=== PATIENT | male | born 1945 | race Caucasian/White ===

== ENCOUNTER → 2017-10-03 11:35 | Outpatient (CLI) | payer OTHER, SELFPAY ==
[2017-10-03 12:37] LABS: Absolute Lymphocyte Count 0.96 X10^3/ul (0.83-4.51); Absolute Neutrophil Count 4.3 X10^3/uL (2.0-7.7); Basophil# 0.04 X10^3/uL; Basophil% 0.6 % (0-1); Eosinophil# 0.16 X10^3/uL; Eosinophils% 2.6 % (0-5); Hematocrit 41.2 % (40-54); Hemoglobin 13.9 g/dl (13.0-16.5); Lymphocyte # 0.96 X10^3/ul (4.0); Lymphocyte % 15.5 % (19-41); Mean Corp Hgb Conc 33.7 g/gl (32-36); Mean Corpuscular Hgb 30.6 pg (27.0-32.0); Mean Corpuscular Volume 90.7 fL (80-94); Mean Platelet Vol. 9.7 fl (6.2-12.0); Monocyte# 0.71 X10^3/uL; Monocyte% 11.5 % (0-10); Neutrophil # 4.32 X10^3/uL (2.7-7.7); Neutrophil % 69.6 % (47-70); Platelet Count 168 K/mm3 (150-450); RBC Distribution Width CV 12.8 % (11.6-14.6); RBC Distribution Width SD 42.1 fl (35.1-43.9); Red Blood Count 4.54 M/mm3 (4.6-6.2); White Blood Count 6.2 K/mm3 (4.4-11.0)
[2017-10-03 12:41] LABS: POSITIVE COUNT NO; POSITIVE DIFFERENTIAL NO; POSITIVE MORPHOLOGY NO
[2017-10-03 12:58] LABS: EST Glomerular Filtration Rate 63 mL/min (>60); Est Glom Filt Rate - Afr Amer 76 mL/min (>60); PSA,Total- Diagnostic 0.69 ng/mL (0.0-4.0)
== END ==
PROVIDERS: Family Provider Family Medicine; PCP Family Medicine; Visit Provider Radiology Radiation Oncology
DX: Z01.818 Encounter for other preprocedural examination (principal); C61 Malignant neoplasm of prostate
CPT/HCPCS: 36415; 82565; 84153; 85025

== ENCOUNTER → 2017-10-04 12:53 | Outpatient (CLI) | payer OTHER, SELFPAY ==
--- NOTE | 2017-10-04 12:57 | CT_ITS ---
STUDY: CT PELVIS WITH CONTRAST REASON FOR EXAM: Male, 72 years old. Prostate carcinoma, radiation therapy planning. RADIATION DOSAGE (If Supplied By Facility): CTDIvol = ( 24.55 ) mGy, DLP = ( 884.90 ) mGycm TECHNIQUE: Transaxial imaging of the pelvis was performed without oral contrast. 100 ml of Isovue 300 contrast was administered intravenously. Individualized dose optimization techniques were used for this CT. COMPARISON: CT abdomen/pelvis 06/23/2017. FINDINGS: Urinary bladder appears moderately distended, mostly filled with IV contrast within the dependent portion showing no filling defects within the IV contrast collection. Fluid is identified in the urinary bladder nondependent portion and also appears within normal limits without large gross focal bulky lesion identified. Prostate is enlarged, approximately 5.3 x 5.3 cm (previously 6.4 x 5.3 cm) and shows mild metal artifacts from the radium radiation therapy seed implantation. In addition, a slightly larger caliber Martinez type urinary catheter is noted within the nonprostatic urethra whose tip is seen at the prostate apex Normal visualized small intestine. Normal visualized colon. Appendix is visualized and shows normal thickness. There is no pelvic fluid. There is no pelvic lymphadenopathy or mass lesion. Incompletely seen round smooth margin well-circumscribed low-attenuation likely lymph node is seen retroaortic region superior to the bifurcation and measures approximately 1.1 x 1.2 cm, unchanged where comparable. Normal visualized pelvic arteries. No ventral or inguinal bowel herniation is seen. Small adipose tissue containing bilateral inguinal hernias are seen. Normal abdominal wall. Normal osseous structures. CT/CT Pelvis W/CONT Therapy IMPRESSION: Status post radiation therapy treatment of the prostate as described. Electronically Signed: Scott Baugh, at 17:18 EDT Tel , Service support ,
[2017-10-04 13:36] LABS: CREATININE FINGERSTICK 1.1 mg/dL (0.70-1.30)
== END ==
PROVIDERS: Family Provider Family Medicine; PCP Family Medicine; Visit Provider Radiology Radiation Oncology
DX: C61 Malignant neoplasm of prostate (principal)
CPT/HCPCS: 51600; 72193; Q9967

== ENCOUNTER → 2017-11-06 10:38 | Outpatient (CLI) | payer OTHER, SELFPAY ==
[2017-11-06 11:53] LABS: Absolute Lymphocyte Count 0.57 X10^3/ul (0.83-4.51); Absolute Neutrophil Count 3.3 X10^3/uL (2.0-7.7); Basophil# 0.02 X10^3/uL; Basophil% 0.4 % (0-1); Eosinophil# 0.21 X10^3/uL; Eosinophils% 4.5 % (0-5); Hematocrit 41.1 % (40-54); Hemoglobin 13.9 g/dl (13.0-16.5); Lymphocyte # 0.57 X10^3/ul (4.0); Lymphocyte % 12.2 % (19-41); Mean Corp Hgb Conc 33.8 g/gl (32-36); Mean Corpuscular Hgb 30.7 pg (27.0-32.0); Mean Corpuscular Volume 90.7 fL (80-94); Monocyte# 0.61 X10^3/uL; Neutrophil # 3.25 X10^3/uL (2.7-7.7); Neutrophil % 69.5 % (47-70); Platelet Count 145 K/mm3 (150-450); RBC Distribution Width CV 13.4 % (11.6-14.6); RBC Distribution Width SD 43.7 fl (35.1-43.9); Red Blood Count 4.53 M/mm3 (4.6-6.2); White Blood Count 4.7 K/mm3 (4.4-11.0)
[2017-11-06 11:54] LABS: Differential Indicated SCAN CRITERIA MET; POSITIVE COUNT NO; POSITIVE DIFFERENTIAL YES; POSITIVE MORPHOLOGY NO
== END ==
PROVIDERS: Family Provider Family Medicine; PCP Family Medicine; Visit Provider Radiology Radiation Oncology
DX: C61 Malignant neoplasm of prostate (principal)
CPT/HCPCS: 36415; 85025

== ENCOUNTER → 2017-11-27 10:33 | Outpatient (CLI) | payer OTHER, SELFPAY ==
[2017-11-27 11:31] LABS: Absolute Lymphocyte Count 0.48 X10^3/ul (0.83-4.51); Basophil# 0.03 X10^3/uL; Basophil% 0.7 % (0-1); Eosinophils% 6.9 % (0-5); Hematocrit 38.8 % (40-54); Hemoglobin 13.4 g/dl (13.0-16.5); Lymphocyte # 0.48 X10^3/ul (4.0); Lymphocyte % 11.1 % (19-41); Mean Corp Hgb Conc 34.5 g/gl (32-36); Mean Corpuscular Hgb 31.5 pg (27.0-32.0); Mean Corpuscular Volume 91.3 fL (80-94); Mean Platelet Vol. 9.5 fl (6.2-12.0); Monocyte# 0.51 X10^3/uL; Monocyte% 11.8 % (0-10); Neutrophil # 2.98 X10^3/uL (2.7-7.7); Platelet Count 152 K/mm3 (150-450); RBC Distribution Width CV 13.3 % (11.6-14.6); RBC Distribution Width SD 43.3 fl (35.1-43.9); Red Blood Count 4.25 M/mm3 (4.6-6.2); White Blood Count 4.3 K/mm3 (4.4-11.0)
[2017-11-27 11:34] LABS: Differential Indicated SCAN CRITERIA MET; POSITIVE COUNT NO; POSITIVE DIFFERENTIAL YES; POSITIVE MORPHOLOGY NO
== END ==
PROVIDERS: Family Provider Family Medicine; PCP Family Medicine; Visit Provider Radiology Radiation Oncology
DX: C61 Malignant neoplasm of prostate (principal)
CPT/HCPCS: 36415; 85025

== ENCOUNTER → 2018-04-25 10:13 | Outpatient (CLI) | payer OTHER, SELFPAY ==
[2018-04-25 12:18] LABS: PSA,Total- Diagnostic < 0.01 ng/mL (0.0-4.0)
== END ==
PROVIDERS: Family Provider Family Medicine; PCP Family Medicine; Referring Provider Urology; Visit Provider Urology
DX: C61 Malignant neoplasm of prostate (principal)
CPT/HCPCS: 36415; 84153

== ENCOUNTER → 2018-10-25 14:57 | Outpatient (CLI) | payer OTHER, SELFPAY ==
[2018-10-25 16:39] LABS: PSA,Total- Diagnostic 0.09 ng/mL (0.0-4.0)
== END ==
PROVIDERS: Family Provider Family Medicine; PCP Family Medicine; Referring Provider Urology; Visit Provider Urology
DX: C61 Malignant neoplasm of prostate (principal)
CPT/HCPCS: 36415; 84153

== ENCOUNTER → 2019-04-08 10:59 | Outpatient (CLI) | payer OTHER, SELFPAY ==
[2019-04-08 12:27] LABS: Absolute Lymphocyte Count 0.63 X10^3/uL (0.83-4.51); Absolute Neutrophil Count 3.2 X10^3/uL (2.0-7.7); Basophil# 0.04 X10^3/uL; Basophil% 0.9 % (0-1); Eosinophil# 0.17 X10^3/uL; Eosinophils% 3.7 % (0-5); Hematocrit 40.9 % (40-54); Hemoglobin 13.5 g/dL (13.0-16.5); Lymphocyte # 0.63 X10^3/ul (4.0); Lymphocyte % 13.8 % (19-41); Mean Corpuscular Hgb 30.7 pg (27.0-32.0); Mean Platelet Vol. 9.8 fl (6.2-12.0); Monocyte# 0.52 X10^3/uL; Monocyte% 11.4 % (0-10); NRBC Flagged by Analyzer 0 % (0-5); Neutrophil # 3.18 X10^3/uL (2.7-7.7); Platelet Count 143 K/mm3 (150-450); RBC Distribution Width CV 12.8 % (11.6-14.6); RBC Distribution Width SD 43.8 fl (35.1-43.9); White Blood Count 4.6 K/mm3 (4.4-11.0)
[2019-04-08 13:09] LABS: Anion Gap 6 (5-15); BUN 20 mg/dL (7-18); BUN/Creat Ratio 15.6 RATIO (10-20); Calcium,Total 9.1 mg/dL (8.5-10.1); Chloride 109 mmol/L (98-107); Creatinine, Serum 1.28 mg/dL (0.70-1.30); EST Glomerular Filtration Rate 58 mL/min (>60); Est Glom Filt Rate - Afr Amer 71 mL/min (>60); Glucose 94 mg/dL (74-106); Magnesium 2.2 mg/dL (1.6-2.6); Potassium 4.1 mmol/L (3.5-5.1); Sodium Level 143 mmol/L (136-145); T4 Free Direct 1.03 ng/dL (0.76-1.46); Thyroid Stim Hormone (TSH) 1.54 uIU/mL (0.358-3.74)
== END ==
PROVIDERS: Family Provider Family Medicine; PCP Family Medicine; Visit Provider Family Medicine
DX: I48.91 Unspecified atrial fibrillation (principal)
CPT/HCPCS: 36415; 80048; 83735; 84439; 84443; 85025

== ENCOUNTER → 2019-04-08 11:22 | Outpatient (CLI) | payer OTHER, SELFPAY ==
--- NOTE | 2019-04-08 11:29 | RAD_ITS ---
STUDY: X-RAY - RIGHT HAND REASON FOR EXAM: Male, 73 years old. Pain TECHNIQUE: 3 view(s) of the hand. COMPARISON: None. FINDINGS: There is mild joint space narrowing of the radiocarpal articulation consistent with degenerative arthrosis. Normal distal radioulnar joint. Normal visualized carpal bones. Normal carpal articulations There is mild degenerative arthrosis of the carpometacarpal (CMC) articulation of the thumb. Normal second through fifth carpometacarpal joints. There is a mildly demineralized appearance of the metacarpal bones. There is well-corticated irregularity of the fifth metacarpal suggesting old injury. Normal metacarpophalangeal joint of the thumb. Normal interphalangeal joint of the thumb. There is degenerative change of the distal interphalangeal joint of the second and third digits. Normal metacarpophalangeal joints of the second through fifth fingers. Normal proximal and distal interphalangeal joints of the second through fifth fingers. Normal phalanges of the second through fifth fingers. The soft tissue structures are unremarkable. RAD/Hand Min 3 Views IMPRESSION: Old fracture fifth metacarpal suspected. Degenerative change of the wrist, first metacarpal and distal interphalangeal joints suspicious for osteoarthritis. Electronically Signed: Triny Ramsey MD at 16:31 EDT Tel , Service support ,
== END ==
PROVIDERS: Family Provider Family Medicine; PCP Family Medicine; Referring Provider Family Medicine; Visit Provider Family Medicine
DX: M79.644 Pain in right finger(s) (principal)
CPT/HCPCS: 73130

== ENCOUNTER 2019-04-09 18:00 | Emergency (ER) | payer OTHER, SELFPAY ==
[2019-04-09 18:02] VITALS: BP 135/83; PULSE 93; RESP 17; TEMP 36.4; O2SAT 94; BMI 27.6
--- NOTE | 2019-04-09 18:46 | EKG12_ITS ---
Test Reason : PALPATATIONS Blood Pressure : / mmHG Vent. Rate : 069 BPM Atrial Rate : 069 BPM P-R Int : 172 ms QRS Dur : 094 ms QT Int : 398 ms P-R-T Axes : 023 001 025 degrees QTc Int : 426 ms Normal sinus rhythm Normal ECG Confirmed by STAN BELL ([id number]), editor continuity and script STEPHIE VALENTINE ([id number]) on 04/15/2019 12:14:17 PM Referred By: CHACE Confirmed By:STAN BELL
--- NOTE | 2019-04-09 18:47 | ED.VIS.GEN ---
History of Present Illness Chief Complaint: Palpitations Informant: Patient Onset: Days Narrative: Patient presents with a 5-day history of intermittent palpitations. He has a history of paroxysmal A. fib and SVT. He had an ablation performed in 2016 and has not had any symptoms until 5 days ago. Patient states every day for the past 5 days he has had an episode where he feels like his heart is beating fast and irregular. He states his heart rate will get up to maybe 130. He was given instructions to take a dose of metoprolol 50 mg when this occurs. So far each day this is converted him back to a regular heart rate within the hour. He states he was told if the metoprolol did not work he could take flecainide, but he has not come to that. He is a previous patient of Dr. Lee's and is scheduled to see Dr. Gutierrez next week as a new patient. Patient states he felt pretty bad when he left the house today, but heart rate seems to be controlled at this time. Past Medical History - Allergies and Home Meds Allergies/Adverse Reactions: Allergies No Known Allergies Allergy (Verified 04/09/19 18:01) Primary Care Physician: Rashad Gutierrez MD [STAFF PHYSICIAN] - Keep Declan appointment Vega Ochoa MD [Primary Care Provider] - Prior records reviewed: Yes Past Medical History: - - Reviewed Lives: Spouse/ Significant Other Smoking Status: Never smoker Review of Systems General: Denies: Chills, Fever Eyes: Denies: Visual changes - bilaterally ENT: Denies: Bilateral ear pain Cardiovascular: Reports: Chest pain - With irregular heartbeat only, Palpitations Respiratory: Reports: Dyspnea. Denies: Cough Gastrointestinal: Denies: Abdominal pain, Nausea, Vomiting, Diarrhea Genitourinary: Denies: Dysuria Skin: Denies: Rash Hematologic: Denies: Easy bruising Allergy: Denies: Uticaria Physical Exam Vital Signs/Narrative: Vital Signs Temp Pulse Resp BP Pulse Ox 04/09/19 18:02 97.5 F L 93 17 135/83 H 94 Inital Vital Signs reviewed: Yes General: Well nourished, Well developed Head: Normocephalic ENT: Moist mucous membranes Neck: Supple, Nontender Cardiovascular: Regular rate, Regular rhythm Respiratory: No distress, CTA bilaterally Abdomen: Soft, Nontender Back: Nontender Extremities: Nontender Skin: Normal color, No rash Neurological: Alert, Oriented x3 Psychological: Normal affect Diagnostic/Tx/Re-eval Impressions Chest X-Ray 04/09/19 18:50 IMPRESSION: Left base atelectasis and/or scarring. Otherwise, unremarkable examination. Electronically Signed: Mathew Mitchell, at 19:15 EDT Tel , Service support , 04/09/19 18:50 Chest 1 View (Portable) [RAD] Stat Laboratory Results 04/09/19 04/09/19 18:20 18:20 WBC 5.3 RBC 4.50 L Hgb 14.0 Hct 41.4 MCV 92.0 MCH 31.1 MCHC 33.8 RDW Std Deviation 42.3 RDW Coeff of Kenji 12.6 Plt Count 163 MPV 9.5 Immature Gran % (Auto) 0.400 Neut % (Auto) 73.9 H Lymph % (Auto) 12.5 L [place] % (Auto) 8.9 Eos % (Auto) 3.4 Baso % (Auto) 0.9 Absolute Neuts (auto) 3.9 Absolute Lymphs (auto) 0.66 L Nucleated RBC % 0 Sodium 140 Potassium 4.1 Chloride 107 Carbon Dioxide 27.0 Anion Gap 6 BUN 22 H Creatinine 1.37 H Estim Creat Clear Calc 48.84 Est GFR (MDRD) Af Amer 65 Est GFR (MDRD) Non-Af 54 L BUN/Creatinine Ratio 16.1 Glucose 124 H Calcium 9.1 Magnesium 2.3 Troponin I < 0.015 - EKG Initial EKG Interpretation: Sinus Rhythm - Sinus at 69 with no acute ischemia. - Medical Decision Making On repeat evaluation patient is resting comfortably. He states that approximately 20 minutes before I came back in he had a short period of the irregular heartbeat. I went to the monitor and pulled up rhythm strips with occasional PACs. I spoke with Dr. Gonzalez, on-call for cardiology. Patient will be given a 48-hour Holter monitor. He will follow-up with Dr. Gutierrez on Monday as scheduled. When I went back into discussed with the patient about the Holter monitor, he was in a bigeminy rhythm with regular sinus beat followed by a PAC. Impression: Palpitations ED Disposition - Plan for ED Patient: Disposition: Home or Assisted Living Diagnosis: Palpitations Instructions: Palpitations Referrals: Vega Ochoa MD [Primary Care Provider] - Rashad Gutierrez MD [STAFF PHYSICIAN] - Keep Declan appointment
--- NOTE | 2019-04-09 18:50 | RAD_ITS ---
STUDY: X-RAY CHEST REASON FOR EXAM: Male, 73 years old. Chest pain TECHNIQUE: Frontal view of the chest COMPARISON: X-Ray Chest September 20, 2016 FINDINGS: Left base atelectasis and/or scarring is present. The lungs are otherwise unremarkable. The lungs are clear. There are no pleural effusions. There is no pneumothorax. The heart is normal in size. The visualized osseous structures are within normal limits. RAD/Chest 1 View (Portable) IMPRESSION: Left base atelectasis and/or scarring. Otherwise, unremarkable examination. Electronically Signed: Mathew Mitchell, at 19:15 EDT Tel , Service support ,
[2019-04-09 18:55] LABS: Absolute Lymphocyte Count 0.66 X10^3/uL (0.83-4.51); Absolute Neutrophil Count 3.9 X10^3/uL (2.0-7.7); Basophil# 0.05 X10^3/uL; Basophil% 0.9 % (0-1); Eosinophil# 0.18 X10^3/uL; Eosinophils% 3.4 % (0-5); Hematocrit 41.4 % (40-54); Lymphocyte # 0.66 X10^3/ul (4.0); Lymphocyte % 12.5 % (19-41); Mean Corp Hgb Conc 33.8 g/dL (32-36); Mean Corpuscular Hgb 31.1 pg (27.0-32.0); Mean Platelet Vol. 9.5 fl (6.2-12.0); Monocyte# 0.47 X10^3/uL; Monocyte% 8.9 % (0-10); NRBC Flagged by Analyzer 0 % (0-5); Neutrophil # 3.92 X10^3/uL (2.7-7.7); Neutrophil % 73.9 % (47-70); Platelet Count 163 K/mm3 (150-450); RBC Distribution Width CV 12.6 % (11.6-14.6); RBC Distribution Width SD 42.3 fl (35.1-43.9); White Blood Count 5.3 K/mm3 (4.4-11.0)
[2019-04-09 19:01] VITALS: BP 142/85; PULSE 76; RESP 18; O2SAT 95
[2019-04-09 19:11] LABS: Anion Gap 6 (5-15); BUN 22 mg/dL (7-18); BUN/Creat Ratio 16.1 RATIO (10-20); Calcium,Total 9.1 mg/dL (8.5-10.1); Chloride 107 mmol/L (98-107); Creatinine, Serum 1.37 mg/dL (0.70-1.30); EST Glomerular Filtration Rate 54 mL/min (>60); Est Glom Filt Rate - Afr Amer 65 mL/min (>60); Estimated Creatinine Clearance 48.84 ml/min; Glucose 124 mg/dL (74-106); Magnesium 2.3 mg/dL (1.6-2.6); Potassium 4.1 mmol/L (3.5-5.1); Sodium Level 140 mmol/L (136-145)
[2019-04-09] MEDS: 0.9% Normal Saline 1,000 ML 150 ML IV (19:15)
== END 2019-04-09 20:17 | disposition home or self-care (01) ==
PROVIDERS: Emergency Provider Emergency Medicine; Family Provider Family Medicine; PCP Family Medicine
DX: R00.2 Palpitations (principal); I48.0 Paroxysmal atrial fibrillation; I47.1 Supraventricular tachycardia; I49.1 Atrial premature depolarization; Z79.82 Long term (current) use of aspirin; Z79.899 Other long term (current) drug therapy
CPT/HCPCS: 71045; 80048; 83735; 84484; 85025; 93005; 93225; 93226; 96360; 99285; J7030; A4216

== ENCOUNTER → 2019-04-09 19:42 | Outpatient (CLI) | payer OTHER, SELFPAY ==
[2019-04-09 18:02] VITALS: BMI 27.6
== END ==
PROVIDERS: Family Provider Family Medicine; PCP Family Medicine; Visit Provider Internal Medicine Cardiovascular Disease
DX: R00.2 Palpitations (principal)
CPT/HCPCS: 93225; 93226

== ENCOUNTER → 2019-04-10 10:36 | Outpatient (CLI) | payer OTHER, SELFPAY ==
[2019-04-09 18:02] VITALS: BMI 27.6
--- NOTE | 2019-04-10 10:44 | ECHOCS_ITS ---
Reason For Study: AFIB Procedure This was a 2D Doppler, Color Flow transthoracic echocardiogram. Contrast injection was performed. Exam performed in department. Left Ventricle Normal size and thickness. The estimated ejection fraction is 55 %. Normal diastology for age. No regional wall motion abnormalities noted. Right Ventricle Normal right ventricle. Normal systolic function. Atria Normal left atrium. Normal right atrium. No doppler evidence for ASD. Mitral Valve There is no stenosis. No mitral valve insufficiency. Tricuspid Valve There is no tricuspid stenosis. Trivial tricuspid valve insufficiency. Pulmonary artery systolic pressure is 30 mmHg. Aortic Valve Trisinus/trileaflet aortic valve. There is no aortic stenosis. No aortic valve insufficiency. Pulmonic Valve There is no pulmonic valvular stenosis. Trivial pulmonic valve insufficiency. Great Vessels Normal aortic root. Pericardium/Pleural No pericardial effusion. Medication 22 gauge I.V. with prn adaptor inserted into right arm. Diluted definity 4.0ml given slow IV push to enhance endocardial definition. MMode/2D Measurements & Calculations LVIDd: 4.4 cm IVSd: 0.76 cm Ao root diam: 4.0 cm LVIDs: 3.1 cm LVPWd: 0.90 cm RVDd: 3.1 cm FS: 30.7 % LAV(MOD-bp): 37.7 ml EDV(MOD-sp4): 109.9 ml EDV(MOD-sp2): 100.9 ml LAV(MOD-bp) Indexed: 18.4 ml/m2 ESV(MOD-sp4): 45.8 ml EF(MOD-sp2): 57.5 % LAV(MOD-sp2): 42.6 ml EF(MOD-sp4): 58.3 % LAV(MOD-sp4): 31.1 ml SV(MOD-sp4): 64.1 ml SV(MOD-sp2): 58.1 ml LA A4 area: 13.7 cm2 LA dimension(2D): 3.8 cm RA A4 area: 11.1 cm2 Time Measurements MV dec time: 0.22 sec Doppler Measurements & Calculations MV E max alfred: 71.0 cm/sec Lat Peak E' Alfred: 10.2 cm/sec Med Peak E' Alfred: 7.0 cm/sec MV A max alfred: 78.2 cm/sec E/E' lat: 7.0 E/E' med: 10.1 MV E/A: 0.91 Ao V2 max: 99.8 cm/sec LV V1 max: 104.9 cm/sec PA V2 max: 77.8 cm/sec Ao max P.0 mmHg LV V1 max P.4 mmHg PI end-d alfred: 72.4 cm/sec TR max alfred: 239.4 cm/sec TR max P.9 mmHg Interpretation Summary The study was technically limited. Diluted definity 4.0ml given slow IV push to enhance endocardial definition. The estimated ejection fraction is 55 %. Normal diastology for age. Trivial tricuspid valve insufficiency. Pulmonary artery systolic pressure is 30 mmHg. Trivial pulmonic valve insufficiency. The study was technically limited. Ordering Physician: Vega Ochoa Referring Physician: Vega Ochoa Performed By: Brittni Link, GARRICK, RVT
== END ==
PROVIDERS: Family Provider Family Medicine; PCP Family Medicine; Referring Provider Family Medicine; Visit Provider Family Medicine
DX: I48.91 Unspecified atrial fibrillation (principal)
CPT/HCPCS: 93306; Q9957; A4216; C8929

== ENCOUNTER → 2019-05-03 10:33 | Outpatient (CLI) | payer OTHER, SELFPAY ==
[2019-04-15 10:54] VITALS: BMI 27.5
[2019-05-03 17:18] LABS: PSA,Total- Diagnostic 0.12 ng/mL (0.0-4.0)
== END ==
PROVIDERS: Family Provider Family Medicine; PCP Family Medicine; Referring Provider Urology; Visit Provider Urology
DX: C61 Malignant neoplasm of prostate (principal)
CPT/HCPCS: 36415; 84153; G0103

== ENCOUNTER → 2019-10-31 10:07 | Outpatient (CLI) | payer OTHER, SELFPAY ==
[2019-04-15 10:54] VITALS: BMI 27.5
[2019-10-31 12:36] LABS: PSA,Total- Diagnostic 0.21 ng/mL (0.0-4.0)
== END ==
PROVIDERS: PCP Family Medicine; Referring Provider Urology; Visit Provider Urology
DX: Z85.46 Personal history of malignant neoplasm of prostate (principal)
CPT/HCPCS: 36415; 84153

== ENCOUNTER → 2020-01-09 14:20 | Outpatient (CLI) | payer MEDICARE, OTHER, SELFPAY ==
[2019-04-15 10:54] VITALS: BMI 27.5
--- NOTE | 2020-01-09 14:25 | VDUE_ITS ---
Reason For Study: pain, edema Right Proximal Right jugular vein is spontaneous, widely patent, phasic, with no intraluminal echogenicity noted. Right subclavian vein is spontaneous, widely patent, phasic, with no intraluminal echogenicity noted. Right Lower Arm Right radial vein is compressible. Right ulnar vein is compressible. Right Arm Right axillary vein is spontaneous, patent, phasic, competent, compressible and demonstrates augmentation. Right brachial vein is compressible. Right cephalic vein is compressible. Right basilic vein is compressible. Prelim to Dr. Knox. Interpretation Summary Deep veins of the right upper extremity are patent and compressible segmentally. There is no evidence of deep vein thrombosis. The superficial veins of the right upper extremity, the basilic and cephalic veins, are patent and compressible. There is no evidence of right upper extremity superficial thrombophlebitis involving the veins imaged. Ordering Physician: Jordana Knox Performed By: Campbell Barillas RVT ?
== END ==
PROVIDERS: PCP Family Medicine; Referring Provider Family Medicine; Visit Provider Family Medicine
DX: M79.601 Pain in right arm (principal); R22.31 Localized swelling, mass and lump, right upper limb
CPT/HCPCS: 93971

== ENCOUNTER → 2020-01-16 08:40 | Outpatient (CLI) | payer MEDICARE, OTHER, SELFPAY ==
[2019-04-15 10:54] VITALS: BMI 27.5
== END ==
PROVIDERS: PCP Family Medicine; Referring Provider Urology; Visit Provider Urology
DX: R30.0 Dysuria (principal)
CPT/HCPCS: 87086

== ENCOUNTER → 2020-02-12 15:44 | Outpatient (CLI) | payer MEDICARE, OTHER, SELFPAY ==
[2020-02-12 14:50] VITALS: BMI 26.2
[2020-02-12 16:47] LABS: Absolute Lymphocyte Count 0.96 X10^3/uL (0.83-4.51); Absolute Neutrophil Count 4.4 X10^3/uL (2.0-7.7); Basophil# 0.07 X10^3/uL; Basophil% 1.1 % (0-1); Eosinophil# 0.18 X10^3/uL; Eosinophils% 2.9 % (0-5); Hematocrit 43.4 % (40-54); Hemoglobin 14.6 g/dL (13.0-16.5); Lymphocyte # 0.96 X10^3/ul (4.0); Lymphocyte % 15.3 % (19-41); Mean Corp Hgb Conc 33.6 g/dL (32-36); Mean Corpuscular Hgb 31.5 pg (27.0-32.0); Mean Corpuscular Volume 93.7 fL (80-94); Mean Platelet Vol. 9.3 fl (6.2-12.0); Monocyte# 0.59 X10^3/uL; Monocyte% 9.4 % (0-10); NRBC Flagged by Analyzer 0 % (0-5); Neutrophil # 4.44 X10^3/uL (2.7-7.7); Platelet Count 186 K/mm3 (150-450); RBC Distribution Width CV 12.8 % (11.6-14.6); RBC Distribution Width SD 43.7 fl (35.1-43.9); Red Blood Count 4.63 M/mm3 (4.6-6.2); White Blood Count 6.3 K/mm3 (4.4-11.0)
[2020-02-12 17:43] LABS: Anion Gap 3 (5-15); BUN 23 mg/dL (7-18); Chloride 109 mmol/L (98-107); Creatinine, Serum 1.28 mg/dL (0.70-1.30); EST Glomerular Filtration Rate 58 mL/min (>60); Est Glom Filt Rate - Afr Amer 70 mL/min (>60); Glucose 99 mg/dL (74-106); Potassium 4.8 mmol/L (3.5-5.1); Sodium Level 142 mmol/L (136-145); Thyroid Stim Hormone (TSH) 1.77 uIU/mL (0.358-3.74)
== END ==
PROVIDERS: PCP Family Medicine; Referring Provider Specialist; Visit Provider Specialist
DX: I48.0 Paroxysmal atrial fibrillation (principal); E78.5 Hyperlipidemia, unspecified
CPT/HCPCS: 36415; 80048; 84443; 85025

== ENCOUNTER → 2020-05-05 09:27 | Outpatient (CLI) | payer MEDICARE, OTHER, SELFPAY ==
[2020-02-12 14:50] VITALS: BMI 26.2
[2020-05-05 10:33] LABS: PSA,Total- Diagnostic 0.27 ng/mL (0.0-4.0)
== END ==
PROVIDERS: PCP Family Medicine; Referring Provider Urology; Visit Provider Urology
DX: C61 Malignant neoplasm of prostate (principal)
CPT/HCPCS: 36415; 84153

== ENCOUNTER → 2020-11-27 09:03 | Outpatient (CLI) | payer MEDICARE, OTHER, SELFPAY ==
[2020-08-19 14:00] VITALS: BMI 26.8
== END ==
PROVIDERS: PCP Family Medicine; Referring Provider Internal Medicine Cardiovascular Disease; Visit Provider Internal Medicine Cardiovascular Disease
DX: I48.0 Paroxysmal atrial fibrillation (principal); I47.1 Supraventricular tachycardia; Z51.81 Encounter for therapeutic drug level monitoring; Z79.899 Other long term (current) drug therapy; Z98.890 Other specified postprocedural states
CPT/HCPCS: 93225; 93226

== ENCOUNTER 2021-08-19 09:36 | Outpatient (CLI) | payer MEDICARE, OTHER, SELFPAY ==
[2021-08-19 10:57] LABS: PSA,Total- Diagnostic 0.56 ng/mL (0.0-4.0)
== END 2021-08-19 23:59 | disposition home or self-care (01) ==
LOC: LAB 09:38
PROVIDERS: PCP Family Medicine; Referring Provider Urology; Visit Provider Urology
DX: Z85.46 Personal history of malignant neoplasm of prostate (principal)
CPT/HCPCS: 36415; 84153

== ENCOUNTER → 2022-01-26 | Outpatient (CLI) | payer MEDICARE, OTHER, SELFPAY ==
--- NOTE | 2022-01-26 08:15 | RAD_ITS ---
STUDY: X-RAY - ESOPHAGUS (BARIUM SWALLOW) WITH FLUOROSCOPY REASON FOR EXAM: Male, 76 years old. DYSPHAGIA TECHNIQUE: 17 view(s) of the esophagus were obtained following swallowing of barium. FLUOROSCOPY TIME (if supplied): (29 seconds) minutes/seconds COMPARISON: None. FINDINGS: There is no demonstrated esophageal foreign body. There is no demonstrated stricture or mucosal abnormality. Normal gastroesophageal junction, without a demonstrated hiatal hernia. The patient ingested a 12 mm tablet of barium without any difficulty. Normal visualized aortic arch and descending thoracic aorta. Normal visualized pulmonary parenchyma. There are diffuse degenerative changes of the visualized thoracic spine. RAD/Esophagus Dual Contrast IMPRESSION: Normal plain film x-ray examination (barium swallow) of the esophagus. Electronically Signed: Ever Ann MD at 12:05 EDT ,
== END | disposition home or self-care (01) ==
LOC: RAD 07:55
PROVIDERS: PCP Family Medicine; Referring Provider Otolaryngology; Visit Provider Otolaryngology
DX: R13.10 Dysphagia, unspecified (principal)
CPT/HCPCS: 74221

== ENCOUNTER 2022-01-31 09:52 | Emergency (ER) | payer MEDICARE, OTHER, SELFPAY ==
[2022-01-31 09:52] VITALS: BP 135/79; PULSE 56; RESP 16; TEMP 35.9; O2SAT 98; BMI 27.2
--- NOTE | 2022-01-31 10:02 | EKG12_ITS ---
Test Reason : cp Blood Pressure : / mmHG Vent. Rate : 050 BPM Atrial Rate : 050 BPM P-R Int : 214 ms QRS Dur : 102 ms QT Int : 472 ms P-R-T Axes : 030 005 043 degrees QTc Int : 430 ms Sinus bradycardia with 1st degree A-V block Otherwise normal ECG Confirmed by RAMÍREZ PICKERING, PUNEET ([id number]), desk editor MARYBETH ADAMES ([id number]) on 02/01/2022 11:37:57 AM Referred By: Confirmed By:PUNEET ELMORE MD
--- NOTE | 2022-01-31 10:25 | EDS_ITS ---
HPI History of Present Illness Chief Complaint: Chest Pain Informant: patient Narrative Narrative: Patient is a 76-year-old male with history of atrial fibrillation on flecainide, metoprolol and Eliquis as well as GERD on omeprazole presenting with episodes of chest pain. Patient states he gets intermittent episodes of discomfort in his left chest that radiates across his entire left side to his shoulder and neck in a spiderweb pattern for the past 2 weeks. He had 2 episodes in the past 2 weeks and then last night had an episode and then woke up this morning with another episode. Daily last for seconds at a time. He states he has been feeling a little slower and rundown lately. He is currently following with ENT for recurrent cough he is been having for the past few years. He spoke with Dr. Velasquez's office today who recommend he come to the emergency room as he could not get him in quickly. Patient currently denies any complaints besides feeling a little fatigued. States he has been compliant with his Eliquis has not missed any doses. Also states that he wants to make sure he is okay as he is plan on leaving the country in March and wants to get ahead of it. No other complaints at this time. [facility] Medical History Asthma GERD (gastroesophageal reflux disease) Gout History of prostate cancer History of testicular mass Hyperlipidemia Paroxysmal atrial fibrillation SVT (supraventricular tachycardia) Thoracic aortic aneurysm Home Medications omeprazole 20 mg capsule,delayed release 20 mg PO DAILY 09/20/16 [History Last Taken Unknown] flecainide 100 mg tablet 100 mg PO Q12H atrial fibrillation #60 tabs 12/03/20 [Rx Last Taken Unknown] cefdinir 300 mg capsule 300 mg PO BID 08/19/21 [History Last Taken Unknown] apixaban 5 mg tablet 5 mg PO BID #180 tabs 09/02/21 [Rx Last Taken Unknown] metoprolol succinate 50 mg tablet,extended release 24 hr 50 mg PO DAILY #30 tabs 11/24/21 [Rx Last Taken Unknown] Allergy/AdvReac Type Severity Reaction Status Date / Time No Known Allergies Allergy Verified 08/19/21 08:49 Surgical History History of nasal septoplasty History of radiofrequency ablation procedure for cardiac arrhythmia (2014) History of surgical removal of ganglion cyst Social History Smoking Status: Never smoker alcohol intake: current alcohol intake frequency: a few times a month Alcohol type: wine substance use type: does not use caffeine: No what type of physical activity do you participate in: walking ROS ROS ED Constitutional Constitutional ED: Reports other Details: fatigue ; Denies chills or fever(s) Eyes Eyes: Denies blurry vision or change in vision ENT ENT ED: Denies rhinorrhea or sore throat Cardiovascular Cardiovascular: Reports as per HPI and chest pain; Denies palpitations Respiratory/Chest Respiratory/Chest: Reports cough; Denies dyspnea or dyspnea on exertion Gastrointestinal Gastrointestinal: Denies abdominal pain, nausea or vomiting Genitourinary Genitourinary ED: Denies dysuria or urinary frequency Musculoskeletal Musculoskeletal: Denies arthralgias or myalgias Integumentary Denies rash Neurologic Neurologic: Denies headache(s), paresthesias or weakness Psychiatric Psychiatric: Denies anxiety Hematologic/Lymphatic Hematologic/Lymphatic: Reports easy bleeding and easy bruising EXAM Physical Exam Const Vital Signs: 01/31/22 09:52 01/31/22 10:27 01/31/22 10:27 Temperature 96.6 F L Temperature Source Temporal Pulse Rate 56 L Respiratory Rate 16 Respiratory Effort Normal Non-Labored Blood Pressure 135/79 H Blood Pressure Mean 97 Pulse Ox 98 Oxygen Delivery Method Room Air Room Air 01/31/22 12:19 01/31/22 14:23 Temperature Temperature Source Pulse Rate 47 L 51 L Respiratory Rate 18 18 Respiratory Effort Blood Pressure 145/90 H 137/82 H Blood Pressure Mean 108 Pulse Ox 96 98 Oxygen Delivery Method Room Air Positive well nourished and well developed General Appearance ED: well developed and NAD HEENT Reports moist mucous membranes normocephalic and atraumatic Eyes PERRL and EOMs intact bilaterally General Eye ED: Negative for pale conjunctiva Neck supple and no JVD Chest Wall inspection of chest normal and palpation of chest normal Resp normal respiratory effort and clear to auscultation bilaterally Auscultation: Negative for rales, rhonchi or wheezes Cardio regular rhythm and no murmurs Rate: bradycardia Peripheral Pulses: pulses 2+ throughout GI normal to inspection, nondistended, normoactive bowel sounds and soft to palpation Back/Spine no CVA tenderness Extremity normal to inspection General Extremety ED: Negative for edema or tenderness General Extremity: Negative for edema Neuro oriented x3 Neuro Narrative: no focal deficits Motor Exam: Negative for general weakness Psych mental status grossly normal Skin no rashes or lesions noted General Skin Exam: Negative for jaundice Heart Score History: Slightly/Non-Suspicious ECG: Normal Age: >/= 65 years Risk Factors: 1 or 2 Risk Factors Troponin: </= Normal Limit Score: 3 MDM MDM MDM Narrative Medical decision making narrative: Patient evaluated for atypical intermittent chest pain that has been going on for the past 2 weeks was been more frequent in the past 24 hours. Currently asymptomatic. Vital signs remarkable for bradycardia which likely is secondary to metoprolol and flecainide therapy. High since he troponin is normal x4. No acute ischemic EKG changes. EKG does show first-degree AV block and bradycardia but no other arrhythmia. CBC shows a mild leukopenia which is chronic for the patient. BMP unremarkable. Chest x-ray interpreted by myself as well as radiology does not show any acute process but does show a moderate haital hernia. 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 Velasquez, who will set the patient up for outpatient Holter monitor as we are currently out of them in the ER. He does not recommend any further inpatient work-up, testing or medication changes. Patient is agreeable this plan of care. Is discharged home in stable condition. Counseled on return precautions. Patient is counseled he does have a moderate hiatal hernia on his chest x-ray and this could be contributing to some of his chest discomfort as well as his chronic cough. He is given referral for GI for this. Lab Data Attestation: I reviewed the patient's lab results. Labs: Laboratory Results - last 24 hr 01/31/22 01/31/22 01/31/22 10:25 10:25 12:23 WBC 4.2 L RBC 4.57 L Hgb 14.4 Hct 42.2 MCV 92.3 MCH 31.5 MCHC 34.1 RDW Std Deviation 43.9 RDW Coeff of Kenji 13.0 Plt Count 148 L MPV 9.1 Immature Gran % (Auto) 0.200 Neut % (Auto) 63.1 Lymph % (Auto) 18.1 L [place] % (Auto) 12.8 H Eos % (Auto) 4.6 Baso % (Auto) 1.2 H Absolute Neuts (auto) 2.6 Absolute Lymphs (auto) 0.75 L Nucleated RBC % 0 Sodium 140 Potassium 4.3 Chloride 109 H Carbon Dioxide 28.0 Anion Gap 3 L BUN 23 H Creatinine 1.33 H Estim Creat Clear Calc 48.03 Est GFR (MDRD) Af Amer 67 Est GFR (MDRD) Non-Af 55 L BUN/Creatinine Ratio 17.3 Glucose 107 H Calcium 9.1 Magnesium 2.1 Troponin I High Sens 4 4 Radiography Diagnostic Testing: Clinical Impression(s) from Imaging Studies Chest X-Ray 01/31/22 10:40 IMPRESSION: Stable mild increased markings at the left lung base suggestive of scarring. Moderate sized hiatal hernia. Electronically Signed: Ever Ann MD at 10:54 EDT Reading Location ID and State: [facility] / [place] , Service support , Rhythm Strip Rhythm Strip: Sinus bradycardia Rate: 50 Ectopy: None EKG Initial EKG: Interpretation: Sinus Bradycardia Comments: Sinus bradycardia at a rate of 50 First-degree AV block, MI interval 214 Normal axis Normal QRS and QTc Normal ST segments Discharge Plan Triage Chief Complaint: Chest Pain ED Provider: Shaneka Rachel Dx/Rx/DC Orders Clinical Impression: Chest pain, Paroxysmal atrial fibrillation, Hernia, hiatal Instructions: ED Chest Pain, Uncertain Cause, ED Hiatal Hernia Prescriptions: No Action cefdinir 300 mg capsule 300 mg PO BID omeprazole 20 MG capsule 20 mg PO DAILY flecainide 100 mg tablet 100 mg PO Q12H Qty: 60 11RF apixaban 5 mg tablet 5 mg PO BID Qty: 180 4RF metoprolol succinate 50 mg tablet extended release 24 hr 50 mg PO DAILY Qty: 30 11RF Primary Care Provider: Vega Ochoa Referrals: Anuj Velasquez MD [STAFF PHYSICIAN] - Enoc Sanchez DO [STAFF PHYSICIAN] - Vega Ochoa MD [Primary Care Provider] - Activity Restrictions/Additional Instructions: Please follow-up with Dr. Velasquez. His office will arrange for a Holter monitor test that should be contacting you. Please call them if you do not hear from him in the next day. Disposition Disposition: Home, Self Care Discharge Date/Time: 01/31/22 14:23
[2022-01-31 10:33] LABS: Absolute Lymphocyte Count 0.75 X10^3/uL (0.83-4.51); Absolute Neutrophil Count 2.6 X10^3/uL (2.0-7.7); Basophil# 0.05 X10^3/uL; Basophil% 1.2 % (0-1); Eosinophil# 0.19 X10^3/uL; Eosinophils% 4.6 % (0-5); Hematocrit 42.2 % (40-54); Hemoglobin 14.4 g/dL (13.0-16.5); Lymphocyte # 0.75 X10^3/ul (0.83-4.51); Lymphocyte % 18.1 % (19-41); Mean Corp Hgb Conc 34.1 g/dL (32-36); Mean Corpuscular Hgb 31.5 pg (27.0-32.0); Mean Corpuscular Volume 92.3 fL (80-94); Mean Platelet Vol. 9.1 fl (6.2-12.0); Monocyte# 0.53 X10^3/uL; Monocyte% 12.8 % (0-10); NRBC Flagged by Analyzer 0 % (0-5); Neutrophil # 2.62 X10^3/uL (2.7-7.7); Neutrophil % 63.1 % (47-70); Platelet Count 148 K/mm3 (150-450); RBC Distribution Width SD 43.9 fl (35.1-43.9); Red Blood Count 4.57 M/mm3 (4.6-6.2); White Blood Count 4.2 K/mm3 (4.4-11.0)
--- NOTE | 2022-01-31 10:40 | RAD_ITS ---
STUDY: X-RAY CHEST REASON FOR EXAM: Male, 76 years old. Chest pain TECHNIQUE: Single AP portable view of the chest. COMPARISON: Comparison is made with prior study dated 04/09/2019. FINDINGS: EKG electrodes are seen. Stable mild increased linear markings at the left lung base suggestive of scarring. There is no demonstrated pleural abnormality. Normal size heart. Normal mediastinum and devaughn. Normal visualized pulmonary arteries. There is atherosclerotic tortuosity of the aortic arch and descending thoracic aorta. There are diffuse degenerative changes of the visualized thoracic spine. Normal visualized ribs, clavicles, and shoulders. Moderate sized hiatal hernia. RAD/Chest 1 View (Portable) IMPRESSION: Stable mild increased markings at the left lung base suggestive of scarring. Moderate sized hiatal hernia. Electronically Signed: Ever Ann MD at 10:54 EDT ,
[2022-01-31 10:55] LABS: Anion Gap 3 (5-15); BUN 23 mg/dL (7-18); BUN/Creat Ratio 17.3 RATIO (10-20); Calcium,Total 9.1 mg/dL (8.5-10.1); Chloride 109 mmol/L (98-107); Creatinine, Serum 1.33 mg/dL (0.70-1.30); EST Glomerular Filtration Rate 55 mL/min (>60); Est Glom Filt Rate - Afr Amer 67 mL/min (>60); Estimated Creatinine Clearance 48.03 ml/min; Glucose 107 mg/dL (74-106); Magnesium 2.1 mg/dL (1.6-2.6); Potassium 4.3 mmol/L (3.5-5.1); Sodium Level 140 mmol/L (136-145); Troponin-I HS (w/2H Reflex) 4 pg/mL (3.0-78.0)
[2022-01-31 12:19] VITALS: BP 145/90; PULSE 47; RESP 18; O2SAT 96
[2022-01-31 12:29] LABS: Reflex Troponin-HS? (from REC) Y
[2022-01-31 12:53] LABS: Troponin-I HS 4 pg/mL (3.0-78.0)
[2022-01-31 14:23] VITALS: BP 137/82; PULSE 51; RESP 18; O2SAT 98
== END 2022-01-31 14:23 | disposition home or self-care (01) ==
PROVIDERS: Emergency Provider Emergency Medicine; PCP Family Medicine; Visit Provider Emergency Medicine
DX: R07.9 Chest pain, unspecified (principal); I48.0 Paroxysmal atrial fibrillation; E78.5 Hyperlipidemia, unspecified; D72.819 Decreased white blood cell count, unspecified; R00.1 Bradycardia, unspecified; K44.9 Diaphragmatic hernia without obstruction or gangrene; M10.9 Gout, unspecified; J45.909 Unspecified asthma, uncomplicated; K21.9 Gastro-esophageal reflux disease without esophagitis; Z79.01 Long term (current) use of anticoagulants; Z79.899 Other long term (current) drug therapy
CPT/HCPCS: 71045; 80048; 83735; 84484; 85025; 93005; 99283; A4216

== ENCOUNTER → 2022-02-07 | Outpatient (CLI) | payer MEDICARE, OTHER, SELFPAY ==
[2022-02-07 13:51] LABS: PSA,Total- Diagnostic 0.56 ng/mL (0.0-4.0)
== END | disposition home or self-care (01) ==
PROVIDERS: Urology; PCP Family Medicine; Visit Provider Internal Medicine Cardiovascular Disease
DX: Z85.46 Personal history of malignant neoplasm of prostate (principal)
CPT/HCPCS: 36415; 84153; 93225; 93226

== ENCOUNTER → 2022-03-01 | Outpatient (CLI) | payer MEDICARE, OTHER, SELFPAY ==
[2022-03-01 11:13] LABS: AST(SGOT) 23 U/L (15-37); Alanine Aminotransfer ALT/SGPT 33 U/L (16-61); Albumin, Serum 3.6 g/dL (3.2-5.0); Alkaline Phosphatase 82 U/L (45-117); Bilirubin, Direct 0.22 mg/dL (0.00-0.30); Cholesterol 234 mg/dL (200); Globulin 3.5 g/dL (2.2-4.2); High Density Lipoprotein 47 mg/dL; Protein, Total 7.1 g/dL (6.4-8.2); Triglycerides 286 mg/dL; Very Low Density Lipoprotein 57 mg/dL (5-40)
== END | disposition home or self-care (01) ==
LOC: LAB 09:58
PROVIDERS: PCP Family Medicine; Referring Provider Nurse Practitioner Family; Visit Provider Nurse Practitioner Family
DX: E78.5 Hyperlipidemia, unspecified (principal)
CPT/HCPCS: 36415; 80061; 80076

== ENCOUNTER 2022-10-07 08:10 | Outpatient (RCR) | payer MEDICARE, OTHER, SELFPAY ==
[2022-09-30 09:56] LABS: International Normalized Ratio 1.9; Prothrombin Time (Protime)PT. 21.8 SECONDS (11.7-14.9)
[2022-10-07 09:36] LABS: International Normalized Ratio 5.6; Prothrombin Time (Protime)PT. 50.5 SECONDS (11.7-14.9)
== END 2022-10-07 23:00 | disposition home or self-care (01) ==
LOC: LAB 08:10
PROVIDERS: PCP Internal Medicine; Referring Provider Nurse Practitioner Family; Visit Provider Nurse Practitioner Family
DX: I48.0 Paroxysmal atrial fibrillation (principal); Z79.01 Long term (current) use of anticoagulants
CPT/HCPCS: 36415; 85610

== ENCOUNTER 2022-11-04 07:30 | Outpatient (RCR) | payer MEDICARE, OTHER, SELFPAY ==
[2022-10-10 08:42] LABS: Prothrombin Time (Protime)PT. 38.5 SECONDS (11.7-14.9)
[2022-10-14 08:36] LABS: International Normalized Ratio 2.5; Prothrombin Time (Protime)PT. 26.4 SECONDS (11.7-14.9)
[2022-10-21 08:45] LABS: Prothrombin Time (Protime)PT. 31.2 SECONDS (11.7-14.9)
[2022-11-04 08:55] LABS: Prothrombin Time (Protime)PT. 31.7 SECONDS (11.7-14.9)
== END 2022-11-06 02:14 | disposition home or self-care (01) ==
LOC: LAB 07:30
PROVIDERS: PCP Internal Medicine; Referring Provider Nurse Practitioner Family; Visit Provider Nurse Practitioner Family
DX: I48.0 Paroxysmal atrial fibrillation (principal); Z79.01 Long term (current) use of anticoagulants
CPT/HCPCS: 36415; 85610

== ENCOUNTER → 2022-11-15 | Outpatient (CLI) | payer MEDICARE, OTHER, SELFPAY ==
[2022-11-15 10:14] LABS: PSA,Total- Diagnostic 0.65 ng/mL (0.0-4.0)
== END | disposition home or self-care (01) ==
LOC: LAB 09:18
PROVIDERS: PCP Internal Medicine; Referring Provider Urology; Visit Provider Urology
DX: C61 Malignant neoplasm of prostate (principal)
CPT/HCPCS: 36415; 84153

== ENCOUNTER 2022-11-25 07:36 | Outpatient (RCR) | payer MEDICARE, OTHER, SELFPAY ==
[2022-11-25 09:04] LABS: International Normalized Ratio 3.3
== END 2022-11-25 09:00 | disposition home or self-care (01) ==
LOC: LAB 07:36
PROVIDERS: PCP Internal Medicine; Referring Provider Nurse Practitioner Family; Visit Provider Nurse Practitioner Family
DX: I48.0 Paroxysmal atrial fibrillation (principal); Z79.01 Long term (current) use of anticoagulants
CPT/HCPCS: 36415; 85610

== ENCOUNTER 2022-12-27 07:36 | Outpatient (RCR) | payer MEDICARE, OTHER, SELFPAY ==
[2022-12-09 08:15] LABS: International Normalized Ratio 2.7; Prothrombin Time (Protime)PT. 28.7 SECONDS (11.7-14.9)
[2022-12-27 08:36] LABS: International Normalized Ratio 2.5; Prothrombin Time (Protime)PT. 26.8 SECONDS (11.7-14.9)
== END 2022-12-27 18:00 | disposition home or self-care (01) ==
LOC: LAB 07:36
PROVIDERS: PCP Internal Medicine; Referring Provider Nurse Practitioner Family; Visit Provider Nurse Practitioner Family
DX: I48.0 Paroxysmal atrial fibrillation (principal); Z79.01 Long term (current) use of anticoagulants
CPT/HCPCS: 36415; 85610

== ENCOUNTER 2023-02-06 07:22 | Outpatient (RCR) | payer MEDICARE, OTHER, SELFPAY ==
[2023-01-20 08:24] LABS: International Normalized Ratio 3.1; Prothrombin Time (Protime)PT. 32.6 SECONDS (11.7-14.9)
[2023-02-06 07:53] LABS: International Normalized Ratio 2.5; Prothrombin Time (Protime)PT. 27.4 SECONDS (11.7-14.9)
== END 2023-02-06 18:00 | disposition home or self-care (01) ==
LOC: LAB 07:22
PROVIDERS: PCP Internal Medicine; Referring Provider Nurse Practitioner Family; Visit Provider Nurse Practitioner Family
DX: I48.0 Paroxysmal atrial fibrillation (principal); Z79.01 Long term (current) use of anticoagulants
CPT/HCPCS: 36415; 85610

== ENCOUNTER 2023-03-06 07:23 | Outpatient (RCR) | payer MEDICARE, OTHER, SELFPAY ==
[2023-03-06 08:07] LABS: Prothrombin Time (Protime)PT. 31.2 SECONDS (11.7-14.9)
[2023-03-06 08:11] LABS: AST(SGOT) 22 U/L (15-37); Alanine Aminotransfer ALT/SGPT 28 U/L (16-61); Albumin, Serum 3.3 g/dL (3.2-5.0); Alkaline Phosphatase 86 U/L (45-117); Bilirubin, Direct 0.07 mg/dL (0.00-0.30); Cholesterol 261 mg/dL (200); Globulin 3.5 g/dL (2.2-4.2); High Density Lipoprotein 36 mg/dL; Protein, Total 6.8 g/dL (6.4-8.2); Triglycerides 522 mg/dL
== END 2023-03-06 18:00 | disposition home or self-care (01) ==
LOC: LAB 07:23
PROVIDERS: PCP Internal Medicine; Referring Provider Nurse Practitioner Family; Visit Provider Nurse Practitioner Family
DX: I48.0 Paroxysmal atrial fibrillation (principal); Z79.01 Long term (current) use of anticoagulants
CPT/HCPCS: 36415; 80061; 80076; 85610

== ENCOUNTER 2023-04-03 07:26 | Outpatient (RCR) | payer MEDICARE, OTHER, SELFPAY ==
[2023-03-28 10:54] LABS: Cholesterol 274 mg/dL (200); High Density Lipoprotein 42 mg/dL; Triglycerides 402 mg/dL
[2023-04-03 08:24] LABS: International Normalized Ratio 2.4; Prothrombin Time (Protime)PT. 26.6 SECONDS (11.7-14.9)
== END 2023-04-03 18:00 | disposition home or self-care (01) ==
LOC: LAB 07:26
PROVIDERS: PCP Internal Medicine; Referring Provider Nurse Practitioner Family; Visit Provider Nurse Practitioner Family
DX: I48.0 Paroxysmal atrial fibrillation (principal); Z79.01 Long term (current) use of anticoagulants
CPT/HCPCS: 36415; 80061; 85610

== ENCOUNTER 2023-04-27 09:55 | Outpatient (RCR) | payer MEDICARE, OTHER, SELFPAY ==
[2023-04-27 10:33] LABS: International Normalized Ratio 2.1; Prothrombin Time (Protime)PT. 23.9 SECONDS (11.7-14.9)
== END 2023-04-27 18:00 | disposition home or self-care (01) ==
LOC: LAB 09:55
PROVIDERS: PCP Internal Medicine; Referring Provider Nurse Practitioner Family; Visit Provider Nurse Practitioner Family
DX: I48.0 Paroxysmal atrial fibrillation (principal); Z79.01 Long term (current) use of anticoagulants
CPT/HCPCS: 36415; 85610

== ENCOUNTER 2023-05-29 07:28 | Outpatient (RCR) | payer MEDICARE, OTHER, SELFPAY ==
[2023-05-29 08:41] LABS: International Normalized Ratio 2.7
== END 2023-06-08 18:00 | disposition home or self-care (01) ==
LOC: LAB 07:28
PROVIDERS: PCP Internal Medicine; Referring Provider Nurse Practitioner Family; Visit Provider Nurse Practitioner Family
DX: I48.0 Paroxysmal atrial fibrillation (principal); Z79.01 Long term (current) use of anticoagulants
CPT/HCPCS: 36415; 85610

== ENCOUNTER 2023-08-07 07:16 | Outpatient (RCR) | payer MEDICARE, OTHER, SELFPAY ==
[2023-07-17 07:59] LABS: International Normalized Ratio 2.3; Prothrombin Time (Protime)PT. 25.8 SECONDS (11.7-14.9)
[2023-07-17 08:27] LABS: AST(SGOT) 26 U/L (15-37); Alanine Aminotransfer ALT/SGPT 30 U/L (16-61); Albumin, Serum 3.3 g/dL (3.2-5.0); Alkaline Phosphatase 90 U/L (45-117); Bilirubin, Direct 0.11 mg/dL (0.00-0.30); Cholesterol 257 mg/dL (200); Globulin 3.6 g/dL (2.2-4.2); High Density Lipoprotein 35 mg/dL; Protein, Total 6.9 g/dL (6.4-8.2); Triglycerides 428 mg/dL
[2023-07-31 09:10] LABS: International Normalized Ratio 1.7; Prothrombin Time (Protime)PT. 19.7 SECONDS (11.7-14.9)
[2023-08-07 08:51] LABS: International Normalized Ratio 1.4; Prothrombin Time (Protime)PT. 17.3 SECONDS (11.7-14.9)
== END 2023-08-07 18:00 | disposition home or self-care (01) ==
LOC: LAB 07:16
PROVIDERS: PCP Internal Medicine; Referring Provider Nurse Practitioner Family; Visit Provider Nurse Practitioner Family
DX: I48.0 Paroxysmal atrial fibrillation (principal); Z79.01 Long term (current) use of anticoagulants; E78.2 Mixed hyperlipidemia
CPT/HCPCS: 36415; 80061; 80076; 85610

== ENCOUNTER 2023-09-04 07:23 | Outpatient (RCR) | payer MEDICARE, OTHER, SELFPAY ==
[2023-08-18 08:04] LABS: International Normalized Ratio 1.5; Prothrombin Time (Protime)PT. 18.1 SECONDS (11.7-14.9)
[2023-08-28 09:52] LABS: International Normalized Ratio 2.8
[2023-09-04 08:55] LABS: International Normalized Ratio 1.8; Prothrombin Time (Protime)PT. 21.1 SECONDS (11.7-14.9)
== END 2023-09-07 18:00 | disposition home or self-care (01) ==
LOC: LAB 07:23
PROVIDERS: PCP Internal Medicine; Referring Provider Nurse Practitioner Family; Visit Provider Nurse Practitioner Family
DX: I48.0 Paroxysmal atrial fibrillation (principal); Z79.01 Long term (current) use of anticoagulants
CPT/HCPCS: 36415; 85610

== ENCOUNTER → 2023-09-25 | Outpatient (CLI) | payer MEDICARE, OTHER, SELFPAY ==
[2023-09-25 13:30] LABS: ALB/GLOB Ratio 1.2 RATIO (0.9-2.4); AST(SGOT) 19 U/L (15-37); Alanine Aminotransfer ALT/SGPT 27 U/L (16-61); Albumin, Serum 3.6 g/dL (3.2-5.0); Alkaline Phosphatase 84 U/L (45-117); Anion Gap 6 (5-15); BUN 23 mg/dL (7-18); BUN/Creat Ratio 16.8 RATIO (10-20); Calcium,Total 8.9 mg/dL (8.5-10.1); Chloride 108 mmol/L (98-107); Creatinine, Serum 1.37 mg/dL (0.70-1.30); EST Glomerular Filtration Rate 53 mL/min (>60); Est Glom Filt Rate - Afr Amer 64 mL/min (>60); Glucose 110 mg/dL (74-106); Potassium 4.4 mmol/L (3.5-5.1); Protein, Total 6.6 g/dL (6.4-8.2); Sodium Level 142 mmol/L (136-145)
== END | disposition home or self-care (01) ==
LOC: BIMLAB 08:49
PROVIDERS: PCP Internal Medicine; Referring Provider Internal Medicine; Visit Provider Internal Medicine
DX: K21.9 Gastro-esophageal reflux disease without esophagitis (principal); I48.0 Paroxysmal atrial fibrillation
CPT/HCPCS: 36415; 80053

== ENCOUNTER → 2023-09-26 | Outpatient (CLI) | payer MEDICARE, OTHER, SELFPAY ==
--- NOTE | 2023-09-26 09:15 | RAD_ITS ---
STUDY: X-RAY - ESOPHAGUS (BARIUM SWALLOW) WITH FLUOROSCOPY REASON FOR EXAM: Male, 78 years old. Dysphagia. TECHNIQUE: 15 view(s) of the esophagus were obtained following swallowing of barium. FLUOROSCOPY TIME (if supplied): (30 seconds) minutes/seconds COMPARISON: Comparison is made with prior study dated January 26, 2022. FINDINGS: There is no demonstrated esophageal foreign body. There is no demonstrated stricture or mucosal abnormality. Prominence of the cricopharyngeus muscle. Normal gastroesophageal junction, without a demonstrated hiatal hernia. The patient ingested a 12 mm tablet of barium without any difficulty. Normal visualized aortic arch and descending thoracic aorta. Normal visualized pulmonary parenchyma. Normal visualized osseous structures of the thorax. RAD/Esophagus Single Contrast IMPRESSION: Normal plain film x-ray examination (barium swallow) of the esophagus. Prominence of the cricopharyngeus muscle. Electronically Signed: Ever Ann MD at 9:41 EDT ,
== END | disposition home or self-care (01) ==
LOC: RAD 09:06
PROVIDERS: PCP Internal Medicine; Referring Provider Internal Medicine; Visit Provider Internal Medicine
DX: R13.10 Dysphagia, unspecified (principal)
CPT/HCPCS: 74220

== ENCOUNTER 2023-10-02 07:14 | Outpatient (RCR) | payer MEDICARE, OTHER, SELFPAY ==
[2023-09-18 09:12] LABS: International Normalized Ratio 2.4; Prothrombin Time (Protime)PT. 25.9 SECONDS (11.7-14.9)
[2023-10-02 08:42] LABS: Prothrombin Time (Protime)PT. 31.2 SECONDS (11.7-14.9)
== END 2023-10-08 01:15 | disposition home or self-care (01) ==
LOC: LAB 07:14
PROVIDERS: PCP Internal Medicine; Referring Provider Nurse Practitioner Family; Visit Provider Nurse Practitioner Family
DX: I48.0 Paroxysmal atrial fibrillation (principal); Z79.01 Long term (current) use of anticoagulants
CPT/HCPCS: 36415; 85610

== ENCOUNTER 2023-11-06 07:22 | Outpatient (RCR) | payer MEDICARE, OTHER, SELFPAY ==
[2023-10-24 08:32] LABS: International Normalized Ratio 1.8; Prothrombin Time (Protime)PT. 20.9 SECONDS (11.7-14.9)
[2023-10-24 09:06] LABS: AST(SGOT) 22 U/L (15-37); Alanine Aminotransfer ALT/SGPT 32 U/L (16-61); Albumin, Serum 3.5 g/dL (3.2-5.0); Alkaline Phosphatase 81 U/L (45-117); Bilirubin, Direct 0.11 mg/dL (0.00-0.30); Cholesterol 276 mg/dL (200); Globulin 3.3 g/dL (2.2-4.2); High Density Lipoprotein 43 mg/dL; Protein, Total 6.8 g/dL (6.4-8.2); Triglycerides 319 mg/dL; Very Low Density Lipoprotein 64 mg/dL (5-40)
[2023-11-06 08:19] LABS: Prothrombin Time (Protime)PT. 30.7 SECONDS (11.7-14.9)
== END 2023-11-07 23:51 | disposition home or self-care (01) ==
LOC: LAB 07:22
PROVIDERS: PCP Internal Medicine; Referring Provider Nurse Practitioner Family; Visit Provider Nurse Practitioner Family
DX: I48.0 Paroxysmal atrial fibrillation (principal); Z79.01 Long term (current) use of anticoagulants; E78.2 Mixed hyperlipidemia
CPT/HCPCS: 36415; 80061; 80076; 85610

== ENCOUNTER 2023-11-20 07:25 | Outpatient (RCR) | payer MEDICARE, OTHER, SELFPAY ==
[2023-11-20 08:41] LABS: International Normalized Ratio 2.4
== END 2023-11-20 18:00 | disposition home or self-care (01) ==
LOC: LAB 07:25
PROVIDERS: PCP Internal Medicine; Referring Provider Nurse Practitioner Family; Visit Provider Nurse Practitioner Family
DX: I48.0 Paroxysmal atrial fibrillation (principal); Z79.01 Long term (current) use of anticoagulants
CPT/HCPCS: 36415; 85610

== ENCOUNTER 2023-12-25 07:05 | Outpatient (RCR) | payer MEDICARE, OTHER, SELFPAY ==
[2023-12-11 09:56] LABS: International Normalized Ratio 1.6; Prothrombin Time (Protime)PT. 19.2 SECONDS (11.7-14.9)
[2023-12-18 08:52] LABS: International Normalized Ratio 2.2; Prothrombin Time (Protime)PT. 24.1 SECONDS (11.7-14.9)
[2023-12-25 08:27] LABS: International Normalized Ratio 2.5; Prothrombin Time (Protime)PT. 26.7 SECONDS (11.7-14.9)
== END 2023-12-25 18:00 | disposition home or self-care (01) ==
LOC: LAB 07:05
PROVIDERS: PCP Internal Medicine; Referring Provider Nurse Practitioner Family; Visit Provider Nurse Practitioner Family
DX: I48.0 Paroxysmal atrial fibrillation (principal); Z79.01 Long term (current) use of anticoagulants
CPT/HCPCS: 36415; 85610

== ENCOUNTER 2024-01-29 06:55 | Outpatient (RCR) | payer MEDICARE, OTHER, SELFPAY ==
[2024-01-08 08:35] LABS: International Normalized Ratio 3.7; Prothrombin Time (Protime)PT. 36.3 SECONDS (11.7-14.9)
[2024-01-15 09:27] LABS: Prothrombin Time (Protime)PT. 31.2 SECONDS (11.7-14.9)
[2024-01-29 07:24] LABS: International Normalized Ratio 3.1; Prothrombin Time (Protime)PT. 32.1 SECONDS (11.7-14.9)
== END 2024-02-07 18:00 | disposition home or self-care (01) ==
LOC: LAB 06:55
PROVIDERS: PCP Internal Medicine; Referring Provider Nurse Practitioner Family; Visit Provider Nurse Practitioner Family
DX: I48.0 Paroxysmal atrial fibrillation (principal); Z79.01 Long term (current) use of anticoagulants
CPT/HCPCS: 36415; 85610

== ENCOUNTER 2024-02-26 06:56 | Outpatient (RCR) | payer MEDICARE, OTHER, SELFPAY ==
[2024-02-12 08:55] LABS: International Normalized Ratio 1.8; Prothrombin Time (Protime)PT. 20.9 SECONDS (11.7-14.9)
[2024-02-26 08:11] LABS: International Normalized Ratio 2.7; Prothrombin Time (Protime)PT. 28.1 SECONDS (11.7-14.9)
== END 2024-02-26 18:00 | disposition home or self-care (01) ==
LOC: LAB 06:56
PROVIDERS: PCP Internal Medicine; Referring Provider Nurse Practitioner Family; Visit Provider Nurse Practitioner Family
DX: I48.0 Paroxysmal atrial fibrillation (principal); Z79.01 Long term (current) use of anticoagulants
CPT/HCPCS: 36415; 85610

== ENCOUNTER 2024-03-18 07:07 | Outpatient (RCR) | payer MEDICARE, OTHER, SELFPAY ==
[2024-03-12 08:48] LABS: International Normalized Ratio 3.9; Prothrombin Time (Protime)PT. 37.6 SECONDS (11.7-14.9)
[2024-03-18 08:35] LABS: International Normalized Ratio 2.8
== END 2024-03-18 18:00 | disposition home or self-care (01) ==
LOC: LAB 07:07
PROVIDERS: PCP Internal Medicine; Referring Provider Nurse Practitioner Family; Visit Provider Nurse Practitioner Family
DX: I48.0 Paroxysmal atrial fibrillation (principal); Z79.01 Long term (current) use of anticoagulants
CPT/HCPCS: 36415; 85610

== ENCOUNTER 2024-04-29 07:11 | Outpatient (RCR) | payer MEDICARE, OTHER, SELFPAY ==
[2024-04-15 08:30] LABS: International Normalized Ratio 1.9; Prothrombin Time (Protime)PT. 21.6 SECONDS (11.7-14.9)
[2024-04-29 08:26] LABS: International Normalized Ratio 1.8; Prothrombin Time (Protime)PT. 20.3 SECONDS (11.7-14.9)
== END 2024-04-29 18:00 | disposition home or self-care (01) ==
LOC: LAB 07:11
PROVIDERS: PCP Internal Medicine; Referring Provider Nurse Practitioner Family; Visit Provider Nurse Practitioner Family
DX: I48.0 Paroxysmal atrial fibrillation (principal); Z79.01 Long term (current) use of anticoagulants
CPT/HCPCS: 36415; 85610

== ENCOUNTER → 2024-05-10 | Outpatient (CLI) | payer MEDICARE, OTHER, SELFPAY ==
--- NOTE | 2024-05-10 15:44 | STRESSREP ---
Stress Test Report Exercise myocardial perfusion stress test. 79-year-old man with a history of antiarrhythmic therapy Stress protocol: Resting EKG demonstrates sinus bradycardia with a first-degree AV block and a rate of 54 bpm resting blood pressure is 124/68 mmHg. The patient exercised according to the regular [employer] protocol for a total duration of 9 minutes attaining a maximum heart rate of 126 bpm which was 90% of maximum predicted heart rate; the maximum workload was 10.1 metabolic equivalents. At rest there were no ST or T wave changes noted to suggest ischemia and at peak exercise upsloping ST changes only were noted which did not meet the criteria for ischemia. No clinical angina was noted the test was terminated due to the target heart rate being achieved/fatigue. The peak blood pressure was 170/70 mmHg. Rate-pressure product was 20,000. Myocardial perfusion protocol. 10.8 mCi of technetium 99m sestamibi was injected at rest. The patient exercised according to regular [employer] protocol for total duration of 9 minutes and at peak exercise 31.9 mCi of technetium 99m sestamibi was injected stress images were obtained stress and rest images were reconstructed in comparing the short axis vertical long and horizontal long axis. Gated images were also obtained. Perfusion SPECT analysis: Review of the stress images demonstrate normal uptake of tracer noted in all areas of the myocardium. The resting images similarly demonstrate normal uptake of tracer noted in all areas of the myocardium. No areas of reversibility are noted to suggest ischemia no previous infarct was noted. Gated SPECT analysis: The gated ejection fraction is 69%. Conclusion: Normal exercise myocardial perfusion stress test at a high workload Preserved ejection fraction.
== END | disposition home or self-care (01) ==
LOC: CVS 06:03
PROVIDERS: PCP Internal Medicine; Referring Provider Nurse Practitioner Family; Visit Provider Nurse Practitioner Family
DX: R94.31 Abnormal electrocardiogram [ECG] [EKG] (principal); I48.0 Paroxysmal atrial fibrillation; I47.10 Supraventricular tachycardia, unspecified; Z51.81 Encounter for therapeutic drug level monitoring; Z79.899 Other long term (current) drug therapy
CPT/HCPCS: 78452; 93017; A9500; A4216

== ENCOUNTER 2024-06-04 06:54 | Outpatient (RCR) | payer MEDICARE, OTHER, SELFPAY ==
[2024-05-13 08:57] LABS: International Normalized Ratio 1.6; Prothrombin Time (Protime)PT. 19.4 SECONDS (11.7-14.9)
[2024-05-20 07:47] LABS: International Normalized Ratio 2.4; Prothrombin Time (Protime)PT. 26.3 SECONDS (11.7-14.9)
[2024-06-04 08:12] LABS: International Normalized Ratio 2.6; Prothrombin Time (Protime)PT. 27.7 SECONDS (11.7-14.9)
== END 2024-06-08 18:00 | disposition home or self-care (01) ==
LOC: LAB 06:54
PROVIDERS: PCP Internal Medicine; Referring Provider Nurse Practitioner Family; Visit Provider Nurse Practitioner Family
DX: I48.0 Paroxysmal atrial fibrillation (principal); Z79.01 Long term (current) use of anticoagulants

== ENCOUNTER 2024-06-24 06:49 | Outpatient (RCR) | payer MEDICARE, OTHER, SELFPAY ==
[2024-06-17 07:38] LABS: International Normalized Ratio 3.7; Prothrombin Time (Protime)PT. 36.6 SECONDS (11.7-14.9)
[2024-06-24 07:46] LABS: International Normalized Ratio 2.7; Prothrombin Time (Protime)PT. 28.3 SECONDS (11.7-14.9)
== END 2024-06-24 18:00 | disposition home or self-care (01) ==
LOC: LAB 06:49
PROVIDERS: PCP Internal Medicine; Referring Provider Nurse Practitioner Family; Visit Provider Nurse Practitioner Family
DX: I48.0 Paroxysmal atrial fibrillation (principal); Z79.01 Long term (current) use of anticoagulants

== ENCOUNTER 2024-07-16 06:48 | Outpatient (RCR) | payer MEDICARE, OTHER, SELFPAY ==
[2024-07-16 09:15] LABS: International Normalized Ratio 1.6; Prothrombin Time (Protime)PT. 19.6 SECONDS (11.7-14.9)
== END 2024-07-16 18:00 | disposition home or self-care (01) ==
LOC: LAB 06:48
PROVIDERS: PCP Internal Medicine; Referring Provider Nurse Practitioner Family; Visit Provider Nurse Practitioner Family
DX: I48.0 Paroxysmal atrial fibrillation (principal); Z79.01 Long term (current) use of anticoagulants
CPT/HCPCS: 36415; 85610

== ENCOUNTER → 2024-09-25 | Outpatient (CLI) | payer MEDICARE, OTHER, SELFPAY ==
[2024-09-25 12:26] LABS: Absolute Lymphocyte Count 0.98 X10^3/uL (0.83-4.51); Absolute Neutrophil Count 2.8 X10^3/uL (2.0-7.7); Basophil# 0.07 X10^3/uL; Basophil% 1.4 % (0-1); Eosinophil# 0.28 X10^3/uL; Eosinophils% 5.8 % (0-5); Hematocrit 41.6 % (40-54); Hemoglobin 13.9 g/dL (13.0-16.5); Lymphocyte # 0.98 X10^3/ul (0.83-4.51); Lymphocyte % 20.2 % (19-41); Mean Corp Hgb Conc 33.4 g/dL (32-36); Mean Corpuscular Hgb 31.2 pg (27.0-32.0); Mean Corpuscular Volume 93.3 fL (80-94); Mean Platelet Vol. 9.6 fl (6.2-12.0); Monocyte# 0.66 X10^3/uL; Monocyte% 13.6 % (0-10); NRBC Flagged by Analyzer 0 % (0-5); Neutrophil # 2.84 X10^3/uL (2.7-7.7); Neutrophil % 58.6 % (47-70); Platelet Count 178 K/mm3 (150-450); RBC Distribution Width CV 13.2 % (11.6-14.6); RBC Distribution Width SD 44.6 fl (35.1-43.9); Red Blood Count 4.46 M/mm3 (4.6-6.2); White Blood Count 4.9 K/mm3 (4.4-11.0)
[2024-09-25 12:54] LABS: ALB/GLOB Ratio 1.5 RATIO (0.9-2.4); AST(SGOT) 25 U/L (<=37); Alanine Aminotransfer ALT/SGPT 25 U/L (<=46); Alkaline Phosphatase 90 U/L (40-129); Anion Gap 10 (5-15); BUN 18 mg/dL (4-19); BUN/Creat Ratio 14.8 RATIO (10-20); Bilirubin, Direct 0.34 mg/dL (0.00-0.30); Calcium,Total 9.6 mg/dL (7.6-11.0); Carbon Dioxide 25.7 mmol/L (21.0-32.0); Chloride 108 mmol/L (98-108); Cholesterol 222 mg/dL (<=200); Creatinine, Serum 1.24 mg/dL (0.70-1.20); EST Glomerular Filtration Rate 59 (>60); Globulin 2.7 g/dL (2.2-4.2); Glucose 106 mg/dL (70-99); High Density Lipoprotein 46 mg/dL; Low Density Lipoprotein Calc. 138 mg/dL; PSA,Total- Diagnostic 0.49 ng/mL (0.00-4.00); Potassium 4.7 mmol/L (3.3-5.1); Protein, Total 6.7 g/dL (5.9-8.4); Sodium Level 144 mmol/L (133-145); Total Bilirubin 0.98 mg/dL (0.00-1.30); Triglycerides 190 mg/dL; Very Low Density Lipoprotein 38 mg/dL (5-40); cholesterol:hdl ratio screen 4.85
== END | disposition home or self-care (01) ==
LOC: BIMLAB 09:11
PROVIDERS: PCP Internal Medicine; Referring Provider Internal Medicine; Visit Provider Internal Medicine
DX: E78.2 Mixed hyperlipidemia (principal); K21.9 Gastro-esophageal reflux disease without esophagitis; Z85.46 Personal history of malignant neoplasm of prostate
CPT/HCPCS: 36415; 80053; 80061; 82248; 84153; 85025

== ENCOUNTER → 2025-03-26 | Outpatient (CLI) | payer MEDICARE, OTHER, SELFPAY ==
--- NOTE | 2025-03-26 08:10 | RAD_ITS ---
PROCEDURE: ESOPHAGUS DUAL CONTRAST 03/26/2025 REASON FOR EXAM: DYSPHONIA TECHNIQUE: ESOPHAGUS DUAL CONTRAST FLUOROSCOPIC TIME: 32 seconds. FLUOROGRAPHIC IMAGES: 46 Radiation dose: 5.4 mGy COMPARISON: None FINDINGS: The patient ingested barium. Multiple fluoroscopic images were obtained. No evidence of esophageal obstruction. No mass lesion is seen. There is no evidence of gastroesophageal reflux. The patient ingested a 12 mm tablet the barium. The tablet passed through the gastroesophageal junction without any problem. RAD/Esophagus Dual Contrast IMPRESSION: Unremarkable air-contrast esophagram barium swallow. Reading Location: [facility]
== END | disposition home or self-care (01) ==
LOC: RAD 08:06
PROVIDERS: PCP Internal Medicine; Referring Provider Otolaryngology; Visit Provider Otolaryngology
DX: R49.0 Dysphonia (principal)
CPT/HCPCS: 74221

== ENCOUNTER → 2025-04-15 | Outpatient (CLI) | payer MEDICARE, OTHER, SELFPAY ==
[2025-04-15 10:39] LABS: PSA,Total- Diagnostic 0.33 ng/mL (0.00-4.00)
== END | disposition home or self-care (01) ==
PROVIDERS: PCP Internal Medicine; Referring Provider Urology; Visit Provider Urology
DX: C61 Malignant neoplasm of prostate (principal)
CPT/HCPCS: 36415; 84153

== ENCOUNTER → 2025-06-25 | Outpatient (CLI) | payer MEDICARE, OTHER, SELFPAY ==
--- NOTE | 2025-06-25 13:53 | ECHOD_ITS ---
Reason For Study Reason For Study: ATRIAL FIB-FLUTTER Procedure This was a 2D Doppler, Color Flow transthoracic echocardiogram. Exam performed in department. Left Ventricle Normal LV size. Left ventricular systolic function is normal. The left ventricular ejection fraction is 70 %. Stage 1 diastolic dysfunction. No regional wall motion abnormalities noted. Right Ventricle Normal RV size. Normal systolic function. Atria Normal left atrium. Normal right atrium. Mitral Valve Normal mitral valve. Tricuspid Valve Normal tricuspid valve. Mild (1+) tricuspid valve insufficiency. Pulmonary artery systolic pressure is 25 mmHg. Aortic Valve Normal aortic valve. Trisinus/trileaflet aortic valve. Pulmonic Valve Normal pulmonic valve. Great Vessels Normal aortic root. The pulmonary artery is normal size. Normal inferior vena cava. Pericardium/Pleural No pericardial effusion. MMode/2D Measurements & Calculations LVIDd: 4.5 cm IVSd: 0.68 cm Ao root diam: 3.7 cm LVIDs: 3.2 cm LVPWd: 0.75 cm RVDd: 3.7 cm FS: 30.2 % LAV(MOD-bp): 37.8 ml LVAd ap4: 27.9 cm2 LVAd ap2: 24.5 cm2 LAV(MOD-bp) Indexed: 18.1 ml/m2 LVLd ap4: 8.2 cm LVLd ap2: 8.0 cm LAV(MOD-sp2): 39.2 ml EDV(MOD-sp4): 80.1 ml EDV(MOD-sp2): 61.8 ml LAV(MOD-sp4): 32.5 ml EDV(sp4-el): 80.6 ml EDV(sp2-el): 63.9 ml LVAs ap4: 13.9 cm2 LVAs ap2: 12.1 cm2 LVLs ap4: 6.9 cm LVLs ap2: 6.6 cm ESV(MOD-sp4): 25.3 ml ESV(MOD-sp2): 19.0 ml ESV(sp4-el): 23.8 ml ESV(sp2-el): 18.8 ml EF(MOD-sp4): 68.4 % EF(MOD-sp2): 69.3 % EF(sp4-el): 70.5 % SV(MOD-sp4): 54.8 ml SV(MOD-sp2): 42.8 ml EDV(MOD-bp): 71.3 ml SI(MOD-sp4): 26.3 ml/m2 SI(MOD-sp2): 20.5 ml/m2 ESV(MOD-bp): 22.1 ml EF(MOD-bp): 69.0 % SV(sp4-el): 56.8 ml LA dimension(2D): 3.5 cm LA A4 area: 15.3 cm2 RA A4 area: 14.1 cm2 TAPSE: 1.5 cm Time Measurements MV dec time: 0.33 sec Doppler Measurements & Calculations MV E max alfred: 55.0 cm/sec Lat Peak E' Alfred: 9.0 cm/sec Med Peak E' Alfred: 6.7 cm/sec MV A max alfred: 75.2 cm/sec E/E' lat: 6.1 E/E' med: 8.2 MV E/A: 0.73 Ao V2 max: 92.0 cm/sec LV V1 max: 75.7 cm/sec MV dec slope: 165.0 cm/sec2 Ao max P.4 mmHg LV V1 max P.3 mmHg Ao V2 mean: 66.8 cm/sec LV V1 mean P.3 mmHg Ao mean P.0 mmHg LV V1 mean: 54.8 cm/sec Ao V2 VTI: 23.6 cm LV V1 VTI: 17.5 cm AV (velocity ratio): 0.74 PA V2 max: 67.9 cm/sec TR max alfred: 235.5 cm/sec TR max P.2 mmHg ECHO/Echo Complete Interpretation Summary Normal LV size. Left ventricular systolic function is normal. The left ventricular ejection fraction is 70 %. Stage 1 diastolic dysfunction. Structurally normal valves. Ordering Physician: Anuj Velasquez Referring Physician: Negra Meneses Performed By: Rajeev Bañuelos RDCS
--- OUTSIDE RECORDS SUMMARY | 2025-06-25 20:21 | XMS RPT_ITS | CCD ---
Author Organization [facility] Care Team Providers Care Field Irrigation Worker Name Role Phone Dr. Vega Ochoa Primary Care Provider Dr. Vega Ochoa Referring Provider 1([facility])[phone] Roof CASINO SHIFT MANAGER, CASINO SHIFT MANAGER-Kaya Parker Attending Provider Dr. Vega Ochoa Primary Care Provider Dr. Vega Ochoa Referring Provider 1([facility])[phone] Negra Meneses Attending Provider 1([facility]) Dr. Negra Meneses Primary Care Provider Dr. Negra Meneses Referring Provider [phone]) DAVIN Taylor Attending Provider Dr. Negra Meneses Primary Care Provider Dr. Negra Meneses Referring Provider 1(330) Dr. Anuj Velasquez Attending Provider 1([facility])- DAVIN Taylor Attending Provider Dr. Negra Meneses Primary Care Provider Dr. Negra Meneses Referring Provider 1(330) DAVIN Kearns Attending Provider Dr. Negra Meneses Attending Provider 1(330) DAVIN Castro Attending Provider 1(330) Dr. Anuj Velasquez Attending Provider 1([facility])-57 Dr. Negra Meneses Primary Care Provider Dr. Negra Meneses Referring Provider 1([facility]) DAVIN Kearns Attending Provider Dr. Negra Meneses Attending Provider 1(330) DAVIN Castro Attending Provider 1(330) Dr. Anuj Velasquez Attending Provider [phone] Vega Ochoa Referring Provider Unavailable Gabriela PICKERING, Vega Sam Primary Care Provider Dr. Negra Meneses Primary Care Provider Dr. Negra Meneses Referring Provider [phone] DAVIN Kearns Attending Provider Gabriela PICKERING, Vega Sam Primary Care Provider [phone] Gideon PICKERING, Dr. Omer Primary Care Provider [phone] Roof CASINO SHIFT MANAGER-C, Bea H Attending Provider [phone] Roof CASINO SHIFT MANAGER-C, Bea H Referring Provider [phone] Dr. Anuj Velasquez MD Other Provider Dr. Negra Meneses MD Attending Provider Dr. Negra Meneses MD Referring Provider VIJAY ALVAREZ Attending Unavailable VEGA OCHOA Primary Care Unavailable SUKHDEV TILLMAN Attending Unavailable VEGA OCHOA Primary Care Unavailable SUKHDEV TILLMAN Referring Unavailable VEGA OCHOA Primary Care Unavailable SUKHDEV TILLMAN Referring Unavailable Dr. Negra Meneses MD Primary Care Provider [phone] Dr. Negra Meneses MD Referring Provider Garret Kearns Attending Provider Dr. Negra Meneses MD Primary Care Physician Garret Kearns Attending Physician Ronald PICKERING, Dr. Beauchamp Attending Physician Dr. Nito Cardenas MD Referring Provider Roof CASINO SHIFT MANAGER, Bea H Consulting Unavailable Roof CASINO SHIFT MANAGER, Bea H Referring Unavailable [place], Negra Primary Care Unavailable Eva, Anuj Attending Unavailable [place], Negra Referring Unavailable Gideon, Negra Attending Unavailable Gideon, Negra Primary Care Unavailable Gideon, Negra Referring Unavailable [place], Negra Attending Unavailable [place], Negra Primary Care Unavailable ShantanuGalindoBrendan Referring Unavailable Shantanu, Brendan Attending Unavailable [place], Negra Primary Care Unavailable [place], Negra Referring Unavailable Gideon, Negra Attending Unavailable [place], Negra Primary Care Unavailable Roof CASINO SHIFT MANAGER, Bea H Attending Unavailable Roof CASINO SHIFT MANAGER, Bea H Referring Unavailable Gideon, Negra Primary Care Unavailable Eva, Anuj Consulting Unavailable Roof CASINO SHIFT MANAGER, Bea H Referring Unavailable Roof CASINO SHIFT MANAGER, Bea H Attending Unavailable [place], Negra Primary Care Unavailable Roof CASINO SHIFT MANAGER, Bea H Attending Unavailable Roof CASINO SHIFT MANAGER, Bea H Referring Unavailable [place], Negra Primary Care Unavailable Eva, Anuj Consulting Unavailable Roof CASINO SHIFT MANAGER, Bea H Attending Unavailable Roof CASINO SHIFT MANAGER, Bea H Referring Unavailable Gideon, Negra Primary Care Unavailable Eva, Sheridan Consulting Unavailable Roof CASINO SHIFT MANAGER, Bea H Attending Unavailable Roof CASINO SHIFT MANAGER, Bea H Referring Unavailable [place], Negra Primary Care Unavailable Eva, Anuj Consulting Unavailable Gideon, Negra Referring Unavailable Gideon, Negra Attending Unavailable [place], Negra Primary Care Unavailable Nito Cardenas Referring Unavailabl e Nito Cardenas Attending Unavailabl e Gideon, Negra Primary Care Unavailable [place], Negra Referring Unavailable Garret Kearns Attending Unavailable [place], Negra Primary Care Unavailable Medications Current Medications Medication Drug Class(es) Dates Sig (Normalized) Sig (Original) multivit-minerals/ferrou s fum (MULTI VITAMIN ORAL) (10 sources) multivit-mineral s/moraima us fum (MULTI VITAMIN ORAL) Take by mouth. Active multivit-mineral s/ferrous fum (MULTI VITAMIN ORAL) Take by mouth. 0 Active Comment on above: Take by mouth. Multivitamin preparation (20 sources) Start: 09-22-2022 take 1 tablet by mouth once daily Multivitamin Active 1 TABLET PO DAILY September 21, 2022 11:00pm Start: 09-22-2022 take 1 tablet by reuben th once daily Multivitamin Active 1 TABLET PO DAILY September 22, 2022 12:00am Start: 04-09-2019 End: 04-15-2019 take 1 tablet by mouth once daily Multivitamin Discontinued 1 TABLET PO DAILY April 08, 2019 11:00pm April 15, 2019 10:01am Start: 04-09-2019 End: 04-15-2019 take 1 tablet by mouth once daily Multivitamin Discontinued 1 TABLET PO DAILY April 09, 2019 12:00am April 15, 2019 11:01am Multivitamin tablet (6 sources) Start: 09-22-2022 Start: 09-22-2022 Multivitamin t ablet Active 1 {tbl} PO DAILY September 22, 2022 12:00am Start: 04-09-2019 End: 04-15-2019 Multivitamin tablet Disconti nued 1 {tbl} PO DAILY April 09, 2019 12:00am April 15, 2019 11:01am omeprazole 40 mg delayed release oral capsule (20 sources) Proton Pump Inhibitor Start: 09-25-2024 End: 03-17-2025 take 1 capsule by mouth once daily Start: 11-28-2023 End: 12-29-2023 take 1 capsule by mouth once daily Omeprazole 40 mg capsule,delayed release(DR/EC) Active 40 mg PO DAILY 90 September 25, 2024 8:59am Start: 10-20-2009 End: 09-25-2024 take 1 capsule by mouth once daily Omeprazole 20 mg capsule,delayed release(DR/EC) Discontinued 20 mg PO DAILY 90 November 30, 2023 7:51am September 25, 2024 10:08am Comment on above: Take one(1) tablet d aily on empty stomach triamcinolone acetonide 0.00 5 mg/mg topical ointment (2 sources) Corticosteroid Start: 02-24-2025 Completed/Discontinued Medications Medication Drug Class(es) Dates Sig (Normalized) Sig (Original) amoxicillin 500 mg oral capsule (8 sources) Penicillin-class Antibacterial Start: 06-19-2023 End: 07-03-2023 take 1 capsule by mouth three times daily Amoxicillin 500 mg capsule Discontinued 500 mg PO THREE TIMES A DAY 42 14 0 June 19, 2023 1:00am July 02, 2023 1:00July 03, 2023 1:04am amoxicillin 875 mg / clavulanate 125 mg oral tablet (12 sources) Penicillin-class Antibacterial Start: 01-26-2023 End: 02-05-2023 Amoxicillin-Pot Clavulanate 875-125 mg tablet Discontinued 1 {tbl} PO Q12H 20 10 0 January 26, 2023 12:00am February 04, 2023 12:00am February 05, 2023 12:03am Acute sinusitis, unspecified Start: 01-26-2023 End: 02-05-2023 take 1 tablet by mouth every twelve hours Amoxicillin-Pot Clavulanate Discontinued 1 TABLET PO Q12H 20 January 26, 2023 12:00am February 05, 2023 12:03am apixaban 5 mg oral tablet (20 sources) Factor Xa Inhibitor Start: 02-25-2020 End: 10-27-2023 take 1 tablet by mouth twice daily Apixaban 5 mg tablet Discontinued 5 mg PO TWICE A DAY 180 4 February 28, 2022 5:34pm September 15, 2022 3:33pm Comment on above: Take 1 tablet by mouth twice daily. aspirin 81 mg delayed release oral tablet (20 sources) Platelet Aggregation Inhibitor, Nonsteroidal Anti-inflammatory Drug Start: 04-15-2019 End: 08-19-2020 take 1 tablet by mouth every other day Aspirin 81 mg tablet,delayed release (DR/EC) Discontinued 81 mg PO every other day April 15, 2019 11:00am August 19, 2020 2:59pm Start: 09-20-2016 End: 04-15-2019 take 1 tablet by mouth once daily Aspirin 81 MG tablet,delayed release (DR/EC) Discontinued 81 mg PO DAILY September 20, 2016 12:00am April 15, 2019 11:01am Start: 03-07-2011 take 1 tablet by reuben th every other day aspirin 81 mg ORAL chewable tablet Take 1 tablet by mouth every other day. 0 03/07/2011 Active Comment on above: Take 1 tablet by reuben th every other day. azithromycin 250 mg oral tablet (9 sources) Macrolide Antimicrobial Start: 05-26-20 End: 07-26-19 take 2-5 tablets by mouth once daily Azithromycin 250 mg tablet Discontinued 0 PO .COMPLEX 6 0 May 26, 2023 1:00am July 26, 2023 12:40pm take 500 mg today (day 1), then 250 mg for 4 days (days 2-5) PO Benzocaine (1 source) Standardized Chemical Allergen Start: 11-28-19 End: 11-28-19 benzocaine 20% 1 [place] (TOPEX) bicalutamide 50 mg oral tablet (20 sources) Androgen Receptor Inhibitor Start: 04-09-20 End: 04-15-20 take 1 tablet by mouth once daily Bicalutamide 50 mg tablet Discontinued 50 mg PO DAILY April 09, 2019 12:00am April 15, 2019 11:01am Hbbrgnaqmy-Hnpwfwho-A ormoterol (1 source) Corticosteroid, beta2-Adrenergic Agonist Start: 09-01-19 End: 09-25-19 Budesonide-Glycopyr- Formoterol (Breztri Aerosphere) 160-9-4.8 mcg/actuation HFA aerosol inhaler Discontinued 2 NMA INHALATION TWICE A DAY 5.9 0 September 01, 2023 1:00am September 25, 2023 7:59am Kdpubttiss-Ghqepzyv-F ormoterol (Breztri Aerosphere) 160-9-4.8 mcg/actuation HFA aerosol inhaler (7 sources) Start: 09-01-19 End: 09-25-19 Budesonide-Glycopyr- Formoterol (Breztri Aerosphere) 160-9-4.8 mcg/actuation HFA aerosol inhaler Discontinued 2 NMA INHALATION TWICE A DAY 5.9 0 September 01, 2023 1:00am September 25, 2023 7:59am Start: 09-01-2023 End: 09-25-2023 Oynbxazswf-Vymqjrxu-Ontnulep ol (Breztri Aerosphere) 160-9-4.8 mcg/actuation HFA aerosol inhaler Discontinued 2 NMA INHALATION TWICE A DAY 5.9 September 01, 2023 1:00am September 25, 2023 7:59am Start: 09-01-2023 End: 09-25-2023 Ikuvivvwvk-Qrxyzdei-Simozrvs ol (Breztri Aerosphere) 160-9-4.8 mcg/actuation HFA aerosol inhaler Discontinued 2 INH INHALATION TWICE A DAY 5.9 September 01, 2023 1:00am September 25, 2023 7:59am Start: 09-01-2023 Budesonide-Gly copyr-Formoterol (Breztri Aerosphere) 160-9-4.8 mcg/actuation HFA aerosol inhaler Active 2 INH INHALATION TWICE A DAY 5.9 September 01, 2023 12:00am calcium carbonate 1250 mg oral tablet (20 sources) Start: 04-09-2019 End: 04-15-2019 take 1 tablet by mouth twice daily Calcium Carbonate (Calcium 500) 500 mg calcium (1,250 mg) tablet Discontinued 500 mg PO TWICE A DAY April 09, 2019 12:00am April 15, 2019 11:01am calcium chloride 0.0014 meq/ml / potassium chloride 0.004 meq/ml / sodium chloride 0.103 meq/ml / sodium lactate 0.028 meq/ml injectable solution (1 source) Start: 11-28-2023 End: 11-28-2023 lactated ringers iv infusion cefdinir 300 mg oral capsule (20 sources) Cephalosporin Antibacterial Start: 08-19-2021 End: 03-01-2022 take 1 capsule by mouth twice daily Cefdinir 300 mg capsule Discontinued 300 mg PO TWICE A DAY August 19, 2021 1:00am March 01, 2022 9:18am cholecalciferol 0.025 mg oral tablet (20 sources) Vitamin D Start: 04-09-2019 End: 04-15-2019 take 1 tablet by mouth once daily Cholecalciferol (Vitamin D3) 1,000 unit (25 mcg) tablet Discontinued 1000 U PO DAILY April 09, 2019 12:00am April 15, 2019 11:01am codeine phosphate 2 mg/ml / guaiFENesin 20 mg/ml oral solution (18 sources) Opioid Agonist Start: 07-26-2023 End: 09-25-2024 take 1 mL by mouth every eight hours as needed Codeine-Guaifenesin 10-100 mg/5 mL liquid Discontinued 5 mL PO EVERY 8 HOURS NEEDED as needed for cold symptoms 118 0 July 26, 2023 1:00am September 25, 2024 8:08am Chronic sinus complaints Cough Cough, unspecified Start: 07-26-2023 codeine-guaiFE Nesin (ROBITUSSIN AC) 10-100 mg/5 mL syrup EVERY 8 HOURS NEEDED 07/26/2023 Active Comment on above: EVERY 8 HOURS NEE DED dexamethasone 6 mg oral tablet (8 sources) Corticosteroid Start: 08-22-19 End: 08-30-19 take 1 tablet by mouth once daily Dexamethasone 6 mg tablet Discontinued 6 mg PO DAILY 5 0 August 22, 2023 1:00am August 30, 2023 2:29pm 1 ml fentaNYL 0.05 mg/ml injection (1 source) Opioid Agonist Start: 11-28-19 End: 11-28-19 fentaNYL 50 mcg/mL 25-100 mcg injection (SUBLIMAZE) flecainide acetate 100 mg oral tablet (20 sources) Antiarrhythmic Start: 12-04-19 End: 08-14-19 take 1 tablet by mouth every twelve hours Flecainide 100 mg tablet Discontinued 100 mg PO Q12H 180 3 February 05, 2024 9:36am August 14, 2024 4:18pm atrial fibrillation On Hold: Feeling Well Start: 02-12-2020 End: 12-03-2020 Flecainide Discontinued 200 MG PO .COMPLEX 60 February 19, 2020 2:00pm August 19, 2020 3:25pm 200 mg PO at the start of afib if metoprolol ineffective; Start: 09-23-2016 End: 12-03-2020 Flecainide 100 mg tablet Dis continued 200 mg PO .COMPLEX 60 11 February 19, 2020 2:00pm August 19, 2020 3:25pm 200 mg PO at the start of afib if metoprolol ineffective; Comment on above: Take by mouth. Take two tablets if atrial fibrillation persists longer than one hour hydrocortisone 10 mg/ml topical lotion (2 sources) Corticosteroid Start: 10-07-2024 End: 10-21-2024 Hydrocortisone (Anti-Itch (Hc)) 1 % lotion Discontinued 1 NMA TOPICAL TWICE A DAY as needed for itching 120 14 0 October 07, 2024 12:00am October 20, 2024 12:00am October 21, 2024 12:05am 24 hr metoprolol succinate 50 mg extended release oral tablet (20 sources) beta-Adrenergic Ameya Start: 11-14-2022 metoprolol succinate ER (TOPROL XL) 50 mg 24 hr tablet .COMPLEX 11/14/2022 Active Start: 02-12-2020 End: 08-14-2024 take 1 tablet by mouth once daily Metoprolol Succinate 50 mg tablet extended release 24 hr Discontinued 0 .ROUTE .COMPLEX 90 May 06, 2024 7:55am August 14, 2024 4:18pm On Hold: Feeling well TAKE 1 TABLET BY MOUTH EVERY DAY Start: 09-23-2016 End: 08-19-2020 Metoprolol Tartrate 50 mg ta blet Discontinued 50 mg PO .COMPLEX as needed for tachycardia 30 February 19, 2020 1:59pm August 19, 2020 2:59pm 50 mg PO prn at the start of afib PRN; Comment on above: Take 1 tablet by reuben th. At onset of fibrillation .COMPLEX 5 ml midazolam 1 mg/ml injection (1 source) Benzodiazepine Start: 11-28-19 End: 11-28-19 midazolam (PF) 1-5 mg injection (VERSED) montelukast 10 mg oral tablet (20 sources) Leukotriene Receptor Antagonist Start: 09-25-19 End: 04-29-20 take 1 tablet by mouth at bedtime Montelukast 10 mg tablet Discontinued 10 mg PO AT BEDTIME 30 0 October 20, 2023 10:36am April 29, 2024 10:37am Comment on above: AT BEDTIME pravastatin sodium 20 mg oral tablet (8 sources) HMG-CoA Reductase Inhibitor Start: 07-18-19 End: 07-28-19 take 1 tablet by mouth once daily Pravastatin 20 mg tablet Discontinued 20 mg PO DAILY July 18, 2023 1:00am July 28, 2023 4:53pm rosuvastatin calcium 10 mg oral tablet (8 sources) HMG-CoA Reductase Inhibitor Start: 07-17-19 End: 07-18-19 take 1 tablet by mouth once daily Rosuvastatin (Crestor) 10 mg tablet Discontinued 10 mg PO DAILY July 17, 2023 1:00am July 18, 2023 4:47pm tamsulosin hydrochloride 0.4 mg oral capsule (20 sources) alpha-Adrenergic Ameya Start: 04-09-20 End: 04-15-20 take 1 capsule by mouth once daily Tamsulosin 0.4 mg capsule Discontinued 0.4 mg PO DAILY April 09, 2019 12:00am April 15, 2019 11:01am Comment on above: Take 0.4 mg by mouth . Turmeric Root Extract (20 sources) Start: 04-09-20 End: 04-15-20 take 1 capsule by mouth once daily Turmeric Root Extract 500 mg capsule Discontinued 500 mg PO DAILY April 09, 2019 12:00am April 15, 2019 11:01am Start: 04-09-2019 End: 04-15-2019 take 500 mg by mouth once daily Turmeric Root Extract Discontinued 500 MG PO DAILY April 08, 2019 11:00pm April 15, 2019 10:01am Start: 04-09-2019 End: 04-15-2019 take 500 mg by mouth once daily Turmeric Root Extract Discontinued 500 MG PO DAILY April 09, 2019 12:00am April 15, 2019 11:01am vitamin b12 2.5 mg oral tablet (20 sources) Vitamin B12 Start: 04-09-2019 End: 04-15-2019 take 1 tablet by mouth once daily Cyanocobalamin (Vitamin B-12) 2,500 mcg tablet Discontinued 2500 ug PO DAILY April 09, 2019 12:00am April 15, 2019 11:01am vitamin e 180 mg oral capsule (20 sources) Start: 04-09-2019 End: 04-15-2019 Vitamin E (Dl, Acetate) 400 unit capsule Discontinued 400 U PO DAILY April 09, 2019 12:00am April 15, 2019 11:01am warfarin sodium 5 mg oral tablet (20 sources) Vitamin K Antagonist Start: 11-25-2022 End: 08-14-2024 Warfarin 1 mg tablet Discontinued 1 mg PO .COMPLEX Protocol: Adjustment Start Date: Monday06/24/24INR Value: 2.7INR Date: 06/24/24Recheck Date: 09/22/24 Condition: Monday Dose/Route: 2.5 mg Instructions: 0.5 x 5 mg tablets Condition: Monday Dose/Route: 1 mg Instructions: 1 x 1 mg tablet Condition: Monday Dose/Route: 1 mg Instructions: 1 x 1 mg tablet Condition: Monday Dose/Route: 1 mg Instructions: 1 x 1 mg tablet Condition: Dose/Route: 2.5 mg Instructions: 0.5 x 5 mg tablets Condition: Monday Dose/Route: 2.5 mg Instructions: 0.5 x 5 mg tablets Condition: Monday Dose/Route: 2.5 mg Instructions: 0.5 x 5 mg tablets 08 07December 18, 2022 1:24pm August 14, 2024 4:18pm 1 mg orally take 1 tab by mouth on fridays and take 2.5mg the other days of the week or as directed; Please contact the information source for Protocol details. Start: 09-15-2022 End: 08-14-2024 take 1 tablet by mouth once daily Warfarin 5 mg tablet Discontinued 5 mg PO DAILY Protocol: Adjustment Start Date: Monday06/24/24INR Value: 2.7INR Date: 06/24/24Recheck Date: 09/22/24 Condition: Monday Dose/Route: 2.5 mg Instructions: 0.5 x 5 mg tablets Condition: Monday Dose/Route: 1 mg Instructions: 1 x 1 mg tablet Condition: Monday Dose/Route: 1 mg Instructions: 1 x 1 mg tablet Condition: Monday Dose/Route: 1 mg Instructions: 1 x 1 mg tablet Condition: Dose/Route: 2.5 mg Instructions: 0.5 x 5 mg tablets Condition: Monday Dose/Route: 2.5 mg Instructions: 0.5 x 5 mg tablets Condition: Monday Dose/Route: 2.5 mg Instructions: 0.5 x 5 mg tablets 08 06August 07, 2023 9:19am August 14, 2024 4:18pm Please contact the information source for Protocol details. Comment on above: .COMPLEX DAILY Zinc (20 sources) Start: 04-09-2019 End: 04-15-2019 take 1 tablet by mouth once daily Zinc 50 mg tablet Discontinued 50 mg PO DAILY April 09, 2019 12:00am April 15, 2019 11:01am Start: 04-09-2019 End: 04-15-2019 take 50 mg by mouth once daily Zinc Discontinued 50 MG PO DAILY April 08, 2019 11:00pm April 15, 2019 10:01am Start: 04-09-2019 End: 04-15-2019 take 50 mg by mouth once daily Zinc Discontinued 50 MG PO DAILY April 09, 2019 12:00am April 15, 2019 11:01am Problems Active Problems Problem Classification Problem Date Documented Da te Episodic/Chronic Abdominal hernia (20 sources) Hiatal hernia; Translations: [Diaphragmatic hernia without obstruction or gangrene] 02-08-2022 Episodic Administrative/social admission (4 sources) Persons encountering health services in other specified circumstances; Translations: [Other reasons for seeking consultation] 09-22-2022 Episodic Allergic reactions (6 sources) Atopic dermatitis; Translations: [Atopic dermatitis, unspecified] Onset: 5 Chronic Cancer of prostate (1 source) Malignant neoplasm of prostate; Translations: [Malignant neoplasm of prostate] Onset: 5 Chronic Cardiac dysrhythmias (20 sources) Supraventricular tachycardia; Translations: [Supraventricular tachycardia] Onset: 1 Chronic Comment on above: 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 Cardiac dysrhythmias (20 sources) Palpitations; Translations: [Palpitations] Onset: 4 04-10-2019 Episodic Chronic kidney disease (20 sources) Chronic kidney disease stage 3; Translations: [Stage 3 chronic kidney disease] Onset: 4 09-12-2022 Chronic Disorders of lipid metabolism (20 sources) Hyperlipidemia; Translations: [Hyperlipidemia, unspecified] Onset: 2 Chronic Esophageal disorders (20 sources) Gastro-esophageal reflux disease without esophagitis; Translations: [Esophageal reflux] Onset: 1 09-22-2022 Chronic Esophageal disorders (1 source) Esophageal disorders Hyperplasia of prostate (10 sources) Benign prostatic hyperplasia; Translations: [Benign prostatic hyperplasia without lower urinary tract symptoms] Onset: 1 06-16-2011 Chronic Immunizations and screening for infectious disease (4 sources) Encounter for immunization; Translations: [Need for prophylactic vaccination and inoculation against unspecified single disease] 09-25-2023 Episodic Nonspecific chest pain (20 sources) Chest pain; Translations: [Chest pain, unspecified] Onset: 4 02-08-2022 Episodic Other aftercare (20 sources) Patient encounter status; Translations: [Encounter for therapeutic drug level monitoring] Onset: 4 11-23-2020 Episodic Other aftercare (20 sources) Long-term current use of anticoagulant; Translations: [long term care pharmacist (current) use of anticoagulants] Onset: 4 09-15-2022 Episodic Other aftercare (7 sources) Long-term current use of drug therapy; Translations: [Encounter for therapeutic drug level monitoring] Onset: 4 10-26-2023 Episodic Other circulatory disease (10 sources) Other specified symptoms and signs involving the circulatory and respiratory systems; Translations: [Other symptoms involving respiratory system and chest] Onset: 5 07-26-2023 Episodic Other circulatory disease (1 source) Facial sinus finding; Translations: [Other specified symptoms and signs involving the circulatory and respiratory systems] 09-25-2024 Episodic Other circulatory disease (2 sources) Abnormal peripheral pulse; Translations: [Other specified symptoms and signs involving the circulatory and respiratory systems] 01-09-2025 Episodic Other connective tissue disease (4 sources) Disorder of hand; Translations: [Full-term ] 09-25-2023 Episodic Other gastrointestinal disorders (4 sources) Dysphagia, unspecified; Translations: [Dysphagia, unspecified] 09-25-2023 Episodic Other gastrointestinal disorders (3 sources) Dysphagia; Translations: [Dysphagia, unspecified] 10-27-2023 Episodic Other infections; including parasitic (4 sources) Personal history of other infectious and parasitic diseases; Translations: [History of 2019 novel coronavirus disease (COVID-19)] 09-25-2023 Episodic Other inflammatory condition of skin (10 sources) Rosacea; Translations: [Rosacea, unspecified] Onset: 7 01-27-2009 Chronic Other lower respiratory disease (20 sources) Cough; Translations: [Cough] Onset: 4 08-30-2023 Episodic Other male genital disorders (10 sources) Male erectile dysfunction, unspecified; Translations: [Impotence of organic origin] Onset: 0 11-19-2009 Chronic Other skin disorders (4 sources) Unspecified skin changes; Translations: [Other symptoms involving skin and integumentary tissues] 09-22-2022 Episodic Other skin disorders (4 sources) Actinic keratosis; Translations: [Actinic keratosis] 09-22-2022 Episodic Other skin disorders (2 sources) Dystrophia unguium; Translations: [Nail dystrophy] 01-09-2025 Episodic Other skin disorders (1 source) Nail dystrophy; Translations: [Onychodystrophy] Onset: 5 Episodic Other upper respiratory disease (10 sources) Allergic rhinitis; Translations: [Allergic rhinitis, unspecified] Onset: 0 10-20-2009 Chronic Other upper respiratory disease (1 source) Dysphonia; Translations: [Dysphonia] Onset: Episodic Other upper respiratory infections (20 sources) Recurrent sinusitis; Translations: [Chronic sinusitis, unspecified] Onset: 4 06-19-2023 Chronic Otitis media and related conditions (20 sources) Acute right otitis media; Translations: [Otitis media, unspecified, right ear] Onset: 4 01-26-2023 Episodic Residual codes; unclassified (4 sources) Immunization not carried out because of patient refusal; Translations: [Vaccination not carried out because of patient refusal] 09-22-2022 Episodic Unclassified (3 sources) L20.9 - Atopic dermatitis, unspecified Viral infection (20 sources) Disease caused by 2019-nCoV; Translations: [COVID-19] Onset: 9 Resolved: 0 08-30-2023 Episodic Past or Other Problems Problem Classification Problem Date Documented Da te Episodic/Chronic Cancer of prostate (10 sources) Personal history of malignant neoplasm of prostate; Translations: [Personal history of malignant neoplasm of prostate] Onset: 09-25-2024 09-22-2022 Episodic Esophageal disorders (2 sources) Esophagitis; Translations: [Esophagitis] Onset: 10-09-2024 10-12-2024 Episodic Gastrointestinal hemorrhage (10 sources) Rectal hemorrhage; Translations: [Hemorrhage of anus and rectum] Onset: 10-20-2009 10-20-2009 Episodic Genitourinary symptoms and ill-defined conditions (10 sources) Increased frequency of urination; Translations: [Frequency of micturition] Onset: 06-07-2011 06-07-2011 Episodic Inflammatory conditions of male genital organs (10 sources) Prostatitis; Translations: [Inflammatory disease of prostate, unspecified] Onset: 06-07-2011 06-07-2011 Episodic Malaise and fatigue (10 sources) Malaise and fatigue; Translations: [Other malaise] Onset: 09-06-2006 01-27-2009 Episodic Other aftercare (1 source) Encounter for follow-up examination after completed treatment for conditions other than malignant neoplasm; Translations: [Encounter for follow-up examination after completed treatment for conditions other than malignant neoplasm] Onset: 10-09-2024 Episodic Other aftercare (1 source) prison (current) use of anticoagulants; Translations: [prison (current) use of anticoagulants] Onset: 08-10-2024 Episodic Other aftercare (1 source) Encounter for therapeutic drug level monitoring; Translations: [Encounter for therapeutic drug level monitoring] Onset: 06-03-2024 Episodic Other aftercare (1 source) Other exterminator helper (current) drug therapy; Translations: [Other usp (current) drug therapy] Onset: 06-03-2024 Episodic Other ear and sense organ disorders (2 sources) Tinnitus, unspecified ear; Translations: [Tinnitus, unspecified ear] Onset: 10-07-2024 Episodic Other male genital disorders (20 sources) Prostatic intraepithelial neoplasia; Translations: [Prostatic intraepithelial neoplasia] Onset: 11-29-2011 11-29-2011 Episodic Other screening for suspected conditions (not mental disorders or infectious disease) (15 sources) Raised prostate specific antigen; Translations: [Elevated prostate specific antigen [PSA]] Onset: 05-05-2011 07-05-2021 Episodic Residual codes; unclassified (10 sources) Reduced libido; Translations: [Decreased libido] Onset: 11-19-2009 11-19-2009 Episodic Residual codes; unclassified (10 sources) Suspected clinical finding; Translations: [Contact with and (suspected) exposure to other hazardous metals] Onset: 10-26-2023 10-26-2023 Episodic Skin and subcutaneous tissue infections (9 sources) Cellulitis and abscess of toe; Translations: [Cellulitis of unspecified toe] Onset: 01-30-2009 Resolved: 10-20-2009 10-20-2009 Episodic Results Test Name Value Interpretation Reference Range Facility PSA,Total- Diagnosticon 10-0 PSA, DIAGNOSTIC 0.33 ng/mL Normal 0.00-4.00 [facility] Comment on above: Result Comment: This test was performed using the [employer] tPSA method. Measured values of a patient??sample can vary depending on the testing procedure used. PSA values determined on patient samples by different testing procedures cannot be used interchangeably. If there is a change in PSA assays while monitoring therapy, sequential testing should be performed to confirm baseline values. Performed By: #### L [phone] ####[facility] [id number] [place], [address] Esophagus Dual Contraston Esophagus Dual Contrast [facility] Imaging Services [address] [place] [address] Esophagus Dual Contrast MR#: [id number] Acct: [id number] Name: ORIN CANSECO Rep #: [id number] : 1945 M 79 From: [place] MD PCP: Dr. Negra Meneses MD Status: REG CLI Study: Esophagus Dual Contrast Date of Exam: 03/26/25 Exam# [id number] Ordering Dr: Nito Cardenas MD PROCEDURE: ESOPHAGUS DUAL CONTRAST 03/26/2025 REASON FOR EXAM: DYSPHONIA TECHNIQUE: ESOPHAGUS DUAL CONTRAST FLUOROSCOPIC TIME: 32 seconds. FLUOROGRAPHIC IMAGES: 46 Radiation dose: 5.4 mGy COMPARISON: None FINDINGS: The patient ingested barium. Multiple fluoroscopic images were obtained. No evidence of esophageal obstruction. No mass lesion is seen. There is no evidence of gastroesophageal reflux. The patient ingested a 12 mm tablet the barium. The tablet passed through the gastroesophageal junction without any problem. RAD/Esophagus Dual Contrast IMPRESSION: Unremarkable air-contrast esophagram barium swallow. Reading Location: [place] [address] CC: Dr. Negra Meneses MD; Dr. Nito Cardenas MD Telephony Engineer: Signed Normal [facility] Urgent Care Visit Reporton 0 02-24-2025 Urgent Care Visit Report [facility] [address], [address] [place] [address] OFFICE VISIT Date of Service: 02/24/25 MR#: [id number] Acct: [id number] Name: ORIN CANSECO Rep #: [id number] : 1945 Provider: DAVIN Arrieta Age/Sex: 79/M Location: [facility] Status: Signed Intake Vital Signs 10/07/24 09:54 02/24/25 07:52 Height 5 ft 11 in 5 ft 11 in Weight: 197 lb 6 oz 195 lb BMI 27.5 27.1 BP 140/78 H 132/70 H Blood Pressure Location Lt brachial Lt brachial Position Sitting Sitting Respiration 16 Pulse 116 H 83 Pulse Source Monitor Monitor Temp 96 F L 98.3 F Temp Source Temporal Oral Pulse Oximetry (%) 96 99 Oxygen Delivery Method room air room air Intake Visit Reasons: ITCHY PATCH ON BACK OF HEAD Chief Complaint: Itching on back of head Accompanied by: Self Allergies No Known Allergies Allergy (Verified 02/24/25 07:52) Medications ???Medication ???Instructions ???Recorded ???Confirmed ???Type multivitamin 1 tab PO DAILY 09/22/22 02/24/25 H istory omeprazole 40 mg capsule,delayed 40 mg PO DAILY #90 caps 09/25/24 0 02/24/25 Rx release triamcinolone acetonide 0.5 % 1 applic topical BID #15 grams 02/24/25 Rx topical ointment Have you fallen in the past year?: No Nurse's Note: Patch on back left of head, itchy. X 1 month [facility] Medical History (Updated 02/24/25 @ 08:12 by Garret JIN, PA) Atopic dermatitis COVID-19 Recurrent sinusitis Elevated triglycerides with high cholesterol BPH (benign prostatic hyperplasia) History of testicular mass History of prostate cancer Thoracic aortic aneurysm GERD (gastroesophageal reflux disease) Asthma Gout Hyperlipidemia SVT (supraventricular tachycardia) Paroxysmal atrial fibrillation Surgical History Cataract extraction status H/O prostate biopsy History of radiofrequency ablation procedure for cardiac arrhythmia (2014) History of surgical removal of ganglion cyst History of nasal septoplasty Family History Father Alzheimer disease Brother COPD (chronic obstructive pulmonary disease) Alcoholism Social History adopted: No household members: spouse number of children: 3 current occupational status: employed 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 Patient notes having initially evaluated in September of this year by his PCP, Dr. Saunders, who recommended liby-djc-fwbptej hydrocortisone cream application and follow-up accordingly. He notes since that time he has had minimal to no relief, stating the pruritus causes him to wake up at night sometimes. No hdpj-eox-rrprgjc oral products taken to assist. No localized warmth or tenderness to palpation use of states, and no complaints of fever, chills, sweats, or discharge from site. PMH NC. No other associated symptoms and no other alleviating/aggravat ing factors. ROS Const Constitutional: No other (As above) Exam Const General: cooperative, healthy appearing and no acute distress Nutritional Appearance: average body habitus Orientation: alert and awake [facility] Head: normal to inspection (Except 2 cm diameter lichenified lesion to occipital scalp) Ears: hearing grossly normal bilaterally and external ears normal Nose: external nose normal Eyes General: appearance normal, both eyes and all related structures Resp Effort Inspection: normal respiratory effort and able to speak in complete sentences Cardio Rate: regular rate Pulses: radial pulses present Skin General: no rashes or lesions noted Neuro General: patient alert and patient awake Cognition: normal cognition Speech: speech normal Extrem General: normal to inspection Psych Appearance: grossly normal Mental Status: mental status grossly normal Mood: congruent mood Affect: normal affect Speech and Movement: speech and movement normal Attitude: cooperative Coding Level of Care Code Off vis,est,level 3 Diagnoses Atopic dermatitis L20.9 Assessment and Plan Assessment and Plan (1) Atopic dermatitis: Status: Acute Plan: Tr (more content not included)... Normal [facility] PVR ANK PRESS SONIA VAS LABon 02-03-2025 PVR ANK PRESS [facility]IA [facility] LAB Non-Invasive Vascular Laboratory [facility] Lower Extremity Arterial Physiology Study Bilateral/Complete Date of service/time: 02/03/2025 8:11:35 AM Name: MR. ORIN CANSECO Date of : 1945 Age: 79 years Gender: M Clinical Indication Decreased pulses. TECHNIQUE -------- An arterial physiological examination was performed, including measurement of blood pressures using continuous wave Doppler and recording of plethysmographic with or without Doppler waveforms at the below-mentioned limb segments. FINDINGS -------- RIGHT SIDE AT REST Right Doppler Waveforms Dorsalis pedis: Multiphasic. Post tibial: Multiphasic. Right Pressures Brachial: 132 mmHg Ankle dorsalis pedis: 157 mmHg DEANNE: 1.19 Ankle posterior tibial: 166 mmHg DEANNE: 1.26 Digit: 115 mmHg Right PVR Waveforms Ankle: Normal. Transmetatarsal: Normal. Digit: Normal. LEFT SIDE AT REST Left Doppler Waveforms Dorsalis pedis: Multiphasic. Post tibial: Multiphasic. Left Pressures Brachial: 130 mmHg Ankle dorsalis pedis: 155 mmHg DEANNE: 1.17 Ankle posterior tibial: 167 mmHg DEANNE: 1.27 Digit: 123 mmHg Left PVR Waveforms Ankle: Normal. Transmetatarsal: Normal. Digit: Normal. IMPRESSION RIGHT SIDE Resting right ankle brachial index: 1.26 Right toe brachial index: 0.87 Normal ankle brachial index at rest in the right leg. Normal toe brachial index at rest in the right leg. Right ankle: Normal at rest. LEFT SIDE Resting left ankle brachial index: 1.27 Left toe brachial index: 0.93 Normal ankle brachial index at rest in the left leg. Normal toe brachial index at rest in the left leg. Left ankle: Normal at rest. Technologist: Eva Celestin Sandeep Ordering physician: SUKHDEV TILLMAN Interpreting physician: HELEN Rock MD Final CC [employer] Medical Image : [id number] [employer] See Link below for Image Normal [facility] CNOVon 01-09-2025 CNOV Office Visit (PODIWS) ORIN CANSECO ([id number]) 1945 M Date Time Provider Department 01/09/25 8:45 AM SUKHDEV TILLMAN During your visit today, we recorded the following information about you: Jenna Dye, CHAMP 01/09/2025 9:03 AM Signed Patient presents with: Right Foot - New, Nail Check Left Foot - New, Nail Check Patient presents for dystrophic nails. Bilateral big toenails are thick and discolored. Right grows at an angle. States that they have been this way for years. Has tried OTC antifungal medication without relief. Right toenail had trauma many years ago (kicked a car tire). Sukhdev Tillman 01/09/2025 8:58 AM Signed - Your right big toenail was trimmed short today to reduce pressure and prevent it from digging into the skin. - A fungal culture was taken from the toenail; results can take up to one month. We will contact you when the lab report is available. - A vascular circulation study (PVR) for your lower legs and feet has been ordered; our staff will schedule this test to confirm adequate blood flow before considering any nail?removal procedure. - Continue keeping your toenail trimmed very short at home to avoid further angulation or ingrowth. - Once we have the culture and circulation results, we will review whether to start oral antifungal medication or discuss removing the toenail based on those findings. Sukhdev Tillman 01/09/2025 9:03 AM Signed Subjective rOin Canseco is an 79-year-old male with a history of atrial fibrillation, presenting with a deformed right great toenail. Onychodystrophy: - Deformed right great toenail x16-17 years. - Onset after kicking a tire. - Worsening over the years. - No associated pain or discomfort, regardless of footwear. - Concerns about potential growth causing problems to the underlying bone. Atrial Fibrillation: - History of atrial fibrillation with heart rate up to 200 bpm. - Underwent ablation procedure. - Previously on Coumadin, but no longer taking any anticoagulants. Cardiovascular: (+) bilateral lower leg swelling, (+) bilateral lower leg coldness Musculoskeletal: (-) toe pain Skin: (+) right great toenail deformity PAST MEDICAL HISTORY Diagnosis Date Aneurysm, thoracic aortic Asthma (HCC) Atrial fibrillation (HCC) Patient does not feel that this was an accurate diagnosis. BPH (benign prostatic hyperplasia) COVID-19 Esophageal reflux Gout Mixed hyperlipidemia Other and unspecified hyperlipidemia Prostate cancer (HCC) Recurrent sinusitis SVT (supraventricular tachycardia) (HCC) Testicular mass Current Outpatient Medications Medication Sig Dispense Refill omeprazole (PRILOSEC) 40 mg capsule TAKE 1 CAPSULE BY MOUTH EVERY DAY 90 capsule 1 multivit-minerals/fe rrous fum (MULTI VITAMIN ORAL) Take by mouth. codeine-guaiFENesin (ROBITUSSIN AC) 10-100 mg/5 mL syrup EVERY 8 HOURS NEEDED (Patient not taking: Reported on 10/27/2023) metoprolol succinate ER (TOPROL XL) 50 mg 24 hr tablet .COMPLEX montelukast (SINGULAIR) 10 mg tablet AT BEDTIME (Patient not taking: Reported on 10/27/2023) warfarin (COUMADIN) 1 mg tablet .COMPLEX (Patient not taking: Reported on 10/09/2024) warfarin (COUMADIN) 5 mg tablet DAILY (Patient not taking: Reported on 10/09/2024) tamsulosin ER (FLOMAX) 0.4 mg cp24 Take 0.4 mg by mouth. (Patient not taking: Reported on 06/07/2021) metoprolol tartrate, short acting, (LOPRESSOR) 50 mg tablet Take 1 tablet by mouth. At onset of fibrillation 30 tablet 5 flecainide (TAMBOCOR) 100 mg tablet Take by mouth. Take two tablets if atrial fibrillation persists longer than one hour (Patient taking differently: Take 50 mg by mouth two times a day.) 30 tablet 3 aspirin 81 mg ORAL chewable tablet Take 1 tablet by mouth every other day. (Patient not taking: Reported on 06/07/2021 ) 0 No current facility-administere d medications for this visit. Family History Problem Relation Age of Onset None Mother old age Alzheimer's Disease Father None Sister COPD Brother Alcohol/Drug Brother None Brother None Brother None Brother Objective There were no vitals taken for this visit. - Cardiovascular: Dorsalis pedis and posterior tibial pulses faintly palpable bilaterally; capillary refill time <5 seconds; skin temperature warm to cool bilaterally; color changes noted in both lower extremities with foot in dependent position; multiple varicose veins noted bilaterally. - Skin: No open sores or calluses noted bilaterally. - Neurological: Protective sensation mostly intact bilaterally. - Musculoskeletal: - Right Great Toe: - Nail dystrophic, discolored, deformed, and angulated laterally; incurvation noted along medial nail border. - Left Great Toe: - Nail slightly discolored and dystrophic; no significant incurvation noted. Assessment AND Plan 1. Onychodystrop (more content not included)... Normal [facility] Microorganism Spec Culton Microorganism identified Cx Nom [facility] ORGANISM ID: 1 Many Romi parapsilosis FUNGAL SMEAR: No fungus seen Abnormal [facility] Comment on above: Performed By: #### 1 [id number] #### [facility] CLIA [id number] [address] [place] [address] OF [facility] CNOVon 10-09-2024 CNOV Office Visit (GENSWS) TALITAORIN VINES ([id number]) 1945 Date Time Provider Department 10/09/24 3:45 PM VIJAY ALVAREZ GENSWS During your visit today, we recorded the following information about you: Vijay Alvarez MD 10/12/2024 8:53 AM Signed FOLLOW UP VISIT - ENDOSCOPY NAME: Orin Canseco CLINIC NO.: [id number] DATE OF SERVICE: 10/09/2024 : 1945 REFERRING PHYSICIAN: Vega Ochoa MD Orin is a patient I am following for chronic reflux issues. Orin is a 79-year-old male presenting for follow-up of esophagitis and GERD. Orin reports a persistent sensation of congestion and occasional choking while eating, which he notes is more prolonged than his usual seasonal symptoms experienced around and . He describes a sensation of food slowing down when swallowing, suggesting a possible constriction. He has a history of esophagitis and GERD, with previous endoscopies performed in 2019 and on November 28, 2023. Results at that time demonstrated: Impression: - Normal examined jejunum. - Normal examined duodenum. - Gastritis. Biopsied. - Multiple gastric polyps. Biopsied. - Mildly severe reflux esophagitis with no bleeding. Biopsied. - Normal middle third of esophagus. Biopsied. Pathology at that time returned as: FINAL DIAGNOSIS A. Stomach, antrum, biopsy: - Gastric antral body mucosa with no significant histopathologic findings. - No evidence of Helicobacter pylori organisms on KAYCEE stain. B. Esophagus, lower/distal, biopsy: - Squamoglandular mucosa with chronic inflammation. - Negative for intestinal metaplasia and dysplasia. C. Esophagus, mid, biopsy: - Squamous mucosa with focal active esophagitis; see comment. D. Stomach, fundus, polyp, biopsy: - Fundic gland polyp. He has been on omeprazole 20 mg, which was effective until around [place] time. Recently, his symptoms worsened, and his dosage was increased to [address] Saunders. He has been taking the increased dosage since yesterday afternoon and this morning. VITALS: There were no vitals taken for this visit. On examination, the abdomen is benign. Assessment IMPRESSION: Worsening reflux symptoms PLAN: If the patient notes any problems or changes in bowel function, the patient should contact me immediately. Otherwise I recommend follow up endoscopy if increasing his medication up to 40 mg a day does not improve his symptoms. The patient is to call me in 1 to 2 weeks to see if this increase to 40 mg a day has resolved his symptoms.. Diagnoses: (K20.90) Esophagitis (K21.9) Gastroesophageal reflux disease without esophagitis (Z09) Encounter for follow-up examination after completed treatment for conditions other than malignant neoplasm Return to Clinic: The patient is instructed to follow-up with me as needed. MD Janett Grajeda Richard T, MD 10/12/2024 8:53 AM Signed We discussed your esophagitis and reflux symptoms: - You are currently taking Omeprazole (Prilosec) 40 mg daily, which was increased from 20 mg due to worsening symptoms. It may take 48-72 hours for the medication to reach effective blood levels and provide symptom relief. Please continue taking 40 mg daily as prescribed. - If your symptoms improve on the 40 mg dose within a week, we will not need to perform another endoscopy at this time. However, if your symptoms do not improve or worsen, we will schedule another scope to evaluate your esophagus further. - Reflux is a condition where stomach contents flow back into the esophagus, causing irritation. Omeprazole reduces acid production, which helps your esophagus heal and reduces symptoms, but it does not eliminate reflux itself. - Avoid lying down immediately after eating or drinking alcohol, as this can worsen reflux symptoms. - Alcohol can irritate the stomach lining and esophagus. While occasional consumption, such as one glass of wine, is unlikely to cause significant harm, regular alcohol use can increase irritation. We discussed your history of Mann?s esophagitis concerns: - Previous biopsies of your esophagus have not shown Mann?s esophagitis, but we remain vigilant due to the irritation seen during past scopes. Chronic esophagitis can increase the risk of Mann?s esophagitis, which is a risk factor for esophageal cancer. - If Mann?s esophagitis is ever diagnosed, regular monitoring with endoscopy every 2-3 years will be necessary. Next steps: - Continue taking Omeprazole 40 mg daily and monitor your symptoms. If your symptoms do not improve within a week, please contact our office to discuss scheduling another endoscopy. - Maintain lifestyle modifications to reduce reflux, such as avoiding lying down after meals and limiting alcohol intake. - If you experience new or worsening symptoms, such as diff (more content not included)... Normal [facility] Internal Medicine Office Vis iton 10-06-2024 Internal Medicine Office Visit [facility] [address] [place] [address] [place] [address] OFFICE VISIT Date of Service: 10/07/24 MR#: [id number] Acct: [id number] Name: ORIN CANSECO Rep #: [id number] : 1945 Provider: Dr. 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 Required: No Accompanied by: Self Is patient in pain?: No Allergies No Known Allergies Allergy (Verified 10/07/24 09:51) Medications ???Medication ???Instructions ???Recorded ???Confirmed ???Type multivitamin 1 tab PO DAILY 09/22/22 10/07/24 H istory omeprazole 40 mg capsule,delayed 40 mg PO DAILY #90 caps 09/25/24 0 10/07/24 Rx release hydrocortisone 1 % lotion 1 applic topical BID PRN itching 2 10/07/24 10/07/24 Rx (Anti-Itch (hydrocortisone)) weeks #120 mL Have you fallen in the past year?: No Nurse's Note: having some problems with hiatal hernia reflux and mucous PFSH Medical History COVID-19 Recurrent sinusitis Elevated triglycerides with high cholesterol BPH (benign prostatic hyperplasia) History of testicular mass History of prostate cancer Thoracic aortic aneurysm GERD (gastroesophageal reflux disease) Asthma Gout Hyperlipidemia SVT (supraventricular tachycardia) Paroxysmal atrial fibrillation Surgical History Cataract extraction status H/O prostate biopsy History of radiofrequency ablation procedure for cardiac arrhythmia (2014) History of surgical removal of ganglion cyst History of nasal septoplasty Family History Father Alzheimer disease Brother COPD (chronic obstructive pulmonary disease) Alcoholism Social History adopted: No household members: spouse number of children: 3 current occupational status: employed 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 He has concerns about a 'white noise' sound from his ears bilaterally. He reports that it has been going on for a couple of years. He states he learned to 'tune it out.' He states lately, he has been more conscious of it and wished to have it assessed. He reports he has no trouble hearing, but states the white noise is a little more in the background. 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 He denies any trauma with his ears, however. He reports he does get a little lightheaded, which he reports can be positional. He states it doesn't happen often. He denies any ear pain or drainage. He had his hearing checked early last year by Dr. Cardenas and was told it was normal. He didn't discuss the white noise sound with him, however, stating he wasn't really worried about it at that time. The patient continues to have problems with his GERD. He reports he has an appointment with Dr. Alvarez scheduled for Monday and will discuss further with him. He reports he also has a spot on his scalp that he would like to have looked at. He reports it has been itching, which started when he started using head and shoulders. He has not tried taking or doing anything for it. ROS Const Constitutional: No body ache, excessive sweating, fatigue, fever(s), frequent falls, headache(s), snoring, weakness, weight change, sleep problems or change in appetite Eyes Eyes: No blurry vision, change in vision, eye pain or Light sensitivity ENT ENT: Positive for tinnitus; No abnormal hearing, ear or mastoid pain, hearing loss, dizziness/vertigo, nasal congestion, headache(s), neck pain or sore throat Resp Respiratory: Positive for cough; No shortness of breath, snoring or wheezing Cardio Cardiolo (more content not included)... Normal [facility] Absolute neutrophil countOrd ered By: Negra Meneses on 09-25-2024 Neutrophils (Bld) [#/Vol] 2.8 10*3/uL 2.0-7.7 [facility] Anion gap in Serum or Plasma Ordered By: Negra Meneses on 09-25-2024 Anion gap [Moles/Vol] 10 mmol/L 5-15 [facility] BUN/creatinine ratioOrdered By: Negra Meneses on 09-25-2024 Urea nitrogen/Creatinine [Mass ratio] 14.8 mg/mg 10- [facility] Basophil percentageOrdered B y: Negra Meneses on 09-25-2024 Basophils/100 WBC (Bld) 1.4 % High 0-1 [facility] Bilirubin directOrdered By: Negra Meneses on 09-25-2024 Bilirubin.direct [Mass/Vol] 0.34 mg/dL High 0.00-0.30 [facility] Bilirubin, Directon 09-26-19 25 Bilirubin.direct [Mass/Vol] 0.34 mg/dL High 0.00-0.30 [facility] Comment on above: Order Comment: DR. Cathy FONTANEZ ORDERED PSAD, CMP, LIPID AND CBCDBEA PAN ORDERED LIPID AND LIVER Performed By: #### L 100.0100, L500.4100, L500.4050, L501.4700, L501.9940 ####[facility] [address] [place], [place], [id number] Bilirubin, totalOrdered By: Negra Meneses on 09-25-2024 Bilirubin [Mass/Vol] 0.98 mg/dL 0.00-1.30 [facility] CBC W/Diff, Automatedon 09-07 Absolute Lymph 0.98 X10 3/uL Normal 0.83-4.51 [facility] Comment on above: Order Comment: DR. Cathy FONTANEZ ORDERED PSAD, CMP, LIPID AND CBCD BEA PAN ORDERED LIPID AND LIVER Performed By: #### L 100.0100, L500.4100, L500.4050, L501.4700, L501.9940 #### [facility] [address] [place], [address] Absolute Neut 2.8 X10 3/uL Normal 2.0-7.7 [facility] Comment on above: Order Comment: DR. Cathy FONTANEZ ORDERED PSAD, CMP, LIPID AND CBCD BEA PAN ORDERED LIPID AND LIVER Performed By: #### L 100.0100, L500.4100, L500.4050, L501.4700, L501.9940 #### [facility] [address] [place], [address] Basophils/100 WBC (Bld) 1.4 % High 0-1 [facility] Comment on above: Order Comment: DR. Cathy FONTANEZ ORDERED PSAD, CMP, LIPID AND CBCD BEA PAN ORDERED LIPID AND LIVER Performed By: #### L 100.0100, L500.4100, L500.4050, L501.4700, L501.9940 #### [facility] [address] [place], [address] Eosinophils/100 WBC (Bld) 5.8 % High 0-5 [facility] Comment on above: Order Comment: DR. Cathy FONTANEZ ORDERED PSAD, CMP, LIPID AND CBCD BEA PAN ORDERED LIPID AND LIVER Performed By: #### L 100.0100, L500.4100, L500.4050, L501.4700, L501.9940 #### [facility] [address] [place], [address] Erythrocyte distribution width (RBC) [Ratio] 13.2 % Normal 11.6-14.6 [facility] Comment on above: Order Comment: DR. Cathy FONTANEZ ORDERED PSAD, CMP, LIPID AND CBCD BEA PAN ORDERED LIPID AND LIVER Performed By: #### L 100.0100, L500.4100, L500.4050, L501.4700, L501.9940 #### [facility] [address] [place], [address] Hematocrit (Bld) [Volume fraction] 41.6 % Normal 40-54 [facility] Comment on above: Order Comment: DR. Cathy FONTANEZ ORDERED PSAD, CMP, LIPID AND CBCD BEA PAN ORDERED LIPID AND LIVER Performed By: #### L 100.0100, L500.4100, L500.4050, L501.4700, L501.9940 #### [facility] [address] [place], [address] Hemoglobin (Bld) [Mass/Vol] 13.9 g/dL Normal 13.0-16.5 [facility] Comment on above: Order Comment: DR. Cathy FONTANEZ ORDERED PSAD, CMP, LIPID AND CBCD BEA PAN ORDERED LIPID AND LIVER Performed By: #### L 100.0100, L500.4100, L500.4050, L501.4700, L501.9940 #### [facility] [address] [place], [address] IG% 0.400 Normal 0.0-0.9 [facility] Comment on above: Order Comment: DR. Cathy FONTANEZ ORDERED PSAD, CMP, LIPID AND CBCD BEA PAN ORDERED LIPID AND LIVER Result Comment: IG% - Immature Granulocytes (promyelocytes, myelocytes and metamyelocytes) > 1% indicates that a LEFT SHIFT is Present. Performed By: #### L 100.0100, L500.4100, L500.4050, L501.4700, L501.9940 #### [facility] [address] [place], [address] Lymphocytes/100 WBC (Bld) 20.2 % Normal 19-41 [facility] Comment on above: Order Comment: DR. Cathy FONTANEZ ORDERED PSAD, CMP, LIPID AND CBCD BEA PAN ORDERED LIPID AND LIVER Performed By: #### L 100.0100, L500.4100, L500.4050, L501.4700, L501.9940 #### [facility] [address] [place], [address] MCH (RBC) [Entitic mass] 31.2 pg Normal 27.0-32.0 [facility] Comment on above: Order Comment: DR. Cathy FONTANEZ ORDERED PSAD, CMP, LIPID AND CBCD BEA PAN ORDERED LIPID AND LIVER Performed By: #### L 100.0100, L500.4100, L500.4050, L501.4700, L501.9940 #### [facility] [address] [place], [address] MCHC (RBC) [Mass/Vol] 33.4 g/dL Normal 32-36 [facility] Comment on above: Order Comment: DR. Cathy FONTANEZ ORDERED PSAD, CMP, LIPID AND CBCD BEA PAN ORDERED LIPID AND LIVER Performed By: #### L 100.0100, L500.4100, L500.4050, L501.4700, L501.9940 #### [facility] [address] [place], [address] MCV (RBC) [Entitic vol] 93.3 fL Normal 80-94 [facility] Comment on above: Order Comment: DR. Cathy FONTANEZ ORDERED PSAD, CMP, LIPID AND CBCD BEA PAN ORDERED LIPID AND LIVER Performed By: #### L 100.0100, L500.4100, L500.4050, L501.4700, L501.9940 #### [facility] [address] [place], [address] Monocytes/100 WBC (Bld) 13.6 % High 0-10 [facility] Comment on above: Order Comment: DR. Cathy FONTANEZ ORDERED PSAD, CMP, LIPID AND CBCD BEA PAN ORDERED LIPID AND LIVER Performed By: #### L 100.0100, L500.4100, L500.4050, L501.4700, L501.9940 #### [facility] [address] [place], [address] Neutrophils/100 WBC (Bld) 58.6 % Normal 47-70 [facility] Comment on above: Order Comment: DR. Cathy FONTANEZ ORDERED PSAD, CMP, LIPID AND CBCD BEA PAN ORDERED LIPID AND LIVER Performed By: #### L 100.0100, L500.4100, L500.4050, L501.4700, L501.9940 #### [facility] [address] [place], [address] Nucleated RBC (Bld) [#/Vol] 0 10*3/uL Normal 0-5 [facility] Comment on above: Order Comment: DR. Cathy FONTANEZ ORDERED PSAD, CMP, LIPID AND CBCD BEA PAN ORDERED LIPID AND LIVER Performed By: #### L 100.0100, L500.4100, L500.4050, L501.4700, L501.9940 #### [facility] [address] [place], [address] Platelet mean volume (Bld) [Entitic vol] 9.6 fL Normal 6.2-12.0 [facility] Comment on above: Order Comment: DR. Cathy FONTANEZ ORDERED PSAD, CMP, LIPID AND CBCD BEA PAN ORDERED LIPID AND LIVER Performed By: #### L 100.0100, L500.4100, L500.4050, L501.4700, L501.9940 #### [facility] [address] [place], [address] Platelets (Bld) [#/Vol] 178 10*3/uL Normal 150-450 [facility] Comment on above: Order Comment: DR. Cathy FONTANEZ ORDERED PSAD, CMP, LIPID AND CBCD BEA PAN ORDERED LIPID AND LIVER Performed By: #### L 100.0100, L500.4100, L500.4050, L501.4700, L501.9940 #### [facility] [address] [place], [address] RBC (Bld) [#/Vol] 4.46 10*6/uL Low 4.6-6.2 [facility] Comment on above: Order Comment: DR. Cathy FONTANEZ ORDERED PSAD, CMP, LIPID AND CBCD BEA PAN ORDERED LIPID AND LIVER Performed By: #### L 100.0100, L500.4100, L500.4050, L501.4700, L501.9940 #### [facility] [address] [place], [address] RDW SD 44.6 fl High 35.1-43.9 [facility] Comment on above: Order Comment: DR. Cathy FONTANEZ ORDERED PSAD, CMP, LIPID AND CBCD BEA PAN ORDERED LIPID AND LIVER Performed By: #### L 100.0100, L500.4100, L500.4050, L501.4700, L501.9940 #### [facility] [address] [place], [address] WBC (Bld) [#/Vol] 4.9 10*3/uL Normal 4.4-11.0 [facility] Comment on above: Order Comment: DR. Cathy FONTANEZ ORDERED PSAD, CMP, LIPID AND CBCD BEA PAN ORDERED LIPID AND LIVER Performed By: #### L 100.0100, L500.4100, L500.4050, L501.4700, L501.9940 #### [facility] [address] [place], [address] Calculated very low density lipoprotein (VLDL) cholesterol measurementOrdered By: Negra Meneses on 09-25-2024 VLDL Cholesterol 38 mg/dL 5-40 [facility] Carbon dioxide, total [Moles /volume] in Central venous bloodOrdered By: Negra Mensees on 09-25-2024 CO2 [Moles/Vol] 25.7 mmol/L 21.0-32.0 [facility] Chloride assayOrdered By: Mian Meneses on 09-25-2024 Chloride [Moles/Vol] 108 mmol/L 98-108 [facility] Comprehensive Metabolic Prof ilon 09-25-2024 Albumin [Mass/Vol] 4.0 g/dL Normal 3.4-4.8 [facility] Comment on above: Order Comment: DR. Cathy FONTANEZ ORDERED PSAD, CMP, LIPID AND CBCDJOHN ROOF ORDERED LIPID AND LIVER Performed By: #### L 100.0100, L500.4100, L500.4050, L501.4700, L501.9940 ####[facility] [address] [place], [address] Albumin/Globulin [Mass ratio] 1.5 {ratio} Normal 0.9-2.4 [facility] Comment on above: Order Comment: DR. Cathy FONTANEZ ORDERED PSAD, CMP, LIPID AND CBCDJOHN ROOF ORDERED LIPID AND LIVER Performed By: #### L 100.0100, L500.4100, L500.4050, L501.4700, L501.9940 ####[facility] [address] [place], [address] ALK PHOS 90 U/L Normal 40-129 [facility] Comment on above: Order Comment: DR. Cathy FONTANEZ ORDERED PSAD, CMP, LIPID AND CBCDJOHN ROOF ORDERED LIPID AND LIVER Performed By: #### L 100.0100, L500.4100, L500.4050, L501.4700, L501.9940 ####[facility] [address] [place], [address] ALT [Catalytic activity/Vol] 25 U/L Normal <=46 [facility] Comment on above: Order Comment: DR. Cathy FONTANEZ ORDERED PSAD, CMP, LIPID AND CBCDJOHN ROOF ORDERED LIPID AND LIVER Performed By: #### L 100.0100, L500.4100, L500.4050, L501.4700, L501.9940 ####[facility] [address] [place], [address] AST [Catalytic activity/Vol] 25 U/L Normal <=37 [facility] Comment on above: Order Comment: DR. Cathy FONTANEZ ORDERED PSAD, CMP, LIPID AND CBCDJOHN ROOF ORDERED LIPID AND LIVER Performed By: #### L 100.0100, L500.4100, L500.4050, L501.4700, L501.9940 ####[facility] [address] [place], [address] Bilirubin [Mass/Vol] 0.98 mg/dL Normal 0.00-1.30 [facility] Comment on above: Order Comment: DR. Cathy FONTANEZ ORDERED PSAD, CMP, LIPID AND CBCDJOJOSE PAN ORDERED LIPID AND LIVER Performed By: #### L 100.0100, L500.4100, L500.4050, L501.4700, L501.9940 ####[facility] [address] [place], [address] BUN/CRE 14.8 RATIO Normal 10-20 [facility] Comment on above: Order Comment: DR. Cathy FONTANEZ ORDERED PSAD, CMP, LIPID AND CBCDBEA [facility] ORDERED LIPID AND LIVER Performed By: #### L 100.0100, L500.4100, L500.4050, L501.4700, L501.9940 ####[facility] [address] [place], [address] Calcium [Mass/Vol] 9.6 mg/dL Normal 7.6-11.0 [facility] Comment on above: Order Comment: DR. Cathy FONTANEZ ORDERED PSAD, CMP, LIPID AND CBCDBEA PAN ORDERED LIPID AND LIVER Performed By: #### L 100.0100, L500.4100, L500.4050, L501.4700, L501.9940 ####[facility] [address] [place], [address] Chloride [Moles/Vol] 108 mmol/L Normal 98-108 [facility] Comment on above: Order Comment: DR. Cathy FONTANEZ ORDERED PSAD, CMP, LIPID AND CBCDDEVANHN MAXIM ORDERED LIPID AND LIVER Performed By: #### L 100.0100, L500.4100, L500.4050, L501.4700, L501.9940 ####[facility] [address] [place], [address] CO2 [Moles/Vol] 25.7 mmol/L Normal 21.0-32.0 [facility] Comment on above: Order Comment: DR. Cathy FONTANEZ ORDERED PSAD, CMP, LIPID AND CBCDBEA PAN ORDERED LIPID AND LIVER Performed By: #### L 100.0100, L500.4100, L500.4050, L501.4700, L501.9940 ####[facility] [address] [place], [address] Creatinine [Mass/Vol] 1.24 mg/dL High 0.70-1.20 [facility] Comment on above: Order Comment: DR. Cathy FONTANEZ ORDERED PSAD, CMP, LIPID AND CBCDBEA PAN ORDERED LIPID AND LIVER Performed By: #### L 100.0100, L500.4100, L500.4050, L501.4700, L501.9940 ####[facility] [address] [place], [address] GAP 10 Normal 5-15 [facility] Comment on above: Order Comment: DR. Cathy FONTANEZ ORDERED PSAD, CMP, LIPID AND CBCDBEA PAN ORDERED LIPID AND LIVER Performed By: #### L 100.0100, L500.4100, L500.4050, L501.4700, L501.9940 ####[facility] [address] [place], [address] GFR/1.73 sq M.predicted among non-blacks MDRD (S/P/Bld) [Vol rate/Area] 59 mL/min/{1.73_m2} Low >60 [facility] Comment on above: Order Comment: DR. Cathy FONTANEZ ORDERED PSAD, CMP, LIPID AND CBCMICHAEL PAN ORDERED LIPID AND LIVER Result Comment: mL/m in/1.73m2 CKD-EPI Creatinine Equation (2020) Performed By: #### L 100.0100, L500.4100, L500.4050, L501.4700, L501.9940 ####[facility] [address] [place], [address] Globulin (S) [Mass/Vol] 2.7 g/dL Normal 2.2-4.2 [facility] Comment on above: Order Comment: DR. Cathy FONTANEZ ORDERED PSAD, CMP, LIPID AND CBCMICHAEL PAN ORDERED LIPID AND LIVER Performed By: #### L 100.0100, L500.4100, L500.4050, L501.4700, L501.9940 ####[facility] [address] [place], [address] Glucose [Mass/Vol] 106 mg/dL High 70-99 [facility] Comment on above: Order Comment: DR. Cathy FONTANEZ ORDERED PSAD, CMP, LIPID AND CBCDBEA PAN ORDERED LIPID AND LIVER Performed By: #### L 100.0100, L500.4100, L500.4050, L501.4700, L501.9940 ####[facility] [address] [place], [address] Potassium [Moles/Vol] 4.7 mmol/L Normal 3.3-5.1 [facility] Comment on above: Order Comment: DR. Cathy FONTANEZ ORDERED PSAD, CMP, LIPID AND CBCMICHAEL PAN ORDERED LIPID AND LIVER Performed By: #### L 100.0100, L500.4100, L500.4050, L501.4700, L501.9940 ####[facility] [address] [place], [address] Sodium [Moles/Vol] 144 mmol/L Normal 133-145 [facility] Comment on above: Order Comment: DR. Cathy FONTANEZ ORDERED PSAD, CMP, LIPID AND CBCDBEA PAN ORDERED LIPID AND LIVER Performed By: #### L 100.0100, L500.4100, L500.4050, L501.4700, L501.9940 ####[facility] [address] [place], [place], [id number] T PROT 6.7 g/dL Normal 5.9-8.4 [facility] Comment on above: Order Comment: DR. Cathy FONTANEZ ORDERED PSAD, CMP, LIPID AND CBCDBEA PAN ORDERED LIPID AND LIVER Performed By: #### L 100.0100, L500.4100, L500.4050, L501.4700, L501.9940 ####[facility] [address] [place], [address] Urea nitrogen [Mass/Vol] 18 mg/dL Normal 4-19 [facility] Comment on above: Order Comment: DR. Cathy FONTANEZ ORDERED PSAD, CMP, LIPID AND CBCDBEA PAN ORDERED LIPID AND LIVER Performed By: #### L 100.0100, L500.4100, L500.4050, L501.4700, L501.9940 ####[facility] [address] [place], [address] Diagnostic total prostate sp ecific antigen (PSA) measurementOrdered By: Negra Meneses on 09-25-2024 Prostate Specific Antigen Total 0.49 ng/mL 0.00-4.00 [facility] Comment on above: This test was perfor med using the [employer] tPSA method. Measured values of a patient sample can vary depending on the testing procedure used. PSA values determined on patient samples by different testing procedures cannot be used interchangeably. If there is a change in PSA assays while monitoring therapy, sequential testing should be performed to confirm baseline values. Eosinophil percentageOrdered By: Negra Meneses on 09-25-2024 Eosinophils/100 WBC (Bld) 5.8 % High 0-5 [facility] Erythrocyte distribution wid th ratioOrdered By: Negra Meneses on 09-25-2024 Erythrocyte distribution width (RBC) [Ratio] 13.2 % 11.6-14.6 [facility] Erythrocyte distribution wid th standard deviationOrdered By: Negra Meneses on 09-25-2024 Erythrocyte distribution width (RBC) [Entitic vol] 44.6 fL High 35.1-43.9 [facility] GFR/1.73 sq M.predicted deann g non-blacks MDRD (S/P/Bld) [Vol rate/Area]Ordered By: Negra Meneses on 09-25-2024 Estimated GFR (MDRD) Non-Af Amer 59 Low >60 [facility] Comment on above: mL/min/1.73m2 CKD-EP I Creatinine Equation (2020) Hematocrit Auto (Bld) [Volum e fraction]Ordered By: Negra Meneses on 09-25-2024 Hematocrit (Bld) [Volume fraction] 41.6 % 40-54 [facility] Hemoglobin measurementOrdere d By: Negra Meneses on 09-25-2024 Hemoglobin (Bld) [Mass/Vol] 13.9 g/dL 13.0-16.5 [facility] Immature granulocytes/100 WB C Auto (Bld)Ordered By: Negra Meneses on 09-25-2024 Immature granulocytes/100 WBC (Bld) 0.400 % 0.0-0.9 [facility] Comment on above: IG% - Immature Granu locytes (promyelocytes, myelocytes and metamyelocytes) > 1% indicates that a LEFT SHIFT is Present. LDL calc ser/plasOrdered By: Negra Meneses on 09-25-2024 LDL Cholesterol, Calculated 138 mg/dL [facility] Comment on above: Mrgmwevwcs=749-090 m g/dL & Higher Rven=931 mg/dL or greater Laboratory - Chemistry and C hemistry - challengeOrdered By: Negra Meneses on 09-25-2024 AST [Catalytic activity/Vol] 25 U/L <38 [facility] Lipid Profileon 09-25-2024 CHOL:HDL 4.85 Normal [facility] Comment on above: Order Comment: DR. Cathy FONTANEZ ORDERED PSAD, CMP, LIPID AND CBCDBEA PAN ORDERED LIPID AND LIVER Performed By: #### L 100.0100, L500.4100, L500.4050, L501.4700, L501.9940 ####[facility] [address] [place], [address] Cholesterol [Mass/Vol] 222 mg/dL High <=200 [facility] Comment on above: Order Comment: DR. Cathy FONTANEZ ORDERED PSAD, CMP, LIPID AND CBCMICHAEL PAN ORDERED LIPID AND LIVER Result Comment: Chol esterol level, Desirable <200 mg/dL Borderline high cholesterol 200-239 mg/dL High cholesterol >=240 mg/dL Recommendations of the NCEP Adult Treatment Panel for the following risk-cutoff thresholds for the [place] population. Performed By: #### L 100.0100, L500.4100, L500.4050, L501.4700, L501.9940 ####[facility] [address] [place], [address] Cholesterol in HDL [Mass/Vol] 46 mg/dL Normal [facility] Comment on above: Order Comment: DR. Cathy FONTANEZ ORDERED PSAD, CMP, LIPID AND CBCMICHAEL PAN ORDERED LIPID AND LIVER Result Comment: [place] on[place] Cholesterol Education Program (NCEP) guidelines: <40 mg/dL: Low HDL-cholesterol (major risk factor for CHD) >= 60 mg/dL: High HDL-cholesterol (negative risk factor for CHD) HDL-cholesterol is affected by a number of factors, e.g. smoking, exercise, hormones, sex and age. Performed By: #### L 100.0100, L500.4100, L500.4050, L501.4700, L501.9940 ####[facility] [address] [place], [address] Cholesterol in LDL [Mass/Vol] 138 mg/dL Normal [facility] Comment on above: Order Comment: DR. Catyh FONTANEZ ORDERED PSAD, CMP, LIPID AND CBCMICHAEL PAN ORDERED LIPID AND LIVER Result Comment: Bord djeiyt=168-583 mg/dL Higher Bmhi=874 mg/dL or greater Performed By: #### L 100.0100, L500.4100, L500.4050, L501.4700, L501.9940 ####[facility] [address] [place], [address] Cholesterol in VLDL [Mass/Vol] 38 mg/dL Normal 5-40 [facility] Comment on above: Order Comment: DR. Cathy FONTANEZ ORDERED PSAD, CMP, LIPID AND CBCDBEA PAN ORDERED LIPID AND LIVER Performed By: #### L 100.0100, L500.4100, L500.4050, L501.4700, L501.9940 ####[facility] [address] [place], [address] Triglyceride [Mass/Vol] 190 mg/dL Normal [facility] Comment on above: Order Comment: DR. Cathy FONTANEZ ORDERED PSAD, CMP, LIPID AND CBCDBEA PAN ORDERED LIPID AND LIVER Result Comment: The drugs N-Acetylcysteine and Metamizole may falsely depress this assay. Normal range: <150 mg/dL Borderline High: 150-199 mg/dL High: 200-499 mg/dL Very High: >500 mg/dL Performed By: #### L 100.0100, L500.4100, L500.4050, L501.4700, L501.9940 ####[facility] [address] [place], [address] Liver Profileon 09-25-2024 ALB Normal 3.4-4.8 [facility] Comment on above: Result Comment: ADDE D TO GIDEON ORDER Performed By: #### L 500.3400 #### [facility] [address] [place], [address] ALK PHOS Normal 40-129 [facility] Comment on above: Result Comment: ADDE D TO GIDEON ORDER Performed By: #### L 500.3400 #### [facility] [address] [place], [address] ALT Normal <=46 [facility] Comment on above: Result Comment: ADDE D TO GIDEON ORDER Performed By: #### L 500.3400 #### [facility] [address] [place], [address] AST Normal <=37 [facility] Comment on above: Result Comment: ADDE D TO GIDEON ORDER Performed By: #### L 500.3400 #### [facility] [address] [place], [address] D BILI Normal 0.00-0.30 [facility] Comment on above: Result Comment: ADDE D TO GIDEON ORDER Performed By: #### L 500.3400 #### [facility] [address] [place], [address] T BILI Normal 0.00-1.30 [facility] Comment on above: Result Comment: ADDE D TO GIDEON ORDER Performed By: #### L 500.3400 #### [facility] [address] [place], [address] T PROT Normal 5.9-8.4 [facility] Comment on above: Result Comment: ADDE D TO GIDEON ORDER Performed By: #### L 500.3400 #### [facility] [address] [place], [address] Lymphocytes Auto (Unsp spec) [#/Vol]Ordered By: Negra Meneses on 09-25-2024 Lymphocytes (Bld) [#/Vol] 0.98 10*3/uL 0.83-4.51 [facility] Lymphocytes/100 WBC Auto (Un sp spec)Ordered By: Negra Meneses on 09-25-2024 Lymphocytes/100 WBC (Bld) 20.2 % 19-41 [facility] MCV (mean corpuscular volume ) determinationOrdered By: Negra Meneses on 09-25-2024 MCV (RBC) [Entitic vol] 93.3 fL 80-94 [facility] Mean corpuscular hemoglobin (MCH) determinationOrdered By: Negra Meneses on 09-25-2024 MCH (RBC) [Entitic mass] 31.2 pg 27.0-32.0 [facility] Mean corpuscular hemoglobin concentration (MCHC) determinationOrdered By: Negra Meneses on 09-25-2024 MCHC (RBC) [Mass/Vol] 33.4 g/dL 32-36 [facility] Mean platelet volume determi nationOrdered By: Negra Meneses on 09-25-2024 Platelet mean volume (Bld) [Entitic vol] 9.6 fL 6.2-12.0 [facility] Monocyte percentageOrdered B y: Negra Meneses on 09-25-2024 Monocytes/100 WBC (Bld) 13.6 % High 0-10 [facility] Neutrophil percentageOrdered By: Negra Meneses on 09-25-2024 Neutrophils/100 WBC (Bld) 58.6 % 47-70 [facility] Nucleated red blood cell per centageOrdered By: Negra Meneses on 09-25-2024 Nucleated RBC/100 WBC (Bld) [Ratio] 0 % 0-5 [facility] PSA,Total- Diagnosticon 09-07 PSA, DIAGNOSTIC 0.49 ng/mL Normal 0.00-4.00 [facility] Comment on above: Order Comment: DR. Cathy FONTANEZ ORDERED PSAD, CMP, LIPID AND CBCDJOJOSE PAN ORDERED LIPID AND LIVER Result Comment: This test was performed using the [employer] tPSA method. Measured values of a patient??sample can vary depending on the testing procedure used. PSA values determined on patient samples by different testing procedures cannot be used interchangeably. If there is a change in PSA assays while monitoring therapy, sequential testing should be performed to confirm baseline values. Performed By: #### L 100.0100, L500.4100, L500.4050, L501.4700, L501.9940 ####[facility] [id number] [place], [address] Platelet countOrdered By: Mian Meneses on 09-25-2024 Platelets (Bld) [#/Vol] 178 10*3/uL 150-450 [facility] Potassium (Unsp spec) [Mass/ Vol]Ordered By: Negra Meneses on 09-25-2024 Potassium [Moles/Vol] 4.7 mmol/L 3.3-5.1 [facility] RBC Auto (Bld) [#/Vol]Ordere d By: Negra Meneses on 09-25-2024 RBC (Bld) [#/Vol] 4.46 10*6/uL Low 4.6-6.2 [facility] Screening total cholesterol/ high density lipoprotein (HDL) cholesterol ratioOrdered By: Negra Meneses on 09-25-2024 Cholesterol.total/Choles terol in HDL [Mass ratio] 4.85 {ratio} [facility] Serum creatinine measurement (mass/volume)Ordered By: Negra Meneses on 09-25-2024 Creatinine [Mass/Vol] 1.24 mg/dL High 0.70-1.20 [facility] Serum globulin measurementOr dered By: Negra Meneses on 09-25-2024 Globulin (S) [Mass/Vol] 2.7 g/dL 2.2-4.2 [facility] Serum glucose measurement (m ass/volume)Ordered By: Negra Meneses on 09-25-2024 Glucose [Mass/Vol] 106 mg/dL High 70-99 [facility] Serum or plasma alanine lamb otransferase (ALT) measurementOrdered By: Negra Meneses on 09-25-2024 ALT [Catalytic activity/Vol] 25 U/L <47 [facility] Serum or plasma albumin basil urement (mass/volume)Ordered By: Negra Meneses on 09-25-2024 Albumin [Mass/Vol] 4.0 g/dL 3.4-4.8 [facility] Serum or plasma albumin/glob ulin mass ratioOrdered By: Negra Meneses on 09-25-2024 Albumin/Globulin [Mass ratio] 1.5 {ratio} 0.9-2.4 [facility] Serum or plasma alkaline barrington sphatase measurementOrdered By: Negra Meneses on 09-25-2024 ALP [Catalytic activity/Vol] 90 U/L 40-129 [facility] Serum or plasma calcium basil urement (mass/volume)Ordered By: Negra Meneses on 09-25-2024 Calcium [Mass/Vol] 9.6 mg/dL 7.6-11.0 [facility] Serum or plasma cholesterol in HDL measurement (mass/volume)Ordered By: Negra Meneses on 09-25-2024 Cholesterol in HDL [Mass/Vol] 46 mg/dL >40 [facility] Comment on above: National Cholesterol Education Program (NCEP) guidelines:<40 mg/dL: Low HDL-cholesterol (major risk factor for CHD)>= 60 mg/dL: High HDL-cholesterol (negative risk factor for CHD)HDL-cholesterol is affected by a number of factors, e.g. smoking, exercise, hormones, sex and age. Serum or plasma cholesterol measurement (mass/volume)Ordered By: Negra Meneses on 09-25-2024 Cholesterol [Mass/Vol] 222 mg/dL High <201 [facility] Comment on above: Cholesterol level, D esirable <200 mg/dLBorderline high cholesterol 200-239 mg/dLHigh cholesterol >=240 mg/dLRecommendations of the NCEP Adult Treatment Panel for the following risk-cutoff thresholds for the [place] population. Serum or plasma urea nitroge n measurement (mass/volume)Ordered By: Negra Meneses on 09-25-2024 Urea nitrogen [Mass/Vol] 18 mg/dL 4-19 [facility] Sodium levelOrdered By: Annie Meneses on 09-25-2024 Sodium [Moles/Vol] 144 mmol/L 133-145 [facility] Total proteinOrdered By: Ned Meneses on 09-25-2024 Protein [Mass/Vol] 6.7 g/dL 5.9-8.4 [facility] Triglycerides measurementOrd ered By: Negra Meneses on 09-25-2024 Triglyceride [Mass/Vol] 190 mg/dL <199 [facility] Comment on above: The drugs N-Acetylcy steine and Metamizole may falsely depress this assay. Normal range: <150 mg/dLBorderline High: 150-199 mg/dLHigh: 200-499 mg/dLVery High: >500 mg/dL White blood cell (WBC) count Ordered By: Negra Meneses on 09-25-2024 WBC (Bld) [#/Vol] 4.9 10*3/uL 4.4-11.0 [facility] Internal Medicine Office Vis emiliano 09-24-2024 Internal Medicine Office Visit [facility] [address] [place] [address] [place] [address] OFFICE VISIT Date of Service: 09/25/24 MR#: [id number] Acct: [id number] Name: ORIN CANSECO Rep #: [id number] : 1945 Provider: Dr. 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: No Is patient in pain?: No Allergies No Known Allergies Allergy (Verified 09/25/24 07:51) Medications ???Medication ???Instructions ???Recorded ???Confirmed ???Type multivitamin 1 tab PO DAILY 09/22/22 09/25/24 H istory omeprazole 20 mg capsule,delayed 20 mg PO DAILY #90 caps 11/30/23 0 09/25/24 Rx release Have you fallen in the past year?: Yes (09/2024) [facility] Medical History COVID-19 Recurrent sinusitis Elevated triglycerides with high cholesterol BPH (benign prostatic hyperplasia) History of testicular mass History of prostate cancer Thoracic aortic aneurysm GERD (gastroesophageal reflux disease) Asthma Gout Hyperlipidemia SVT (supraventricular tachycardia) Paroxysmal atrial fibrillation Surgical History Cataract extraction status H/O prostate biopsy History of radiofrequency ablation procedure for cardiac arrhythmia (2014) History of surgical removal of ganglion cyst History of nasal septoplasty Family History Father Alzheimer disease Brother COPD (chronic obstructive pulmonary disease) Alcoholism Social History (Updated 09/25/24 @ 08:[address] 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 He is due for some routine blood work and is up to date on his screening. He isn't due for any immunizations. He doesn't smoke and doesn't take any prescription medications. The patient has a history of atrial fibrillation and SVT s/p ablation. The patient saw cardiology in April and completed a stress test at that time. He is no longer taking any medications. He denies any current chest pain, shortness of breath or palpitations. The patient follows with urology for a history of prostate cancer, however, hasn't seen them recently. He denies any urinary symptoms at all. The patient feels that his hiatal hernia is getting worse. He reports he is having an increase in his reflux symptoms including a cough. He states he only takes omeprazole 3-4 times per week. He reports he was told by his ENT that they felt his mucous symptoms were related to GERD and suggested increasing the dose. He does still occasionally choke and cough on foods/liquids. He had a normal barium swallow last year. He hasn't had an EGD recently. Medications reviewed: Yes Orin likes to exercises by walking. They watch their diet for sodium, low fat, and low cholesterol most of the time. List of current specialists seen: Urology End of life planning discussed including patient's advanced directive wishes: Discussed. Patient does have one in place. I am willing to follow Orin' advanced directives PHQ-2/Depression screen They in the past two weeks denies having felt down, depressed, hopeless or with little interest or pleasure in doing things. Functional Ability/Safety Screen 1. Was the patient's time up and go test unsteady or longer than 30 seconds? No 2. Does the patient need help with the phone, transportation, shopping, prepared meals, housework, laundry, medications or managing money? No 3. Does your home have rugs in the hallway, lack of grab bars in the bathroom, lack of handrails on the stairs or have poor lighting? No Hearing evaluation: Normal ROS Const Constitutional: No body ache, chills, excessive sweating, fatigue, fever(s), (more content not included)... Normal [facility] International normalized rat io (INR) calculationOrdered By: Bea Pan on 07-16-2024 INR Coag (Bld) [Relative time] 1.6 {INR} [facility] Prothrombin Time w/INRon INR Coag (PPP) [Relative time] 1.6 {INR} Normal [facility] Comment on above: Performed By: #### L 300.3900 #### [facility] [address] [place], [address] PT Coag (PPP) [Time] 19.6 s High 11.7-14.9 [facility] Comment on above: Performed By: #### L 300.3900 #### [facility] [address] [place], [address] Prothrombin timeOrdered By: Bea Pan on 07-16-2024 PT Coag (PPP) [Time] 19.6 s High 11.7-14.9 [facility] International normalized rat io (INR) calculationOrdered By: Bea Pan on 06-24-2024 INR Coag (Bld) [Relative time] 2.7 {INR} [facility] Prothrombin Time w/INRon INR Coag (PPP) [Relative time] 2.7 {INR} Normal [facility] Comment on above: Performed By: #### L 300.3900 #### [facility] [address] [place], [address] PT Coag (PPP) [Time] 28.3 s High 11.7-14.9 [facility] Comment on above: Performed By: #### L 300.3900 #### [facility] [address] [place], [address] (042 Prothrombin timeOrdered By: Bea Pan on 06-24-2024 PT Coag (PPP) [Time] 28.3 s High 11.7-14.9 [facility] Prothrombin Time w/INRon INR Coag (PPP) [Relative time] 3.7 {INR} Normal [facility] Comment on above: Performed By: #### L 300.3900 #### [facility] [address] [place], [address] PT Coag (PPP) [Time] 36.6 s High 11.7-14.9 [facility] Comment on above: Performed By: #### L 300.3900 #### [facility] [address] [place], [address] (580 International normalized rat io (INR) calculationOrdered By: Bea Pan on 06-04-2024 INR Coag (Bld) [Relative time] 2.6 {INR} [facility] Prothrombin Time w/INRon INR Coag (PPP) [Relative time] 2.6 {INR} Normal [facility] Comment on above: Performed By: #### L 300.3900 #### [facility] [address] [place], [address] PT Coag (PPP) [Time] 27.7 s High 11.7-14.9 [facility] Comment on above: Performed By: #### L 300.3900 #### [facility] [address] [place], [address] (764 Prothrombin timeOrdered By: Bea Pan on 06-04-2024 PT Coag (PPP) [Time] 27.7 s High 11.7-14.9 [facility] Prothrombin Time w/INRon INR Coag (PPP) [Relative time] 2.4 {INR} Normal [facility] Comment on above: Performed By: #### L 300.3900 #### [facility] [address] [place], [address] PT Coag (PPP) [Time] 26.3 s High 11.7-14.9 [facility] Comment on above: Performed By: #### L 300.3900 #### [facility] [address] [place], [address] Prothrombin Time w/INRon INR Coag (PPP) [Relative time] 1.6 {INR} Normal [facility] Comment on above: Performed By: #### L 300.3900 #### [facility] [address] [place], [address] PT Coag (PPP) [Time] 19.4 s High 11.7-14.9 [facility] Comment on above: Performed By: #### L 300.3900 #### [facility] [address] [place], [address] Stress Reporton 05-10-2024 Stress Report [facility] [address] [place] [address] MR#: [id number] Acct: [id number] Name: ORIN CANSECO Rep #: [id number] : 1945 79 From: Anuj Velasquez MD Primary Care: Dr. Negra Meneses MD Status: REG CLI Referring Dr: Bea Pan NP [employer]NAGER-C Sex: M C Stress Test Report Exercise myocardial perfusion stress test. 79-year-old man with a history of antiarrhythmic therapy Stress protocol: Resting EKG demonstrates sinus bradycardia with a first-degree AV block and a rate of 54 bpm resting blood pressure is 124/68 mmHg. The patient exercised according to the regular [employer] protocol for a total duration of 9 minutes attaining a maximum heart rate of 126 bpm which was 90% of maximum predicted heart rate; the maximum workload was 10.1 metabolic equivalents. At rest there were no ST or T wave changes noted to suggest ischemia and at peak exercise upsloping ST changes only were noted which did not meet the criteria for ischemia. No clinical angina was noted the test was terminated due to the target heart rate being achieved/fatigue. The peak blood pressure was 170/70 mmHg. Rate-pressure product was 20,000. Myocardial perfusion protocol. 10.8 mCi of technetium 99m sestamibi was injected at rest. The patient exercised according to regular [employer] protocol for total duration of 9 minutes and at peak exercise 31.9 mCi of technetium 99m sestamibi was injected stress images were obtained stress and rest images were reconstructed in comparing the short axis vertical long and horizontal long axis. Gated images were also obtained. Perfusion SPECT analysis: Review of the stress images demonstrate normal uptake of tracer noted in all areas of the myocardium. The resting images similarly demonstrate normal uptake of tracer noted in all areas of the myocardium. No areas of reversibility are noted to suggest ischemia no previous infarct was noted. Gated SPECT analysis: The gated ejection fraction is 69%. Conclusion: Normal exercise myocardial perfusion stress test at a high workload Preserved ejection fraction. 05/10/24 1546 Date Anuj Velasquez MD CC: FRANCESCA Pan; Dr. Negra Meneses MD Date Dictated: 05/10/241543 Date Transcribed: 05/10/241543 Telephony Engineer: [place] Signed Normal [facility] EGD Study observation Narrat erendira 11-28-2023 [facility] Gastrointestinal Endoscopy Patient Name: Orin Canseco Procedure Date: 11/28/2023 1:16 PM Date of : 1945 Admit Type: Outpatient Age: 78 Gender: Male Note Status: Finalized Procedure: Upper GI endoscopy Indications: Dysphagia, Follow-up of gastro-esophageal reflux disease Providers: Vijay Alvarez MD Patient Profile: This is a 78 year old male. Refer to note in patient chart for documentation of history and physical. Patient has symptoms of acute dysphagia. Referring Physician: Vijay Alvarez MD (Referring MD), Jenae Meneses MD (Referring MD) Medicines: Midazolam 3 mg IV, Fentanyl 50 micrograms IV Complications: No immediate complications. Requesting Provider: Procedure: Pre-Anesthesia Assessment: - Prior to the procedure, a History and Physical was performed, and patient medications and allergies were reviewed. The patient is competent. The risks and benefits of the procedure and the sedation options and risks were discussed with the patient. All questions were answered and informed consent was obtained. Patient identification and proposed procedure were verified by the physician and the nurse in the procedure room. Mental Status Examination: alert and oriented. Respiratory Examination: clear to auscultation. Prophylactic Antibiotics: The patient does not require prophylactic antibiotics. Prior Anticoagulants: The patient has taken no anticoagulant or antiplatelet agents. ASA Grade Assessment: II - A patient with mild systemic disease. After reviewing the risks and benefits, the patient was deemed in satisfactory condition to undergo the procedure. The anesthesia plan was to use moderate sedation / analgesia (conscious sedation). Immediately prior to administration of medications, the patient was re-assessed for adequacy to receive sedatives. The heart rate, respiratory rate, oxygen saturations, blood pressure, adequacy of pulmonary ventilation, and response to care were monitored throughout the procedure. The physical status of the patient was re-assessed after the procedure. After obtaining informed consent, the endoscope was passed under direct vision. Throughout the procedure, the patient's blood pressure, pulse, and oxygen saturations were monitored continuously. The Endoscope was introduced through the mouth, and advanced to the jejunum. The upper GI endoscopy was accomplished without difficulty. The patient tolerated the procedure well. Moderate Sedation: Moderate (conscious) sedation was personally administered by the endoscopist. The following parameters were monitored: oxygen saturation, heart rate, blood pressure, and response to care. Total physician intraservice time was 8 minutes. The administration of moderate sedation was initiated at 13:35 PM. Findings: The examined jejunum was normal. The examined duodenum was normal. Localized mild inflammation characterized by erosions and erythema was found in the gastric antrum. Biopsies were taken with a cold forceps for histology. Multiple small sessile polyps with no bleeding and no stigmata of recent bleeding were found in the gastric fundus. Biopsies were taken with a cold forceps for histology. Mildly severe esophagitis with no bleeding was found in the lower third of the esophagus. Biopsies were taken with a cold forceps for histology. The middle third of the esophagus was normal. Biopsies were taken with a cold forceps for histology. Impression: - Normal examined jejunum. - Normal examined duodenum. - Gastritis. Biopsied. - Multiple gastric polyps. Biopsied. - Mildly severe reflux esophagitis with no bleeding. Biopsied. - Normal middle third of esophagus. Biopsied. Recommendation: - Discharge patient (more content not included)... PROVATION [facility] Radiology [facility]narrative) [facility] - CoagulationOrde red By: Bea Pan on 11-06-2023 INR Coag (Bld) [Relative time] 3.0 {INR} [facility] PT Coag (PPP) [Time] 30.7 s 11.7-14.9 [facility] Basophil percentageOrdered B y: Bea Pan on 10-24-2023 Bilirubin [Mass/Vol] 0.70 mg/dL 0.20-1.00 [facility] Comment on above: For patients on eltr ombopag therapy, use of Dimension [place] TBIL is not recommended. Cholesterol [Mass/Vol] 276 mg/dL <200 [facility] Comment on above: <200 mg/dL Desirable 200-240 mg/dL Borderline >240 mg/dL High Risk Protein [Mass/Vol] 6.8 g/dL 6.4-8.2 [facility] Triglyceride [Mass/Vol] 319 mg/dL <199 [facility] Comment on above: The drugs N-Acetylcy steine and Metamizole may falsely depress this assay.Serum Triglycerides Reference Interval Normal <150 mg/dL Borderline high 150 - 199 mg/dL High 200 - 499 mg/dL Very High > or = 500 mg/dL Direct bilirubinOrdered By: Bea Pan on 10-24-2023 Bilirubin.direct [Mass/Vol] 0.11 mg/dL 0.00-0.30 [facility] - Chemistry and C hemistry - challengeOrdered By: Bea Pan on 10-24-2023 ALP [Catalytic activity/Vol] 81 U/L 45-117 [facility] ALT [Catalytic activity/Vol] 32 U/L 16-61 [facility] Cholesterol in HDL [Mass/Vol] 43 mg/dL >40 [facility] Comment on above: The drugs N-Acetylcy steine and Metamizole may falsely depress this assay. Reference Range HDL <40 mg/dL Low HDL Cholesterol HDL >or= 60 mg/dL High HDL Cholesterol Cholesterol in LDL [Mass/Vol] 169 mg/dL 0-130 [facility] Globulin (S) [Mass/Vol] 3.3 g/dL 2.2-4.2 [facility] No Panel InformationOrdered By: Bea Pan on 10-24-2023 VLDL Cholesterol 64 mg/dL 5-40 [facility] Thin prep Papanicolaou smear with manual screeningOrdered By: Bea Pan on 10-24-2023 Thin prep Papanicolaou smear with manual screening 3.5 g/dL 3.2-5.0 [facility] Thin prep Papanicolaou smear with manual screening 22 U/L 15-37 [facility] - CoagulationOrde red By: Bea Pan on 10-02-2023 INR Coag (Bld) [Relative time] 3.0 {INR} [facility] PT Coag (PPP) [Time] 31.2 s 11.7-14.9 [facility] Basophil percentageOrdered B y: Negra Meneses on 09-25-2023 Bilirubin [Mass/Vol] 1.00 mg/dL 0.20-1.00 [facility] Comment on above: For patients on eltr ombopag therapy, use of Dimension [place] TBIL is not recommended. Chloride [Moles/Vol] 108 mmol/L 98-107 [facility] Glucose [Mass/Vol] 110 mg/dL 74-106 [facility] Comment on above: Fasting Glucose resu lt from 100 to 125 mg/dL suggests IMPAIRED HOMEOSTASIS per A.D.A. criteria. Potassium [Moles/Vol] 4.4 mmol/L 3.5-5.1 [facility] Protein [Mass/Vol] 6.6 g/dL 6.4-8.2 [facility] Sodium [Moles/Vol] 142 mmol/L 136-145 [facility] - Chemistry and C hemistry - challengeOrdered By: Negra Meneses on 09-25-2023 Albumin/Globulin [Mass ratio] 1.2 {ratio} 0.9-2.4 [facility] ALP [Catalytic activity/Vol] 84 U/L 45-117 [facility] ALT [Catalytic activity/Vol] 27 U/L 16-61 [facility] CO2 [Moles/Vol] 28.0 mmol/L 21.0-32.0 [facility] Globulin (S) [Mass/Vol] 3.0 g/dL 2.2-4.2 [facility] Urea nitrogen/Creatinine [Mass ratio] 16.8 mg/mg 10-20 [facility] No Panel InformationOrdered By: Negra Meneses on 09-25-2023 Estimated GFR (MDRD) Amer 64 mL/min >60 [facility] Comment on above: GFR Calc Estimated GFR (MDRD) Non-Af Amer 53 mL/min >60 [facility] Comment on above: Non- GFR Calc Serum or plasma calcium basil urement (mass/volume)Ordered By: Negra Meneses on 09-25-2023 Calcium [Mass/Vol] 8.9 mg/dL 8.5-10.1 [facility] Serum or plasma creatinine m easurement (mass/volume)Ordered By: Negra Meneses on 09-25-2023 Creatinine [Mass/Vol] 1.37 mg/dL 0.70-1.30 [facility] Comment on above: The validity of the calculated GFR & GFRAA in patients over 70 years has not been determined. Clinical correlation is essential. Serum or plasma urea nitroge n measurement (mass/volume)Ordered By: Negra Meneses on 09-25-2023 Urea nitrogen [Mass/Vol] 23 mg/dL 7-18 [facility] Thin prep Papanicolaou smear with manual screeningOrdered By: Negra Meneses on 09-25-2023 Thin prep Papanicolaou smear with manual screening 3.6 g/dL 3.2-5.0 [facility] Thin prep Papanicolaou smear with manual screening 19 U/L 15-37 [facility] Thin prep Papanicolaou smear with manual screening 6 5-15 [facility] Laboratory - CoagulationOrde red By: Bea Pan on 09-18-2023 INR Coag (Bld) [Relative time] 2.4 {INR} [facility] PT Coag (PPP) [Time] 25.9 s 11.7-14.9 [facility] Laboratory - CoagulationOrde red By: Bea Pan on 09-04-2023 INR Coag (Bld) [Relative time] 1.8 {INR} [facility] PT Coag (PPP) [Time] 21.1 s 11.7-14.9 [facility] No Panel Informationon 08-22 Influenza Types A,B Rapid (Clinic) Negative [facility] POC SARS CoV-2 Antigen Positive [facility] Laboratory - CoagulationOrde red By: Bea Pan on 08-07-2023 PT Coag (PPP) [Time] 17.3 s 11.7-14.9 [facility] Platelet poor plasma interna tional normalized ratio (INR)Ordered By: Bea Pan on 08-07-2023 INR Coag (PPP) [Relative time] 1.4 {INR} [facility] Basophil percentageOrdered B y: Bea Pan on 07-17-2023 Bilirubin [Mass/Vol] 0.70 mg/dL 0.20-1.00 [facility] Comment on above: For patients on eltr ombopag therapy, use of Dimension [place] TBIL is not recommended. Cholesterol [Mass/Vol] 257 mg/dL <200 [facility] Comment on above: <200 mg/dL Desirable 200-240 mg/dL Borderline >240 mg/dL High Risk Protein [Mass/Vol] 6.9 g/dL 6.4-8.2 [facility] Triglyceride [Mass/Vol] 428 mg/dL <199 [facility] Comment on above: The drugs N-Acetylcy steine and Metamizole may falsely depress this assay. TRIGLYCERIDE IS GREATER THAN 400 mg/dL. LDL RESULT IS INVALID AND WILL NOT BE REPORTED.Serum Triglycerides Reference Interval Normal <150 mg/dL Borderline high 150 - 199 mg/dL High 200 - 499 mg/dL Very High > or = 500 mg/dL Direct bilirubinOrdered By: Bea Pan on 07-17-2023 Bilirubin.direct [Mass/Vol] 0.11 mg/dL 0.00-0.30 [facility] Laboratory - Chemistry and C hemistry - challengeOrdered By: Bea Pan on 07-17-2023 ALP [Catalytic activity/Vol] 90 U/L 45-117 [facility] ALT [Catalytic activity/Vol] 30 U/L 16-61 [facility] Globulin (S) [Mass/Vol] 3.6 g/dL 2.2-4.2 [facility] Serum or plasma albumin basil urement (mass/volume)Ordered By: Bea Pan on 07-17-2023 Albumin [Mass/Vol] 3.3 g/dL 3.2-5.0 [facility] Serum or plasma cholesterol in HDL measurement (mass/volume)Ordered By: Bea Pan on 07-17-2023 Cholesterol in HDL [Mass/Vol] 35 mg/dL >40 [facility] Comment on above: The drugs N-Acetylcy steine and Metamizole may falsely depress this assay. Reference Range HDL <40 mg/dL Low HDL Cholesterol HDL >or= 60 mg/dL High HDL Cholesterol Serum or plasma cholesterol in VLDL measurement (mass/volume)Ordered By: Bea Pan on 07-17-2023 Cholesterol in VLDL [Mass/Vol] [facility] Comment on above: Test not performed Serum or plasma low density lipoprotein (LDL) cholesterol measurement (mass/volume)Ordered By: Bea Pan on 07-17-2023 Cholesterol in LDL [Mass/Vol] [facility] Comment on above: Test not performed Thin prep Papanicolaou smear with manual screeningOrdered By: Bea Pan on 07-17-2023 Thin prep Papanicolaou smear with manual screening 26 U/L 15-37 [facility] Comment on above: Moderate Hemolysis, Result may be falsely increased. INR in Blood by Coagulation assayOrdered By: Bea Pan on 05-29-2023 INR Coag (Bld) [Relative time] 2.7 {INR} [facility] Laboratory - CoagulationOrde red By: Bea Pan on 05-29-2023 PT Coag (PPP) [Time] 29.0 s 11.7-14.9 [facility] INR in Blood by Coagulation assayOrdered By: Bea Pan on 04-27-2023 INR Coag (Bld) [Relative time] 2.1 {INR} [facility] Laboratory - CoagulationOrde red By: Bea Pan on 04-27-2023 PT Coag (PPP) [Time] 23.9 s 11.7-14.9 [facility] INR in Blood by Coagulation assayOrdered By: Bea Pan on 04-03-2023 INR Coag (Bld) [Relative time] 2.4 {INR} [facility] Laboratory - CoagulationOrde red By: Bea Pan on 04-03-2023 PT Coag (PPP) [Time] 26.6 s 11.7-14.9 [facility] Basophil percentageOrdered B y: Bea Pan on 03-28-2023 Cholesterol [Mass/Vol] 274 mg/dL <200 [facility] Comment on above: <200 mg/dL Desirable 200-240 mg/dL Borderline >240 mg/dL High Risk Triglyceride [Mass/Vol] 402 mg/dL <199 [facility] Comment on above: The drugs N-Acetylcy steine and Metamizole may falsely depress this assay. TRIGLYCERIDE IS GREATER THAN 400 mg/dL. LDL RESULT IS INVALID AND WILL NOT BE REPORTED.Serum Triglycerides Reference Interval Normal <150 mg/dL Borderline high 150 - 199 mg/dL High 200 - 499 mg/dL Very High > or = 500 mg/dL Serum or plasma cholesterol in HDL measurement (mass/volume)Ordered By: Bea Pan on 03-28-2023 Cholesterol in HDL [Mass/Vol] 42 mg/dL >40 [facility] Comment on above: The drugs N-Acetylcy steine and Metamizole may falsely depress this assay. Reference Range HDL <40 mg/dL Low HDL Cholesterol HDL >or= 60 mg/dL High HDL Cholesterol Serum or plasma cholesterol in VLDL measurement (mass/volume)Ordered By: Bea Pan on 03-28-2023 Cholesterol in VLDL [Mass/Vol] [facility] Comment on above: Test not performed Serum or plasma low density lipoprotein (LDL) cholesterol measurement (mass/volume)Ordered By: Bea Pan on 03-28-2023 Cholesterol in LDL [Mass/Vol] [facility] Comment on above: Test not performed Basophil percentageOrdered B y: Bea Pan on 03-06-2023 Bilirubin [Mass/Vol] 0.50 mg/dL 0.20-1.00 [facility] Comment on above: For patients on eltr ombopag therapy, use of Dimension [place] TBIL is not recommended. Cholesterol [Mass/Vol] 261 mg/dL <200 [facility] Comment on above: <200 mg/dL Desirable 200-240 mg/dL Borderline >240 mg/dL High Risk Protein [Mass/Vol] 6.8 g/dL 6.4-8.2 [facility] Triglyceride [Mass/Vol] 522 mg/dL <199 [facility] Comment on above: The drugs N-Acetylcy steine and Metamizole may falsely depress this assay. TRIGLYCERIDE IS GREATER THAN 400 mg/dL. LDL RESULT IS INVALID AND WILL NOT BE REPORTED.Serum Triglycerides Reference Interval Normal <150 mg/dL Borderline high 150 - 199 mg/dL High 200 - 499 mg/dL Very High > or = 500 mg/dL Direct bilirubinOrdered By: Bea Pan on 03-06-2023 Bilirubin.direct [Mass/Vol] 0.07 mg/dL 0.00-0.30 [facility] INR in Blood by Coagulation assayOrdered By: Bea Pan on 03-06-2023 INR Coag (Bld) [Relative time] 3.0 {INR} [facility] Laboratory - Chemistry and C hemistry - challengeOrdered By: Bea Pan on 03-06-2023 ALP [Catalytic activity/Vol] 86 U/L 45-117 [facility] ALT [Catalytic activity/Vol] 28 U/L 16-61 [facility] Globulin (S) [Mass/Vol] 3.5 g/dL 2.2-4.2 [facility] Laboratory - CoagulationOrde red By: Bea Pan on 03-06-2023 PT Coag (PPP) [Time] 31.2 s 11.7-14.9 [facility] Serum or plasma albumin basil urement (mass/volume)Ordered By: Bea Pan on 03-06-2023 Albumin [Mass/Vol] 3.3 g/dL 3.2-5.0 [facility] Serum or plasma cholesterol in HDL measurement (mass/volume)Ordered By: Bea Pan on 03-06-2023 Cholesterol in HDL [Mass/Vol] 36 mg/dL >40 [facility] Comment on above: The drugs N-Acetylcy steine and Metamizole may falsely depress this assay. Reference Range HDL <40 mg/dL Low HDL Cholesterol HDL >or= 60 mg/dL High HDL Cholesterol Serum or plasma cholesterol in VLDL measurement (mass/volume)Ordered By: Bea Pan on 03-06-2023 Cholesterol in VLDL [Mass/Vol] [facility] Comment on above: Test not performed Serum or plasma low density lipoprotein (LDL) cholesterol measurement (mass/volume)Ordered By: Bea Pan on 03-06-2023 Cholesterol in LDL [Mass/Vol] [facility] Comment on above: Test not performed Thin prep Papanicolaou smear with manual screeningOrdered By: Bea Pan on 03-06-2023 Thin prep Papanicolaou smear with manual screening 22 U/L 15-37 [facility] Comment on above: Moderate Hemolysis, Result may be falsely increased. INR in Blood by Coagulation assayOrdered By: Bea Pan on 02-06-2023 INR Coag (Bld) [Relative time] 2.5 {INR} [facility] Laboratory - CoagulationOrde red By: Bea Pan on 02-06-2023 PT Coag (PPP) [Time] 27.4 s 11.7-14.9 [facility] INR in Blood by Coagulation assayOrdered By: Bea Pan on 12-27-2022 INR Coag (Bld) [Relative time] 2.5 {INR} [facility] Laboratory - CoagulationOrde red By: Bea Pan on 12-27-2022 PT Coag (PPP) [Time] 26.8 s 11.7-14.9 [facility] INR in Blood by Coagulation assayOrdered By: Bea Pan on 11-25-2022 INR Coag (Bld) [Relative time] 3.3 {INR} [facility] Laboratory - CoagulationOrde red By: Bea Pan on 11-25-2022 PT Coag (PPP) [Time] 34.0 s 11.7-14.9 [facility] No Panel InformationOrdered By: Dr. Fournier on 11-15-2022 Prostate Specific Antigen Total 0.65 ng/mL 0.0-4.0 [facility] Comment on above: This test was perfor med using the TPSA assay method [facility] the[facility]. Values obtained with differentassay methods cannot be used interchangably.When changing PSA assays in the course of monitoring apatient, additional sequential testing should be carriedout to confirm baseline values. INR in Blood by Coagulation assayOrdered By: Bea Pan on 11-04-2022 INR Coag (Bld) [Relative time] 3.0 {INR} [facility] Laboratory - CoagulationOrde red By: Bea Pan on 11-04-2022 PT Coag (PPP) [Time] 31.7 s 11.7-14.9 [facility] INR in Blood by Coagulation assayOrdered By: Bea Pan on 10-07-2022 INR Coag (Bld) [Relative time] 5.6 {INR} [facility] Laboratory - CoagulationOrde red By: Bea Pan on 10-07-2022 PT Coag (PPP) [Time] 50.5 s 11.7-14.9 [facility] Basophil percentageon 2021 Bilirubin [Mass/Vol] 1.10 mg/dL 0.20-1.00 [facility] Work Phone: Comment on above: For patients on eltr ombopag therapy, use of Dimension [place] TBIL is not recommended. Cholesterol [Mass/Vol] 234 mg/dL <200 [facility] Work Phone: Comment on above: <200 mg/dL Desirable 200-240 mg/dL Borderline >240 mg/dL High Risk Protein [Mass/Vol] 7.1 g/dL 6.4-8.2 [facility] Work Phone: Triglyceride [Mass/Vol] 286 mg/dL <199 [facility] Work Phone: Comment on above: The drugs N-Acetylcy steine and Metamizole may falsely depress this assay.Serum Triglycerides Reference Interval Normal <150 mg/dL Borderline high 150 - 199 mg/dL High 200 - 499 mg/dL Very High > or = 500 mg/dL Direct bilirubinon 2 Bilirubin.direct [Mass/Vol] 0.22 mg/dL 0.00-0.30 [facility] Work Phone: Laboratory - Chemistry and C hemistry - challengeon 03-01-2022 ALP [Catalytic activity/Vol] 82 U/L 45-117 [facility] Work Phone: ALT [Catalytic activity/Vol] 33 U/L 16-61 [facility] Work Phone: Globulin (S) [Mass/Vol] 3.5 g/dL 2.2-4.2 [facility] Work Phone: Serum or plasma albumin basil urement (mass/volume)on 03-01-2022 Albumin [Mass/Vol] 3.6 g/dL 3.2-5.0 [facility] Work Phone: Serum or plasma cholesterol in HDL measurement (mass/volume)on 03-01-2022 Cholesterol in HDL [Mass/Vol] 47 mg/dL >40 [facility] Work Phone: Comment on above: The drugs N-Acetylcy steine and Metamizole may falsely depress this assay. Reference Range HDL <40 mg/dL Low HDL Cholesterol HDL >or= 60 mg/dL High HDL Cholesterol Serum or plasma cholesterol in VLDL measurement (mass/volume)on 03-01-2022 Cholesterol in VLDL [Mass/Vol] 57 mg/dL 5-40 [facility] Work Phone: Serum or plasma low density lipoprotein (LDL) cholesterol measurement (mass/volume)on 03-01-2022 Cholesterol in LDL [Mass/Vol] 130 mg/dL 0-130 [facility] Work Phone: Thin prep Papanicolaou smear with manual screeningon 03-01-2022 Thin prep Papanicolaou smear with manual screening 23 U/L 15-37 [facility] Work Phone: No Panel Informationon 02-07 Prostate Specific Antigen Total 0.56 ng/mL 0.0-4.0 [facility] Work Phone: Comment on above: This test was perfor med using the TPSA assay method for the[facility]. Values obtained with differentassay methods cannot be used interchangably.When changing PSA assays in the course of monitoring apatient, additional sequential testing should be carriedout to confirm baseline values. Absolute lymphocyte counton 01-31-2022 Lymphocytes Auto (Unsp spec) [#/Vol] 0.75 10*3/uL 0.83-4.51 [facility] Work Phone: [phone] Basophil percentageon 2021 Basophils/100 WBC (Bld) 1.2 % 0-1 [facility] Work Phone: [phone] Chloride [Moles/Vol] 109 mmol/L 98-107 [facility] Work Phone: [phone] Eosinophils/100 WBC (Bld) 4.6 % 0-5 [facility] Work Phone: [phone] Glucose [Mass/Vol] 107 mg/dL 74-106 [facility] Work Phone: [phone] Comment on above: Fasting Glucose resu lt from 100 to 125 mg/dL suggests IMPAIRED HOMEOSTASIS per A.D.A. criteria. Neutrophils (Bld) [#/Vol] 2.6 10*3/uL 2.0-7.7 [facility] Work Phone: Neutrophils/100 WBC (Bld) 63.1 % 47-70 [facility] Work Phone: Potassium [Moles/Vol] 4.3 mmol/L 3.5-5.1 [facility] Work Phone: [phone] Sodium [Moles/Vol] 140 mmol/L 136-145 [facility] Work Phone: [phone] WBC (Bld) [#/Vol] 4.2 10*3/uL 4.4-11.0 [facility] Work Phone: Blood erythrocytes count (nu mber/volume)on 01-31-2022 RBC (Bld) [#/Vol] 4.57 10*6/uL 4.6-6.2 [facility] Work Phone: Blood hemoglobin measurement (mass/volume)on 01-31-2022 Hemoglobin (Bld) [Mass/Vol] 14.4 g/dL 13.0-16.5 [facility] Work Phone: Blood lymphocytes/100 leukoc yteson 01-31-2022 Lymphocytes/100 WBC (Bld) 18.1 % 19-41 [facility] Work Phone: Blood monocytes/100 leukocyt eson 01-31-2022 Monocytes/100 WBC (Bld) 12.8 % 0-10 [facility] Work Phone: Blood platelet mean volumeon 01-31-2022 Platelet mean volume (Bld) [Entitic vol] 9.1 fL 6.2-12.0 [facility] Work Phone: Determination of erythrocyte mean corpuscular volume (MCV)on 01-31-2022 MCV (RBC) [Entitic vol] 92.3 fL 80-94 [facility] Work Phone: Hematocrit Auto (Bld) [Volum e fraction]on 01-31-2022 Hematocrit (Bld) [Volume fraction] 42.2 % 40-54 [facility] Work Phone: Laboratory - Chemistry and C hemistry - challengeon 01-31-2022 CO2 [Moles/Vol] 28.0 mmol/L 21.0-32.0 [facility] Work Phone: Magnesium [Mass/Vol] 2.1 mg/dL 1.6-2.6 [facility] Work Phone: Urea nitrogen/Creatinine [Mass ratio] 17.3 mg/mg 10-20 [facility] Work Phone: [phone] Laboratory - Hematology and Cell countson 01-31-2022 Erythrocyte distribution width (RBC) [Entitic vol] 43.9 fL 35.1-43.9 [facility] Work Phone: Erythrocyte distribution width (RBC) [Ratio] 13.0 % 11.6-14.6 [facility] Work Phone: Immature granulocytes/100 WBC (Bld) 0.200 % 0.0-0.9 [facility] Work Phone: Comment on above: IG% - Immature Granu locytes (promyelocytes, myelocytes and metamyelocytes) > 1% indicates that a LEFT SHIFT is Present. MCH (RBC) [Entitic mass] 31.5 pg 27.0-32.0 [facility] Work Phone: Nucleated RBC/100 WBC (Bld) [Ratio] 0 % 0-5 [facility] Work Phone: MCHC Auto (RBC) [Mass/Vol]on 01-31-2022 MCHC (RBC) [Mass/Vol] 34.1 g/dL 32-36 [facility] Work Phone: No Panel Informationon 01-31 Troponin I High Sensitivity 4 pg/mL 3.0-78.0 [facility] Work Phone: Comment on above: Please Note: New Valerie t Units and Gender Specific Reference Ranges. For more information see Policy Stat Procedure [place] High Sensitivity Troponin (TNIH) and attachments. Estimated Creatinine Clearance Calc 48.03 ml/min [facility] Work Phone: Estimated GFR (MDRD) Amer 67 mL/min >60 [facility] Work Phone: Comment on above: GFR Calc Estimated GFR (MDRD) Non-Af Amer 55 mL/min >60 [facility] Work Phone: Comment on above: Non- GFR Calc Platelets bldon 01-31-2022 Platelets (Bld) [#/Vol] 148 10*3/uL 150-450 [facility] Work Phone: Serum or plasma calcium basil urement (mass/volume)on 01-31-2022 Calcium [Mass/Vol] 9.1 mg/dL 8.5-10.1 [facility] Work Phone: Serum or plasma creatinine m easurement (mass/volume)on 01-31-2022 Creatinine [Mass/Vol] 1.33 mg/dL 0.70-1.30 [facility] Work Phone: Comment on above: The validity of the calculated GFR & GFRAA in patients over 70 years has not been determined. Clinical correlation is essential. Serum or plasma urea nitroge n measurement (mass/volume)on 01-31-2022 Urea nitrogen [Mass/Vol] 23 mg/dL 01-24 [facility] Work Phone: Thin prep Papanicolaou smear with manual screeningon 01-31-2022 Thin prep Papanicolaou smear with manual screening 3 - [facility] Work Phone: Vital Signs Date Time Vital Sign Value Performing Clinician Facility 02-24-2025 07:52-0400 Body height 180.[address] Negra Meneses MD Work Phone: [facility] 02-24-2025 07:52-0400 Body mass index (BMI) [Ratio] 27.1 kg/m2 Dr. Negra Meneses MD Work Phone: [facility] 02-24-2025 07:52-0400 Body temperature 98.3 [degF] Dr. Negra Meneses MD Work Phone: [facility] 02-24-2025 07:52-0400 Body weight 88.[address] Negra Meneses MD Work Phone: [facility] 02-24-2025 07:52-0400 Diastolic blood pressure 70 mm[Hg] Dr. Negra Meneses MD Work Phone: [facility] 02-24-2025 07:52-0400 Heart rate 83 /min Dr. Negra Meneses MD Work Phone: [facility] 02-24-2025 07:52-0400 SaO2% (BldA) [Mass fraction] 99 % Dr. Negra Meneses MD Work Phone: [facility] 02-24-2025 07:52-0400 Systolic blood pressure 132 mm[Hg] Dr. Negra Meneses MD Work Phone: [facility] 09-25-2024 08:12-0400 Body mass index (BMI) [Ratio] 27.3 kg/m2 Dr. Negra Meneses MD Work Phone: [facility] 09-25-2024 08:12-0400 Body temperature 97.1 [degF] Dr. Negra Meneses MD Work Phone: [facility] 09-25-2024 08:12-0400 Body weight 88.[address] Negra Meneses MD Work Phone: [facility] 09-25-2024 08:12-0400 Diastolic blood pressure 74 mm[Hg] Dr. Negra Meneses MD Work Phone: [facility] 09-25-2024 08:12-0400 Heart rate 68 /min Dr. Negra Meneses MD Work Phone: [facility] 09-25-2024 08:12-0400 Respiratory rate 16 /min Dr. Negra Meneses MD Work Phone: [facility] 09-25-2024 08:12-0400 SaO2% (BldA) [Mass fraction] 97 % Dr. Negra Meneses MD Work Phone: [facility] 09-25-2024 08:12-0400 Systolic blood pressure 116 mm[Hg] Dr. Negra Meneses MD Work Phone: [facility] 11-28-2023 14:27-0400 Diastolic blood pressure 85 mm[Hg] Vijay Alvarez MD Work Phone: [facility] 11-28-2023 14:27-0400 Heart rate 66 /min Vijay Alvarez MD Work Phone: [facility] 11-28-2023 14:27-0400 Respiratory rate 16 /min Vijay Alvarez MD Work Phone: [facility] 11-28-2023 14:27-0400 SaO2% (BldA) [Mass fraction] 98 % Vijay Alvarez MD Work Phone: [facility] 11-28-2023 14:27-0400 Systolic blood pressure 149 mm[Hg] Vijay Alvarez MD Work Phone: [facility] 11-28-2023 12:38-0400 Body mass index (BMI) [Ratio] 27.49 kg/m2 Vijay Alvarez MD Work Phone: [facility] 11-28-2023 12:38-0400 Body temperature 96.69 [degF] Vijay Alvarez MD Work Phone: [facility] 11-28-2023 12:38-0400 Body weight 89.4 kg Vijay Alvarez MD Work Phone: [facility] 10-27-2023 08:39-0400 Body temperature 97.11 [degF] Vijay Alvarez MD Work Phone: [facility] 10-27-2023 08:39-0400 Body weight 89.36 kg Vijay Alvarez MD Work Phone: [facility] 10-27-2023 08:39-0400 Diastolic blood pressure 62 mm[Hg] Vijay Alvarez MD Work Phone: [facility] 10-27-2023 08:39-0400 Heart rate 61 /min Vijay Alvarez MD Work Phone: [facility] 10-27-2023 08:39-0400 SaO2% (BldA) [Mass fraction] 97 % Vijay Alvarez MD Work Phone: [facility] 10-27-2023 08:39-0400 Systolic blood pressure 122 mm[Hg] Vijay Alvarez MD Work Phone: [facility] 09-25-2023 08:00-0400 Body height 180.[address] Negra Meneses Work Phone: [facility] 09-25-2023 08:00-0400 Body mass index (BMI) [Ratio] 26.7 kg/m2 Dr. Negra Meneses Work Phone: [facility] 09-25-2023 08:00-0400 Body temperature 97.5 [degF] Dr. Negra Meneses Work Phone: [facility] 09-25-2023 08:00-0400 Body weight 87.[address] Negra Meneses Work Phone: [facility] 09-25-2023 08:00-0400 Diastolic blood pressure 82 mm[Hg] Dr. Negra Meneses Work Phone: [facility] 09-25-2023 08:00-0400 Heart rate 54 /min Dr. Negra Meneses Work Phone: [facility] 09-25-2023 08:00-0400 Respiratory rate 16 /min Dr. Negra Meneses Work Phone: [facility] 09-25-2023 08:00-0400 SaO2% (BldA) [Mass fraction] 99 % Dr. Negra Meneses Work Phone: [facility] 09-25-2023 08:00-0400 Systolic blood pressure 126 mm[Hg] Dr. Negra Meneses Work Phone: [facility] 08-30-2023 13:31-0500 Body height 180.[address] Negra Meneses Work Phone: [facility] 08-30-2023 13:31-0500 Body mass index (BMI) [Ratio] 27.3 kg/m2 Dr. Negra Meneses Work Phone: [facility] 08-30-2023 13:31-0500 Body temperature 97.5 [degF] Dr. Negra Meneses Work Phone: [facility] 08-30-2023 13:31-0500 Body weight 88.[address] Negra Meneses Work Phone: [facility] 08-30-2023 13:31-0500 Diastolic blood pressure 74 mm[Hg] Dr. Negra Meneses Work Phone: [facility] 08-30-2023 13:31-0500 Heart rate 55 /min Dr. Negra Meneses Work Phone: [facility] 08-30-2023 13:31-0500 Respiratory rate 16 /min Dr. Negra Meneses Work Phone: [facility] 08-30-2023 13:31-0500 SaO2% (BldA) [Mass fraction] 99 % Dr. Negra Meneses Work Phone: [facility] 08-30-2023 13:31-0500 Systolic blood pressure 116 mm[Hg] Dr. Negra Meneses Work Phone: [facility] 08-22-2023 08:46-0500 Body mass index (BMI) [Ratio] 27.8 kg/m2 Dr. Negra Meneses Work Phone: [facility] 08-22-2023 08:46-0500 Body temperature 97.8 [degF] Dr. Negra Meneses Work Phone: [facility] 08-22-2023 08:46-0500 Body weight 90.[address] Negra Meneses Work Phone: [facility] 08-22-2023 08:46-0500 Diastolic blood pressure 76 mm[Hg] Dr. Negra Meneses Work Phone: [facility] 08-22-2023 08:46-0500 Heart rate 107 /min Dr. Negra Meneses Work Phone: [facility] 08-22-2023 08:46-0500 Respiratory rate 16 /min Dr. Negra Meneses Work Phone: [facility] 08-22-2023 08:46-0500 SaO2% (BldA) [Mass fraction] 99 % Dr. Negra Meneses Work Phone: [facility] 08-22-2023 08:46-0500 Systolic blood pressure 110 mm[Hg] Dr. Negra Meneses Work Phone: [facility] 07-26-2023 11:41-0500 Body mass index (BMI) [Ratio] 29.2 kg/m2 Dr. Negra Meneses Work Phone: [facility] 07-26-2023 11:41-0500 Body temperature 97.5 [degF] Dr. Negra Meneses Work Phone: [facility] 07-26-2023 11:41-0500 Body weight 92.[address] Negra Meneses Work Phone: [facility] 07-26-2023 11:41-0500 Diastolic blood pressure 82 mm[Hg] Dr. Negra Meneses Work Phone: [facility] 07-26-2023 11:41-0500 Heart rate 56 /min Dr. Negra Meneses Work Phone: [facility] 07-26-2023 11:41-0500 Respiratory rate 16 /min Dr. Negra Meneses Work Phone: [facility] 07-26-2023 11:41-0500 SaO2% (BldA) [Mass fraction] 98 % Dr. Negra Meneses Work Phone: [facility] 07-26-2023 11:41-0500 Systolic blood pressure 124 mm[Hg] Dr. Negra Meneses Work Phone: [facility] 06-19-2023 07:42-0500 Body temperature 97.6 [degF] Dr. Negra Meneses Work Phone: [facility] 06-19-2023 07:42-0500 Diastolic blood pressure 84 mm[Hg] Dr. Negra Meneses Work Phone: [facility] 06-19-2023 07:42-0500 Heart rate 62 /min Dr. Negra Meneses Work Phone: [facility] 06-19-2023 07:42-0500 Respiratory rate 12 /min Dr. Negra Meneses Work Phone: [facility] 06-19-2023 07:42-0500 SaO2% (BldA) [Mass fraction] 95 % Dr. Negra Meneses Work Phone: [facility] 06-19-2023 07:42-0500 Systolic blood pressure 160 mm[Hg] Dr. Negra Meneses Work Phone: [facility] 05-26-2023 08:13-0500 Body temperature 98 [degF] Dr. Negra Meneses Work Phone: [facility] 05-26-2023 08:13-0500 Diastolic blood pressure 81 mm[Hg] Dr. Negra Meneses Work Phone: [facility] 05-26-2023 08:13-0500 Heart rate 60 /min Dr. Negra Meneses Work Phone: [facility] 05-26-2023 08:13-0500 Respiratory rate 15 /min Dr. Negra Meneses Work Phone: [facility] 05-26-2023 08:13-0500 SaO2% (BldA) [Mass fraction] 96 % Dr. Negra Meneses Work Phone: [facility] 05-26-2023 08:13-0500 Systolic blood pressure 124 mm[Hg] Dr. Negra Meneses Work Phone: [facility] 04-28-2023 10:11-0400 Body height 178.[address] Negra Meneses Work Phone: [facility] 04-28-2023 10:11-0400 Body mass index (BMI) [Ratio] 28.2 kg/m2 Dr. Negra Meneses Work Phone: [facility] 04-28-2023 10:11-0400 Body weight 89.[address] Negra Meneses Work Phone: [facility] 04-28-2023 10:11-0400 Diastolic blood pressure 76 mm[Hg] Dr. Negra Meneses Work Phone: [facility] 04-28-2023 10:11-0400 Heart rate 50 /min Dr. Negra Meneses Work Phone: [facility] 04-28-2023 10:11-0400 Respiratory rate 14 /min Dr. Negra Meneses Work Phone: [facility] 04-28-2023 10:11-0400 Systolic blood pressure 124 mm[Hg] Dr. Negra Meneses Work Phone: [facility] 01-26-2023 12:02-0400 Body height 178.[address] Negra Meneses Work Phone: [facility] 01-26-2023 12:02-0400 Body mass index (BMI) [Ratio] 28 kg/m2 Dr. Negra Meneses Work Phone: [facility] 01-26-2023 12:02-0400 Body temperature 98 [degF] Dr. Negra Meneses Work Phone: [facility] 01-26-2023 12:02-0400 Body weight 89.[address] Negra Meneses Work Phone: [facility] 01-26-2023 12:02-0400 Diastolic blood pressure 66 mm[Hg] Dr. Negra Meneses Work Phone: [facility] 01-26-2023 12:02-0400 Heart rate 59 /min Dr. Negra Meneses Work Phone: [facility] 01-26-2023 12:02-0400 Respiratory rate 14 /min Dr. Negra Meneses Work Phone: [facility] 01-26-2023 12:02-0400 SaO2% (BldA) [Mass fraction] 97 % Dr. Negra Meneses Work Phone: [facility] 01-26-2023 12:02-0400 Systolic blood pressure 132 mm[Hg] Dr. Negra Meneses Work Phone: [facility] 09-22-2022 08:10-0400 Body height 177.[address] Vega Ochoa Work Phone: [facility] 09-22-2022 08:10-0400 Body mass index (BMI) [Ratio] 28.4 kg/m2 Dr. Vega Ochoa Work Phone: [facility] 09-22-2022 08:10-0400 Body temperature 97.2 [degF] Dr. Vega Ochoa Work Phone: [facility] 09-22-2022 08:10-0400 Body weight 89.[address] Vega Ochoa Work Phone: [facility] 09-22-2022 08:10-0400 Diastolic blood pressure 64 mm[Hg] Dr. Vega Ochoa Work Phone: [facility] 09-22-2022 08:10-0400 Heart rate 62 /min Dr. Vega Ochoa Work Phone: [facility] 09-22-2022 08:10-0400 Respiratory rate 16 /min Dr. Vega Ochoa Work Phone: [facility] 09-22-2022 08:10-0400 SaO2% (BldA) [Mass fraction] 97 % Dr. Vega Ochoa Work Phone: [facility] 09-22-2022 08:10-0400 Systolic blood pressure 114 mm[Hg] Dr. Vega Ochoa Work Phone: [facility] 03-01-2022 09:08-0400 Body height 177.[address] Vega Ochoa Work Phone: [facility] Work Phone: 03-01-2022 09:08-0400 Body mass index (BMI) [Ratio] 27.8 kg/m2 Dr. Vega Ochoa Work Phone: [facility] Work Phone: 03-01-2022 09:08-0400 Body weight 87.[address] Vega Ochoa Work Phone: [facility] Work Phone: 03-01-2022 09:08-0400 Diastolic blood pressure 67 mm[Hg] Dr. Vega Ochoa Work Phone: [facility] Work Phone: 03-01-2022 09:08-0400 Heart rate 54 /min Dr. Vega Ochoa Work Phone: [facility] Work Phone: 03-01-2022 09:08-0400 Respiratory rate 16 /min Dr. Vega Ochoa Work Phone: [facility] Work Phone: 03-01-2022 09:08-0400 Systolic blood pressure 114 mm[Hg] Dr. Vega Ochoa Work Phone: [facility] Work Phone: 01-31-2022 14:23-0400 Diastolic blood pressure 82 mm[Hg] [facility] Work Phone: 01-31-2022 14:23-0400 Heart rate 51 /min [facility] Work Phone: 01-31-2022 14:23-0400 Respiratory rate 18 /min [facility] Work Phone: 01-31-2022 14:23-0400 SaO2% (BldA) [Mass fraction] 98 % [facility] Work Phone: 01-31-2022 14:23-0400 Systolic blood pressure 137 mm[Hg] [facility] Work Phone: 01-31-2022 09:52-0400 Body height 177.8 cm [facility] Work Phone: 01-31-2022 09:52-0400 Body mass index (BMI) [Ratio] 27.2 kg/m2 [facility] Work Phone: 01-31-2022 09:52-0400 Body temperature 96.6 [degF] [facility] Work Phone: 01-31-2022 09:52-0400 Body weight 86.18 kg [facility] Work Phone: Encounters Encounter Date Encounter Type Care Provider Facility Start: 04-15-2025 End: 04-15-2025 ambulatory Galindo Fournier Facility:[facility] Start: 03-26-2025 End: 03-26-[address] Negra Meneses MD Work Phone: -Radiology [facility] Start: 03-26-2025 End: 03-26-[address] Nito Cardenas MD -Radiology [facility] Work Phone: Start: 03-26-2025 End: 03-26-2025 ambulatory Nito Cardenas Facility:[facility] Start: 02-24-2025 End: 02-24-2025 Patient encounter procedure Garret Poole [place] [facility] Work Phone: Start: 02-24-2025 End: 02-24-[address] Negra Meneses MD Work Phone: [facility] Start: 02-04-2025 End: 03-20-2025 Follow-up encounter Sukhdev Tillman Work Phone: Podiatry Start: 02-03-2025 End: 02-03-2025 ambulatory VEGA OCHOA Facility:[facility] Start: 01-09-2025 End: 01-09-2025 Patient encounter procedure Sukhdev Tillman Work Phone: Podiatry Comment on above: Onychodystrophy (Freda nabil Dx); Diminished pulses in lower extremity Start: 01-09-2025 End: 01-09-2025 ambulatory SUKHDEV TILLMAN Facility:[facility] Start: 11-19-2024 ambulatory Negra Meneses Facility :[facility] Start: 10-09-2024 End: 10-09-2024 Patient encounter procedure Vijay Alvarez MD Work Phone: General Surgery Comment on above: Esophagitis; Gastroesophageal reflux disease without esophagitis; Encounter for follow-up examination after completed treatment for conditions other than malignant neoplasm Start: 10-09-2024 End: 10-09-2024 ambulatory VIJAY ALVAREZ Facility:[facility] Start: 10-07-2024 End: 10-07-2024 ambulatory Negra Meneses Facility:[facility] Start: 09-25-2024 End: 09-25-[address] Negra Meneses MD Work Phone: [facility] Work Phone: Start: 09-25-2024 End: 09-25-[address] Negra Meneses MD -Laboratory, [place] Start: 09-25-2024 End: 09-25-[address] Negra Meneses MD -[facility] Work Phone: Start: 09-25-2024 End: 09-25-[address] Negra Meneses MD [facility] Start: 09-25-2024 End: 09-25-2024 ambulatory Negra Meneses Facility:[facility] Start: 09-25-2024 End: 09-25-2024 ambulatory Negra Meneses Facility:[facility] Start: 08-10-2024 ambulatory Bea Pan [employer] Facility :[facility] Start: 07-16-2024 End: 07-16-2024 Discharged Recurring Bea Pan [employer] MANAGER-C -Laboratory Work Phone: Start: 07-16-2024 End: 07-16-2024 ambulatory Bea Pan [employer] MA[employer] Facility:[facility] Start: 06-24-2024 End: 06-24-2024 Discharged Recurring Bea Pan [employer] SH[employer] MANAGER-C -Laboratory Work Phone: Start: 06-24-2024 End: 06-24-2024 ambulatory Bea Pan [employer] MANAGER Facility:[facility] Start: 06-04-2024 End: 06-08-2024 Discharged Recurring Bea Pan [employer]INO SH[employer] MANAGER-C -Laboratory Work Phone: Start: 06-04-2024 End: 06-08-2024 ambulatory Bea Pan [employer]INO SH[employer] MANAGER Facility:[facility] Start: 05-10-2024 ambulatory Bea Pan [employer]INO SH[employer] MANAGER Facility :[facility] Start: 05-10-2024 End: 05-10-2024 ambulatory Bea Pan [employer]INO [employer] MANAGER Facility:[facility] Start: 12-22-2023 Refill Vijay landers MD Work Phone: Ambulatory Surgery Comment on above: Med Change Request Start: 12-13-2023 Telephone encounter Vijay Alvarez MD Work Phone: General Surgery Comment on above: Results (Endoscopy r esults) Start: 12-01-2023 Telephone encounter Vijay Alvarez MD Work Phone: General Surgery Comment on above: Results Start: 11-28-2023 End: 11-28-2023 Subsequent hospital visit by physician Vijay Alvarez MD Work Phone: Ambulatory Surgery Comment on above: Dysphagia, unspecifi ed type [R13.10] Start: 11-06-2023 End: 11-07-[address] Negra Meneses Work Phone: [facility] Work Phone: Start: 11-06-2023 End: 11-07-[address] Negra Meneses Work Phone: [facility]-Laboratory Work Phone: Start: 11-01-2023 Telephone encounter Vijay Alvarez MD Work Phone: General Surgery Comment on above: Results; Barium Swal low Start: 10-27-2023 End: 05-15-2024 Telephone encounter Vijay Alvarez MD Work Phone: General Surgery Comment on above: 12/12/2023 EGD ASC; wa itlist; Release Of Medical Records Start: 10-27-2023 End: 10-27-2023 Patient encounter procedure Vijay Alvarez MD Work Phone: General Surgery Comment on above: Dysphagia, unspecifi ed type (Primary Dx) Start: 10-02-2023 End: 10-08-[address] Negra Meneses Work Phone: [facility] Work Phone: Start: 10-02-2023 End: 10-08-[address] [facility] Start: 10-02-[address] Erasmo [facility] Start: 09-26-2023 End: 09-26-[address] Negra Meneses Work Phone: [facility] Work Phone: Start: 09-26-2023 End: 09-26-[address] Negra Meneses Work Phone: [facility]-Radiology, [facility] Work Phone: Start: 09-25-2023 End: 09-25-[address] Negra Meneses Work Phone: [facility] Work Phone: Start: 09-25-2023 End: 09-25-[address] Negra Meneses Work Phone: [facility] Work Phone: Start: 09-18-[address] Erasmo Men[facility]es [facility] Start: 09-04-2023 End: 09-07-[address] Negra Meneses Work Phone: [facility] Work Phone: Start: 09-04-2023 End: 09-07-[address] [facility] Start: 08-31-2023 End: 08-31-[address] Negra Meneses Work Phone: [facility] Start: 08-30-2023 End: 08-30-[address] Negra Meneses Work Phone: [facility] Work Phone: Start: 08-22-2023 End: 08-22-[address] Negra Meneses Work Phone: [facility] Work Phone: Start: 08-07-2023 End: 08-07-[address] Neg[facility] Start: 07-26-2023 End: 07-26-[address] Negra Meneses Work Phone: [facility] Work Phone: Start: 06-19-2023 End: 06-19-[address] Negra Meneses Work Phone: [facility] Work Phone: Start: 05-29-2023 End: 06-08-[address] Negra Meneses Work Phone: [facility] Work Phone: Start: 05-29-2023 End: 06-08-[address] Neg[facility] Start: 05-26-2023 End: 05-26-[address] Negra Meneses Work Phone: [facility] Work Phone: Start: 04-28-2023 End: 04-28-[address] Negra Meneses Work Phone: [facility] Work Phone: Start: 04-27-2023 End: 04-27-[address] Neg[facility] Start: 04-03-2023 End: 04-03-[address] Negra Meneses Work Phone: [facility] Work Phone: Start: 04-03-2023 End: 04-03-[address] Neg[facility] Men[facility] Start: 03-06-2023 End: 03-06-[address] Negra Meneses Work Phone: [facility] Work Phone: Start: 03-06-2023 End: 03-06-[address] Neg[facility] Men[facility] Start: 02-06-2023 End: 02-06-[address] Negra Meneses Work Phone: [facility] Work Phone: Start: 02-06-2023 End: 02-06-[address] Neg[facility] Men[facility] Start: 01-26-2023 End: 01-26-[address] Negra Meneses Work Phone: [facility] Work Phone: Start: 12-27-2022 End: 12-27-[address] Vega Ochoa Work Phone: [facility] Work Phone: Start: 12-27-2022 End: 12-27-[address] Vega Ochoa [facility] Start: 11-25-2022 End: 11-25-[address] Vega Ochoa Work Phone: [facility] Work Phone: Start: 11-25-2022 End: 11-25-[address] Vega Ochoa [facility] Start: 11-15-2022 End: 11-15-[address] Vega Ochoa Work Phone: [facility] Work Phone: Start: 11-15-2022 End: 11-15-[address] [facility] Ochoa [facility] Start: 11-04-2022 End: 11-06-[address] [facility]ega Ochoa [facility] Start: 10-07-2022 End: 10-07-[address] Vega Ochoa Work Phone: [facility] Work Phone: Start: 10-07-2022 End: 10-07-[address] [facility]ega Ochoa [facility] Start: 09-22-2022 End: 09-22-2022 Encounter for general adult medical examination without abnormal findings Dr. Vega Ochoa Work Phone: [facility] Start: 09-22-2022 End: 09-22-[address] Vega Ochoa Work Phone: [facility] Start: 03-01-2022 End: 03-01-[address] Vega Ochoa Work Phone: [facility] Work Phone: Start: 03-01-2022 End: 03-01-[address] Vega Ochoa Work Phone: [facility] Start: 02-07-2022 End: 02-07-2022 Patient encounter procedure [facility]-Pulmonary Services/Neurology Start: 01-31-2022 End: 01-31-2022 Emergency department patient visit [facility]-Emergency Department Start: 01-26-2022 End: 01-26-2022 Patient encounter procedure [facility]-Radiology, [facility] Procedures Date Procedure Procedure Detail Performing Clinician Start: 03-26-2025 Radiologic exam esophagus double contrast study Dr. Negra Meneses MD Work Phone: Start: 11-28-2023 Esophagogastroduodenoscopy transoral diagnostic Vijay Alvarez MD Work Phone: Start: 09-26-[address] Negra means Work Phone: Start: 08-31-2023 Plain chest X-ray Dr. Negra Meneses Work Phone: Start: 01-31-2022 Plain chest X-ray Start: 01-26-2022 Radiography of esophagus Plan of Treatment Date Care Activity Detail Author Start: 03-10-2025 Influenza vaccination Influenza Vacc ine (#1) [facility] Start: 03-02-2025 Covid-19 Vaccine ( season) Covid-19 Vaccine ( season) [facility] Start: 02-03-2025 End: 02-03-2025 Patient encounter procedure 02/03/2025 8:00 AM EDT Office Visit [facility] [address] [place] [address] Onychodystrophy [L60.3]; Diminished pulses in lower extremity [R09.89] [facility] Comment on above: Onychodystrophy [L60 .3]; Diminished pulses in lower extremity [R09.89] Start: 09-25-2024 Patient referral [facility] Work Phone: Start: 07-10-2024 Advance Directive Discussion Advance Directive Discussion [facility] Start: 03-10-2024 Covid-19 Vaccine ( season) Covid-19 Vaccine () [facility] Start: 03-10-2024 Influenza vaccination Influenza Vacc ine (#1) [facility] Start: 12-12-2023 End: 12-12-2023 Patient encounter procedure 12/12/2023 12:00 PM EDT Appointment Ambulatory Surgery [address] [place] [address] Vijay Alvarez MD [address] [address] Dysphagia, unspecified type [R13.10] Ambulatory Surgery Comment on above: Dysphagia, unspecifi ed type [R13.10] Start: 09-25-2023 Patient referral [facility] Work Phone: Start: 09-07-2023 Covid-19 Vaccine ( season) Covid-19 Vaccine () [facility] Start: 07-10-2023 Advance Directive Discussion Advance Directive Discussion [facility] Start: 07-10-2023 Behavioral Health Screening Behavioral Health Screening [facility] Start: 06-19-2023 Patient referral [facility] Work Phone: Start: 09-22-2022 Patient referral [facility] Work Phone: Start: 01-31-2022 [facility] Work Phone: Start: 2019 RSV Vaccine (1 - 1-d ose 75+ series) RSV Vaccine (1 - 1-dose 75+ series) [facility] Start: 10-08-2018 Medicare Annual Well ness Visit Medicare Annual Wellness Visit [facility] Start: 07-15-2017 Diabetes Screening Diabetes Screenin g [facility] Start: 07-15-2015 Complete blood count Hemoglobin/Harsh tocrit [facility] Start: 07-15-2015 Creatinine measurement Serum Creatin ine [facility] Start: 05-09-2014 Shingrix Vaccine (2 of 3) [place] grix Vaccine (2 of 3) [facility] Start: 2004 RSV Vaccine (1 - 1-d ose 60+ series) RSV Vaccine (1 - 1-dose 60+ series) [facility] Start: 1963 Urine microalbumin profile DTaP,Tdap,Td Vaccine (1 - Tdap) [facility] Start: 1962 Annual PCP Team Customer Trainer von Disease Visit Annual PCP Team Chronic Disease Visit [facility] Start: 1962 Anxiety Screening Anxiety Screening [facility] Start: 1962 Depression Screening Depression Scre ening [facility] End: 10-26-2024 EGD DIAGNOSTIC EGD DIAGNOSTIC Endoscopy Routine Dysphagia, unspecified type 1 Occurrences starting 10/27/2023 until 10/26/2024 [facility] Work Phone: Comment on above: 1 Occurrences starti ng 10/27/2023 until 10/26/2024 Microorganism identi fied in Unspecified specimen by Culture FUNGAL CULTURE AND SMEAR - DERMAL (HAIR, SKIN AND NAIL) Microbiology Routine Onychodystrophy Ordered: 01/09/2025 [facility] Work Phone: Comment on above: Ordered: 01/09/2025 Patient Education ED Chest Pain, Uncertain Cause ED Hiatal Hernia [facility] Work Phone: Patient referral [facility] Work Phone: SURGICAL PATHOLOGY [facility] Work Phone: Comment on above: Release Upon Rolo fine for 1 Occurrences starting 11/28/2023, 1 completed End: 01-09-2026 US.doppler Extremity arteries - bilateral for physiologic artery study [facility] Vascular Lab Routine Onychodystrophy Diminished pulses in lower extremity 1 Occurrences starting 01/09/2025 until 01/09/2026 [facility] Comment on above: 1 Occurrences starti ng 01/09/2025 until 01/09/2026 [facility] Immunizations Immunization Date Immunization Notes Care Provider Nellie francois 09-02-2024 influenza, high dose seasonal, preservative-free Dr. Negra Meneses MD Work Phone: [facility] 09-02-2024 Pfizer Covid-19 (Comirnaty) Dr. Negra Meneses MD Work Phone: [facility] 09-02-2024 influenza virus vacc ine, unspecified formulation Sukhdev Tillman Work Phone: [facility] 09-25-2023 pneumococcal polysaccharide vaccine, [address] Negra Meneses Work Phone: [facility] 05-09-2023 Covid (Spikevax) Dr. Negra Meneses Work Phone: [facility] 04-17-2023 Influenza High-Dose Quadrivalent Dr. Negra Meneses Work Phone: [facility] 04-17-2023 influenza virus vacc ine, unspecified formulation Vijay Alvarez MD Work Phone: [facility] 05-03-2022 Influenza High-Dose Quadrivalent Dr. Negra Meneses Work Phone: [facility] 05-03-2022 Influenza, high dose seasonal Dr. Negra Meneses MD Work Phone: [facility] 05-03-2022 influenza, high dose seasonal, preservative-free Dr. Vega Ochoa Work Phone: [facility] 02-21-2022 Covid (Moderna) Dr. Vega calix Work Phone: [facility] 06-02-2021 Covid (Moderna) Dr. Vega calix Work Phone: [facility] 09-30-2020 Covid (Moderna) Dr. Vega calix Work Phone: [facility] 09-02-2020 Covid (Moderna) Dr. Vega calix Work Phone: [facility] 03-12-2020 Influenza High-Dose Quadrivalent Dr. Negra Meneses Work Phone: [facility] 03-12-2020 Influenza, high dose seasonal Dr. Negra Meneses MD Work Phone: [facility] 03-12-2020 influenza, high dose seasonal, preservative-free Dr. Vega Ochoa Work Phone: [facility] 05-06-2015 influenza, injectabl e, quadrivalent, preservative free Dr. Negra Meneses Work Phone: [facility] 05-06-2015 influenza, seasonal, injectable Dr. Vega Ochoa Work Phone: [facility] 05-06-2015 pneumococcal conjuga te vaccine, [address] Vega Ochoa Work Phone: [facility] 03-14-2014 zoster vaccine, live Dr. Skip Ochoa Work Phone: [facility] 06-08-2009 influenza virus vacc ine, unspecified formulation Vijay Alvarez MD Work Phone: [facility] 07-11-2008 influenza virus vacc ine, unspecified formulation Vijay Alvarez MD Work Phone: [facility] 09-06-2006 pneumococcal polysaccharide vaccine, 23 valent Vijay Alvarez MD Work Phone: [facility] Payers Date Payer Category Payer Private Health Insurance [employer] S [employer] [id number] 2024 Medicare [id number] 2024 Self-pay [id number] 2023 Unknown [id number] 2019 Unknown [employer] [place] [employer] SUPPLE[employer] [id number] 2019-Present [phone] [id number] [employer] [place] [address] Indemnity [id number] 2013 Unknown [id number] 2009 Medicare [id number] 2009 Medicare [id number] Unknown [employer] [place] [id number] Unknown [id number]. 462 Unknown [id number]. 462 Unknown [id number]. 462 Unknown [id number]. 462 Unknown [id number] [id number]. 462 Unknown [id number]. 462 Unknown [id number] [id number]. 462 Unknown [id number] [id number]. 462 Unknown [id number] [id number]. 462 Unknown [id number] 2.16.840.1.480489.3.579.2. 462 Unknown [id number] [id number]. 462 Unknown [id number] [id number]. 462 Unknown [id number]. 462 Social History Date Type Detail Facility Start: 01-31-2022 End: 09-25-2023 Tobacco smoking status TXIS Unknown if ever smoked [facility] Start: 04-09-2019 Spouse/ Signif icant Other [facility] Start: 1945 Sex Assigned At Male [facility] Start: 10-27-2023 End: 09-26-2024 Tobacco smoking status TXIS Never smoked tobacco [facility] Start: 10-27-2023 Tobacco use and exposure Smokeless tobacco non-user [facility] Start: 10-27-2023 End: 01-09-2025 Alcohol intake Current drinker of alcohol (finding) [facility] Start: 10-27-2023 End: 01-09-2025 Alcohol intake [facility] Start: 10-27-2023 End: 01-09-2025 Tobacco use panel [facility] Start: 06-10-2012 National Score (1-10 0), lower number is lower risk 55 [facility] Start: 1945 Sex Assigned At Not on file [facility] Start: 10-02-2024 Sex Male (finding) [facility] Sexual Orientation Heterosexual (finding) [facility] Functional Status Date Assessment Result Facility 11-20-2014 Are you deaf, or do you have serious difficulty hearing No 11/20/2014 10:32 AM Emily Salgado RN No [facility] 11-20-2014 Are you blind, or do you have serious difficulty seeing, even when wearing glasses No 11/20/2014 10:32 AM EDT Emily Lewis RN No [facility] 11-20-2014 Do you have serious difficulty walking or climbing stairs No 11/20/2014 10:32 AM EDT Emily Lewis RN No [facility] 11-20-2014 Do you have difficul ty dressing or bathing No 11/20/2014 10:32 AM EDT Emily Lewis RN No [facility] 11-20-2014 Because of a physica l, mental, or emotional condition, do you have difficulty doing errands alone such as visiting a physician's office or shopping No 11/20/2014 10:32 AM EDT Emily Lewis RN No [facility] Mental Status Date Assessment Result Facility 01-31-2022 Cognitive function Level Of Cons ciousness Awake;Alert;Appropriate [facility] Work Phone: 11-20-2014 Because of a physica l, mental, or emotional condition, do you have serious difficulty concentrating, remembering, or making decisions No 11/20/2014 10:32 AM EDT Emily Lewis RN No [facility] Clinical Notes 01-30-2009 to 03-26-2025 Telephone Encounter - Lachelle Don - 03/20/2025 8:48 AM EDTTelephone Encounter - Lachelle Don - 03/20/2025 8:48 AM EDT Note Date & Type Note Facility 03-26-2025 Radiology Diagnostic study note [facility] Imaging Services [address], [place] [address] Esophagus Dual Contrast MR#: [id number] Acct: [id number] Name: ORIN CANSECO Rep #: [id number] : 1945 M 79 From: Velasquez Ann MD PCP: Dr. Negra Meneses MD Status: REG CLI Study:Esophagus Dual Contrast Date of Exam: 03/26/25 Exam# [id number] Ordering Dr: Nito Cardenas MD PROCEDURE: ESOPHAGUS DUAL CONTRAST 03/26/2025 REASON FOR EXAM: DYSPHONIA TECHNIQUE: ESOPHAGUS DUAL CONTRAST FLUOROSCOPIC TIME: 32 seconds. FLUOROGRAPHIC IMAGES: 46 Radiation dose: 5.4 mGy COMPARISON: None FINDINGS: The patient ingested barium. Multiple fluoroscopic images were obtained. No evidence of esophageal obstruction. No mass lesion is seen. There is no evidence of gastroesophageal reflux. The patient ingested a 12 mm tablet the barium. The tablet passed through the gastroesophageal junction without any problem. RAD/Esophagus Dual Contrast IMPRESSION: Unremarkable air-contrast esophagram barium swallow. Reading Location: [place] [address] CC: Dr. Negra Meneses MD; Dr. Nito Cardenas MD ~ Telephony Engineer: Signed [facility] 03-20-2025 Telephone encounter Note 2 nd attempt left message and sent my chart message to return call to arrange appointment. [facility] 03-20-2025 Miscellaneous Notes 2 nd attempt left message and sent my chart message to return call to arrange appointment. 1st attempt left message to return call to arrange appt with Dr Tillman to discuss medications see my chart request documented in this encounter [facility] 03-19-2025 Telephone encounter Note 1st attempt left message to return call to arrange appt with Dr Tillman to discuss medications see my chart request [facility] 02-24-2025 Evaluation note Diagnosis Onset Date Resolution Atopic dermatitis acute February 24, 2025 7:56am [facility] Work Phone: 1(127) 345-572807-03-2025 NoteHNO ID: [id number] Author: SUKHDEV TILLMAN, ? Service: ? Author Type: Physician Type: Progress Notes Filed: 01/09/2025 09:03 Note Text: Subjective Orin Canseco is an 79-year-old male with a history of atrial fibrillation, presenting with a deformed right great toenail. Onychodystrophy: - Deformed right great toenail x16-17 years. - Onset after kicking a tire. - Worsening over the years. - No associated pain or discomfort, regardless of footwear. - Concerns about potential growth causing problems to the underlying bone. Atrial Fibrillation: - History of atrial fibrillation with heart rate up to 200 bpm. - Underwent ablation procedure. - Previously on Coumadin, but no longer taking any anticoagulants. Cardiovascular: (+) bilateral lower leg swelling, (+) bilateral lower leg coldness Musculoskeletal: (-) toe pain Skin: (+) right great toenail deformity PAST MEDICAL HISTORY Diagnosis Date Aneurysm, thoracic aortic Asthma (HCC) Atrial fibrillation (HCC) Patient does not feel that this was an accurate diagnosis. BPH (benign prostatic hyperplasia) COVID-19 Esophageal reflux Gout Mixed hyperlipidemia Other and unspecified hyperlipidemia Prostate cancer (HCC) Recurrent sinusitis SVT (supraventricular tachycardia) (HCC) Testicular mass Current Outpatient Medications Medication Sig Dispense Refill omeprazole (PRILOSEC) 40 mg capsule TAKE 1 CAPSULE BY MOUTH EVERY DAY 90 capsule 1 multivit-minerals/ferrous fum (MULTI VITAMIN ORAL) Take by mouth. codeine-guaiFENesin (ROBITUSSIN AC) 10-100 mg/5 mL syrup EVERY 8 HOURS NEEDED (Patient not taking: Reported on 10/27/2023) metoprolol succinate ER (TOPROL XL) 50 mg 24 hr tablet .COMPLEX montelukast (SINGULAIR) 10 mg tablet AT BEDTIME (Patient not taking: Reported on 10/27/2023) warfarin (COUMADIN) 1 mg tablet .COMPLEX (Patient not taking: Reported on 10/09/2024) warfarin (COUMADIN) 5 mg tablet DAILY (Patient not taking: Reported on 10/09/2024) tamsulosin ER (FLOMAX) 0.4 mg cp24 Take 0.4 mg by mouth. (Patient not taking: Reported on 06/07/2021) metoprolol tartrate, short acting, (LOPRESSOR) 50 mg tablet Take 1 tablet by mouth. At onset of fibrillation 30 tablet 5 flecainide (TAMBOCOR) 100 mg tablet Take by mouth. Take two tablets if atrial fibrillation persists longer than one hour (Patient taking differently: Take 50 mg by mouth two times a day.) 30 tablet 3 aspirin 81 mg ORAL chewable tablet Take 1 tablet by mouth every other day. (Patient not taking: Reported on 06/07/2021 ) 0 No current facility-administered medications for this visit. Family History Problem Relation Age of Onset None Mother old age Alzheimer's Disease Father None Sister COPD Brother Alcohol/Drug Brother None Brother None Brother None Brother Objective There were no vitals taken for this visit. - Cardiovascular: Dorsalis pedis and posterior tibial pulses faintly palpable bilaterally; capillary refill time <5 seconds; skin temperature warm to cool bilaterally; color changes noted in both lower extremities with foot in dependent position; multiple varicose veins noted bilaterally. - Skin: No open sores or calluses noted bilaterally. - Neurological: Protective sensation mostly intact bilaterally. - Musculoskeletal: - Right Great Toe: - Nail dystrophic, discolored, deformed, and angulated laterally; incurvation noted along medial nail border. - Left Great Toe: - Nail slightly discolored and dystrophic; no significant incurvation noted. Assessment AND Plan 1. 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 - Differential diagnosis includes onychomycosis and trauma. - Trimmed the affected toenail and obtained a sample for fungal culture; results may take up to a month. - Discussed treatment options including topical antifungal medication, oral Lamisil for 3 months with liver function monitoring, and potential nail removal with chemical matrixectomy. - Patient understands and agrees with the plan. 2. Diminished pulses in lower extremity (R09.89) - Dorsalis pedis and posterior tibial pulses are faintly palpable bilaterally; capillary refill time is less than 5 seconds. - Ordered a pulse volume recording (PVR) to assess arterial circulation in the lower extremities. - Will review PVR results to ensure adequate blood flow before considering nail removal. Recording using Synker software for draft documentation of the visit was discussed with the patient/authorized cash posting representative; all questions welcomed and answered. Patient/authorized cash posting representative agreed to proceed Sukhedv Tillman [facility]07-03-2025 History of Present illness Narrative* Sukhdev Tillman - 01/09/2025 9:02 AM EDT Subjective Orin Canseco is an 79-year-old male with a history of atrial fibrillation, presenting with a deformed right great toenail. Onychodystrophy: - Deformed right great toenail x16-17 years. - Onset after kicking a tire. - Worsening over the years. - No associated pain or discomfort, regardless of footwear. - Concerns about potential growth causing problems to the underlying bone. Atrial Fibrillation: - History of atrial fibrillation with heart rate up to 200 bpm. - Underwent ablation procedure. - Previously on Coumadin, but no longer taking any anticoagulants. Cardiovascular: (+) bilateral lower leg swelling, (+) bilateral lower leg coldness Musculoskeletal: (-) toe pain Skin: (+) right great toenail deformity PAST MEDICAL HISTORY Diagnosis Date Aneurysm, thoracic aortic Asthma (HCC) Atrial fibrillation (HCC) Patient does not feel that this was an accurate diagnosis. BPH (benign prostatic hyperplasia) COVID-19 Esophageal reflux Gout Mixed hyperlipidemia Other and unspecified hyperlipidemia Prostate cancer (HCC) Recurrent sinusitis SVT (supraventricular tachycardia) (HCC) Testicular mass Current Outpatient Medications Medication Sig Dispense Refill omeprazole (PRILOSEC) 40 mg capsule TAKE 1 CAPSULE BY MOUTH EVERY DAY 90 capsule 1 multivit-minerals/ferrous fum (MULTI VITAMIN ORAL) Take by mouth. codeine-guaiFENesin (ROBITUSSIN AC) 10-100 mg/5 mL syrup EVERY 8 HOURS NEEDED (Patient not taking: Reported on 10/27/2023) metoprolol succinate ER (TOPROL XL) 50 mg 24 hr tablet .COMPLEX montelukast (SINGULAIR) 10 mg tablet AT BEDTIME (Patient not taking: Reported on 10/27/2023) warfarin (COUMADIN) 1 mg tablet .COMPLEX (Patient not taking: Reported on 10/09/2024) warfarin (COUMADIN) 5 mg tablet DAILY (Patient not taking: Reported on 10/09/2024) tamsulosin ER (FLOMAX) 0.4 mg cp24 Take 0.4 mg by mouth. (Patient not taking: Reported on 06/07/2021) metoprolol tartrate, short acting, (LOPRESSOR) 50 mg tablet Take 1 tablet by mouth. At onset of fibrillation 30 tablet 5 flecainide (TAMBOCOR) 100 mg tablet Take by mouth. Take two tablets if atrial fibrillation persistslonger than one hour (Patient taking differently: Take 50 mg by mouth two times a day.) 30 tablet 3 aspirin 81 mg ORAL chewable tablet Take 1 tablet by mouth every other day. (Patient not taking: Reported on 06/07/2021 ) 0 No current facility-administered medications for this visit. Family History Problem Relation Age of Onset None Mother old age Alzheimer's Disease Father None Sister COPD Brother Alcohol/Drug Brother None Brother None Brother None Brother Objective There were no vitals taken for this visit. - Cardiovascular: Dorsalis pedis and posterior tibial pulses faintly palpable bilaterally; capillary refill time <5 seconds; skin temperature warm to cool bilaterally; color changes noted in both lower extremities with foot in dependent position; multiple varicose veins noted bilaterally. - Skin: No open sores or calluses noted bilaterally. - Neurological: Protective sensation mostly intact bilaterally. - Musculoskeletal: - Right Great Toe: - Nail dystrophic, discolored, deformed, and angulated laterally; incurvation noted along medial nail border. - Left Great Toe: - Nail slightly discolored and dystrophic; no significant incurvation noted. Assessment & Plan 1. 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 - Differential diagnosis includes onychomycosis and trauma. - Trimmed the affected toenail and obtained a sample for fungal culture; results may take up to a month. - Discussed treatment options including topical antifungal medication, oral Lamisil for 3 months with liver function monitoring, and potential nail removal with chemical matrixectomy. - Patient understands and agrees with the plan. 2. Diminished pulses in lower extremity (R09.89) - Dorsalis pedis and posterior tibial pulses are faintly palpable bilaterally; capillary refill time is less than 5 seconds. - Ordered a pulse volume recording (PVR) to assess arterial circulation in the lower extremities. - Will review PVR results to ensure adequate blood flow before considering nail removal. Recording using Synker software for draft documentation of the visit was discussed with the patient/authorized cash posting representative; all questions welcomed and answered. Patient/authorized cash posting representative agreed to proceed Sukhdev Tillman DPM * Jenna Dye RN - 01/09/2025 8:28 AM EDT Patient presents with: Right Foot - New, Nail Check Left Foot - New, Nail Check Patient presents for dystrophic nails. Bilateral big toenails are thick and discolored. Right growsat an angle. States that they have been this way for years. Has tried OTC antifungal medication without relief. Right toenail had trauma many years ago (kicked a car tire). [facility] Instructions* Patient Instructions* Sukhdev Tillman - 01/09/2025 8:58 AM EDT - Your right big toenail was trimmed short today to reduce pressure and prevent it from digging into the skin. - A fungal culture was taken from the toenail; results can take up to one month. We will contact you when the lab report is available. - A vascular circulation study (PVR) for your lower legs and feet has been ordered; our staff will schedule this test to confirm adequate blood flow before considering any nail?removal procedure. - Continue keeping your toenail trimmed very short at home to avoid further angulation or ingrowth. - Once we have the culture and circulation results, we will review whether to start oral antifungalmedication or discuss removing the toenail based on those findings. [facility]25 NoteHNO ID: [id number] Author: JENNA DYE RN Service: ? Author Type: Registered Nurse Type: Progress Notes Filed: 01/09/2025 09:03 Note Text: Patient presents with: Right Foot - New, Nail Check Left Foot - New, Nail Check Patient presents for dystrophic nails. Bilateral big toenails are thick and discolored. Right grows at an angle. States that they have been this way for years. Has tried OTC antifungal medication without relief. Right toenail had trauma many years ago (kicked a car tire).[facility]04-05-2025 Instructions* Patient Instructions* Vijay Alvarez MD - 10/12/2024 8:53 AM EDT We discussed your esophagitis and reflux symptoms: - You are currently taking Omeprazole (Prilosec) 40 mg daily, which was increased from 20 mg due toworsening symptoms. It may take 48-72 hours for the medication to reach effective blood levels and provide symptom relief. Please continue taking 40 mg daily as prescribed. - If your symptoms improve on the 40 mg dose within a week, we will not need to perform another endoscopy at this time. However, if your symptoms do not improve or worsen, we will schedule another scope to evaluate your esophagus further. - Reflux is a condition where stomach contents flow back into the esophagus, causing irritation. Omeprazole reduces acid production, which helps your esophagus heal and reduces symptoms, but it does not eliminate reflux itself. - Avoid lying down immediately after eating or drinking alcohol, as this can worsen reflux symptoms. - Alcohol can irritate the stomach lining and esophagus. While occasional consumption, such as one glass of wine, is unlikely to cause significant harm, regular alcohol use can increase irritation. We discussed your history of Mann s esophagitis concerns: - Previous biopsies of your esophagus have not shown Mann s esophagitis, but we remain vigilant due to the irritation seen during past scopes. Chronic esophagitis can increase the risk of Mann s esophagitis, which is a risk factor for esophageal cancer. - If Mann s esophagitis is ever diagnosed, regular monitoring with endoscopy every 2-3 years will be necessary. Next steps: - Continue taking Omeprazole 40 mg daily and monitor your symptoms. If your symptoms do not improvewithin a week, please contact our office to discuss scheduling another endoscopy. - Maintain lifestyle modifications to reduce reflux, such as avoiding lying down after meals and limiting alcohol intake. - If you experience new or worsening symptoms, such as difficulty swallowing, significant weight loss, or persistent chest pain, please contact our office immediately. Please let us know if you have any questions or concerns. [facility]25 NoteHNO ID: [id number] Author: VIJAY ALVAREZ MD Service: ? Author Type: Physician Type: Progress Notes Filed: 10/12/2024 08:53 Note Text: FOLLOW UP VISIT - ENDOSCOPY NAME: Orin Bridges Talita [facility] NO.: [id number] DATE OF SERVICE: 10/09/2024 : 1945 REFERRING PHYSICIAN: Vega Ochoa MD Orin is a patient I am following for chronic reflux issues. Orin is a 79-year-old male presenting for follow-up of esophagitis and GERD. Orin reports a persistent sensation of congestion and occasional choking while eating, which he notes is more prolonged than his usual seasonal symptoms experienced around and . He describes a sensation of food slowing down when swallowing, suggesting a possible constriction. He has a history of esophagitis and GERD, with previous endoscopies performed in 2019 and on November 28, 2023. Results at that time demonstrated: Impression: - Normal examined jejunum. - Normal examined duodenum. - Gastritis. Biopsied. - Multiple gastric polyps. Biopsied. - Mildly severe reflux esophagitis with no bleeding. Biopsied. - Normal middle third of esophagus. Biopsied. Pathology at that time returned as: FINAL DIAGNOSIS A. Stomach, antrum, biopsy: - Gastric antral body mucosa with no significant histopathologic findings. - No evidence of Helicobacter pylori organisms on KAYCEE stain. B. Esophagus, lower/distal, biopsy: - Squamoglandular mucosa with chronic inflammation. - Negative for intestinal metaplasia and dysplasia. C. Esophagus, mid, biopsy: - Squamous mucosa with focal active esophagitis; see comment. D. Stomach, fundus, polyp, biopsy: - Fundic gland polyp. He has been on omeprazole 20 mg, which was effective until around [place] time. Recently, his symptoms worsened, and his dosage was increased to [address] Saunders. He has been taking the increased dosage since yesterday afternoon and this morning. VITALS: There were no vitals taken for this visit. On examination, the abdomen is benign. Assessment IMPRESSION: Worsening reflux symptoms PLAN: If the patient notes any problems or changes in bowel function, the patient should contact me immediately. Otherwise I recommend follow up endoscopy if increasing his medication up to 40 mg a day does not improve his symptoms. The patient is to call me in 1 to 2 weeks to see if this increase to 40 mg a day has resolved his symptoms.. Diagnoses: (K20.90) Esophagitis (K21.9) Gastroesophageal reflux disease without esophagitis (Z09) Encounter for follow-up examination after completed treatment for conditions other than malignant neoplasm Return to Clinic: The patient is instructed to follow-up with me as needed. Vijay Alvarez [facility]04-05-2025 History of Present illness Narrative* Vijay Alvarez MD - 10/12/2024 8:49 AM EDT FOLLOW UP VISIT - ENDOSCOPY NAME: Orin Bridges Talita [facility] NO.: [id number] DATE OF SERVICE: 10/09/2024 : 1945 REFERRING PHYSICIAN: Vega Ochoa MD Orin is a patient I am following for chronic reflux issues. Orin is a 79-year-old male presenting for follow-up of esophagitis and GERD. Orin reports a persistent sensation of congestion and occasional choking while eating, which he notes is more prolonged than his usual seasonal symptoms experienced around and . Hedescribes a sensation of food slowing down when swallowing, suggesting a possible constriction. He has a history of esophagitis and GERD, with previous endoscopies performed in 2018 and on November 28, 2023. Results at that time demonstrated: Impression: - Normal examined jejunum. - Normal examined duodenum. - Gastritis. Biopsied. - Multiple gastric polyps. Biopsied. - Mildly severe reflux esophagitis with no bleeding. Biopsied. - Normal middle third of esophagus. Biopsied. Pathology at that time returned as: FINAL DIAGNOSIS A. Stomach, antrum, biopsy: - Gastric antral body mucosa with no significant histopathologic findings. - No evidence of Helicobacter pylori organisms on H&E stain. B. Esophagus, lower/distal, biopsy: - Squamoglandular mucosa with chronic inflammation. - Negative for intestinal metaplasia and dysplasia. C. Esophagus, mid, biopsy: - Squamous mucosa with focal active esophagitis; see comment. D. Stomach, fundus, polyp, biopsy: - Fundic gland polyp. He has been on omeprazole 20 mg, which was effective until around [place] time. Recently, his symptoms worsened, and his dosage was increased to [address] Saunders. He has been taking the increased dosage since yesterday afternoon and this morning. VITALS: There were no vitals taken for this visit. On examination, the abdomen is benign. Assessment IMPRESSION: Worsening reflux symptoms PLAN: If the patient notes any problems or changes in bowel function, the patient should contact me immediately. Otherwise I recommend follow up endoscopy if increasing his medication up to 40 mg a day does not improve his symptoms. The patient is to call me in 1 to 2 weeks to see if this increase to 40 mg a day has resolved his symptoms.. Diagnoses: (K20.90) Esophagitis (K21.9) Gastroesophageal reflux disease without esophagitis (Z09) Encounter for follow-up examination after completed treatment for conditions other than malignant neoplasm Return to Clinic: The patient is instructed to follow-up with me as needed. Vijay Alvarez MD documented in this encounterTri[facility] note* Diagnosis Onset Date Resolution Status Admit Date CKD (chronic kidney disease) stage 3, GFR 30-59 ml/min chronic September 25, 2024 7:52am Paroxysmal atrial fibrillation chron ic September 25, 2024 7:52am Chronic sinus complaints noneactive September 25, 2024 7:52am History of prostate cancer noneactiv e September 25, 2024 7:52am Dysphagia noneactive September 25 7:52am Well adult exam noneactive September 7:52am GERD (gastroesophageal reflu x disease) noneactive September 25, 2024 7:52am [facility] Work Phone: 1(194) 457-834206-21-2024 Telephone encounter Note* Telephone Encounter - Lay Mac LPN - 12/29/2023 10:44 AM EDT Patient stopped by office to state he needs this refill so pharmacy can stop calling and harassing him. Patient states he has enough medication but needs this refill so pharmacy can have increase in dosage prescription. Lay Mac LPN December 29, 2023 10:45 AM [facility]06-21-[facility] Miscellaneous Notes* Telephone Encounter - Lay Mac LPN - 12/29/2023 10:44 AM EDT Patient stopped by office to state he needs this refill so pharmacy can stop calling and harassing him. Patient states he has enough medication but needs this refill so pharmacy can have increase in dosage prescription. Lay Mac LPN December 29, 2023 10:45 AM documented in this encounterTri[facility]06-[facility]24 Telephone encounter Note * Telephone Encounter - Lay Mac LPN - 12/13/2023 11:22 AM EDT Pateint called, no answer, no voicemail left. Surgical/ medical history updated, NotesFirstt message sent. Lay Mac LPN December 13, 2023 11:25 AM [facility]06-05-[facility] Miscellaneous Notes* Telephone Encounter - Lay Mac LPN - 12/13/2023 11:22 AM EDT Pateint called, no answer, no voicemail left. Surgical/ medical history updated, mychart message sent. Lay Mac LPN December 13, 2023 11:25 AM documented in this encounterTri[facility]05-[facility]24 Telephone encounter Note * Telephone Encounter - Vijay Alvarez MD - 12/01/2023 7:47 AM EDT FOLLOW UP ENDOSCOPY - RESULTS AND RECOMMENDATIONS NAME: Orin Canseco CLINIC NO.: [id number] : 1945 DATE: December 01, 2023 PRIMARY CARE PROVIDER: Vega Ochoa MD Orin Canseco is a patient referred for endoscopy for worsening dysphagia. The patient is a 78 year old male referred for endoscopy. Orin notes no history of colon complaints. The patient notes the following upper complaints: Orin denies abdominal pain.. Orin notes heartburn. Orin notes dysphagia. Orin notes a history of ulcers/ peptic ulcer disease. Orin has undergone prior endoscopy. I performed upper and lower endoscopy on July 24, 2018. Upper endoscopy demonstrated: Impression: - Normal examined jejunum. - Normal examined duodenum. - Normal antrum. Biopsied. - Multiple gastric polyps. Resected and retrieved. - Normal esophagus. - Non-severe reflux esophagitis. Biopsied. Lower endoscopy demonstrated: Impression: - The entire examined colon is normal on direct and retroflexion views. - No specimens collected. Pathology demonstrated: FINAL DIAGNOSIS 1. Stomach, antrum, biopsy (A) - Oxyntic type gastric mucosa with no diagnostic abnormalities. 2. Stomach, polyp in the fundus, biopsy (B) - Fundic gland polyp, negative for dysplasia. 3. Esophagogastric junction, biopsy (C) - Inflamed oxyntic type gastric mucosa, negative for intestinal metaplasia. - Squamous mucosa with reactive epithelial changes. GUILLERMO/alex 07/26/2018 The patient has been taking Prilosec 20 mg a day. Recently he has seen Dr. Meneses. The patient underwent an esophagram 2 years previously but I understand was unremarkable. He underwent a barium swallow with fluoroscopy on September 26, 2023. This was interpreted as normal barium swallow with prominence of the cricopharyngeus muscle I performed upper endoscopy on November 28, 2023. The patient was found to have: Upper Endoscopy Impression: - Normal examined jejunum. - Normal examined duodenum. - Gastritis. Biopsied. - Multiple gastric polyps. Biopsied. - Mildly severe reflux esophagitis with no bleeding. Biopsied. - Normal middle third of esophagus. Biopsied. Pathology demonstrated: FINAL DIAGNOSIS A. Stomach, antrum, biopsy: - Gastric antral body mucosa with no significant histopathologic findings. - No evidence of Helicobacter pylori organisms on H&E stain. B. Esophagus, lower/distal, biopsy: - Squamoglandular mucosa with chronic inflammation. - Negative for intestinal metaplasia and dysplasia. C. Esophagus, mid, biopsy: - Squamous mucosa with focal active esophagitis; see comment. D. Stomach, fundus, polyp, biopsy: - Fundic gland polyp. Addendum C: A GMS special stain for fungus is negative. IMPRESSION: esophagitis PLAN: I recommend increasing his prilosec to 40mg per day INSTRUCTIONS FOR PEPTIC ULCER DISEASE - ESOPHAGITIS I discussed with you the findings of your upper endoscopy. Your upper endoscopy demonstrated esophagitis Esophagitis may be a form of peptic irritation, with acid moving from the stomach to the esophagus (gastroesophageal reflux) Factors that increase acid production include smoking and stress. If you smoke, stopping smoking will often cure these issues without needing other medications. Over the counter medications including antiacids and acid reducing medications including H2 blockers (Zantac and the like) and proton pump inhibitors (prilosec, prevacid and the like) neutralize or prevent acid production. Prescription strength proton pump inhibitors (PPIs) may be necessary if your symptoms persist. Carafate may be added to PPI treatment in refractory cases. Avoiding smoking, alcohol and antiinflammatory medications are important in the successful treatment of reflux esophagitis and peptic diseases. Other factors that contribute to GERD and esophagitis are being overweight, eating large meals before laying down and certain foods. Weight loss will help improve many GERD complaints. Remaining upright after eating large meals and having a small supper will also help symptoms. Avoiding food that contribute to reflux - chocolate, caffeine, cheddar cheese may also help. Follow up upper endoscopy may be recommended to assure healing of the esophagus. New or worsening symptoms such are epigastric pain, burning, difficulty swallowing or food stickingshould be relayed to your physician. Feeling full early after eating, or black, tarry, foul smelling stools are also worrisome. If you have any difficulties or concerns, you should contact our office immediately. The patient is instructed to follow-up with your primary care provider I have instructed my staff to forward the above information to the patient and to the appropriate providers [facility] Miscellaneous Notes* Telephone Encounter - Vijay Alvarez MD - 12/01/2023 7:47 AM EDT FOLLOW UP ENDOSCOPY - RESULTS AND RECOMMENDATIONS NAME: Orin Canseco CLINIC NO.: [id number] : 1945 DATE: December 01, 2023 PRIMARY CARE PROVIDER: Vega Ochoa MD Orin Canseco is a patient referred for endoscopy for worsening dysphagia. The patient is a 78 year old male referred for endoscopy. Orin notes no history of colon complaints. The patient notes the following upper complaints: Orin denies abdominal pain.. Orin notes heartburn. Orin notes dysphagia. Orin notes a history of ulcers/ peptic ulcer disease. Orin has undergone prior endoscopy. I performed upper and lower endoscopy on July 24, 2018. Upper endoscopy demonstrated: Impression: - Normal examined jejunum. - Normal examined duodenum. - Normal antrum. Biopsied. - Multiple gastric polyps. Resected and retrieved. - Normal esophagus. - Non-severe reflux esophagitis. Biopsied. Lower endoscopy demonstrated: Impression: - The entire examined colon is normal on direct and retroflexion views. - No specimens collected. Pathology demonstrated: FINAL DIAGNOSIS 1. Stomach, antrum, biopsy (A) - Oxyntic type gastric mucosa with no diagnostic abnormalities. 2. Stomach, polyp in the fundus, biopsy (B) - Fundic gland polyp, negative for dysplasia. 3. Esophagogastric junction, biopsy (C) - Inflamed oxyntic type gastric mucosa, negative for intestinal metaplasia. - Squamous mucosa with reactive epithelial changes. GUILLERMO/alex 07/26/2018 The patient has been taking Prilosec 20 mg a day. Recently he has seen Dr. Meneses. The patient underwent an esophagram 2 years previously but I understand was unremarkable. He underwent a barium swallow with fluoroscopy on September 26, 2023. This was interpreted as normal barium swallow with prominence of the cricopharyngeus muscle I performed upper endoscopy on November 28, 2023. The patient was found to have: Upper Endoscopy Impression: - Normal examined jejunum. - Normal examined duodenum. - Gastritis. Biopsied. - Multiple gastric polyps. Biopsied. - Mildly severe reflux esophagitis with no bleeding. Biopsied. - Normal middle third of esophagus. Biopsied. Pathology demonstrated: FINAL DIAGNOSIS A. Stomach, antrum, biopsy: - Gastric antral body mucosa with no significant histopathologic findings. - No evidence of Helicobacter pylori organisms on H&E stain. B. Esophagus, lower/distal, biopsy: - Squamoglandular mucosa with chronic inflammation. - Negative for intestinal metaplasia and dysplasia. C. Esophagus, mid, biopsy: - Squamous mucosa with focal active esophagitis; see comment. D. Stomach, fundus, polyp, biopsy: - Fundic gland polyp. Addendum C: A GMS special stain for fungus is negative. IMPRESSION: esophagitis PLAN: I recommend increasing his prilosec to 40mg per day INSTRUCTIONS FOR PEPTIC ULCER DISEASE - ESOPHAGITIS I discussed with you the findings of your upper endoscopy. Your upper endoscopy demonstrated esophagitis Esophagitis may be a form of peptic irritation, with acid moving from the stomach to the esophagus (gastroesophageal reflux) Factors that increase acid production include smoking and stress. If you smoke, stopping smoking will often cure these issues without needing other medications. Over the counter medications including antiacids and acid reducing medications including H2 blockers (Zantac and the like) and proton pump inhibitors (prilosec, prevacid and the like) neutralize or prevent acid production. Prescription strength proton pump inhibitors (PPIs) may be necessary if your symptoms persist. Carafate may be added to PPI treatment in refractory cases. Avoiding smoking, alcohol and antiinflammatory medications are important in the successful treatment of reflux esophagitis and peptic diseases. Other factors that contribute to GERD and esophagitis are being overweight, eating large meals before laying down and certain foods. Weight loss will help improve many GERD complaints. Remaining upright after eating large meals and having a small supper will also help symptoms. Avoiding food that contribute to reflux - chocolate, caffeine, cheddar cheese may also help. Follow up upper endoscopy may be recommended to assure healing of the esophagus. New or worsening symptoms such are epigastric pain, burning, difficulty swallowing or food stickingshould be relayed to your physician. Feeling full early after eating, or black, tarry, foul smelling stools are also worrisome. If you have any difficulties or concerns, you should contact our office immediately. The patient is instructed to follow-up with your primary care provider I have instructed my staff to forward the above information to the patient and to the appropriate providers documented in this encounterTri[facility]05-[facility] Note* Discharge Instr - Nursing - Malathi Renteria RN - 11/28/2023 2:13 PM EDT The patient received a copy of EGD discharge instructions that contain information for how to contact the physician who performed the procedure and when to seek medical care. [facility] Miscellaneous Notes* Discharge Instr - Nursing - Malathi Renteria RN - 11/28/2023 2:13 PM EDT The patient received a copy of EGD discharge instructions that contain information for how to contact the physician who performed the procedure and when to seek medical care. documented in this encounterTri[facility]05-21-2024 Nurse Note* Malathi Renteria RN - 11/28/2023 1:57 PM EDT Patient received in phase II via cart in left lateral position, eyes open, alert to self and event,skin warm and dry, respirations regular and unlabored, denies pain or nausea. Dr Alvarez at bedside, reviewed procedure results with patient and . [facility] Nurse Note* Malathi Renteria RN - 11/28/2023 1:57 PM EDT Patient received in phase II via cart in left lateral position, eyes open, alert to self and event,skin warm and dry, respirations regular and unlabored, denies pain or nausea. Dr Alvarez at bedside, reviewed procedure results with patient and . documented in this encounterTri[facility]05-21-2024 Attending History and physical note* Vijay Alvarez MD - 11/28/2023 12:45 PM EDT UPDATED PROCEDURAL SEDATION HISTORY AND PHYSICAL EXAMINATION SERVICE DATE: 11/28/2023 SERVICE TIME: 1:33 PM PHYSICAL EXAM MUST BE COMPLETED ON ADMISSION PROCEDURE: Procedure Indications: The History and Physical (completed in the past 30 days) has been reviewed and the patient has beenexamined. The contents accurately reflect the patient's condition with the following additions or revisions since the H&P was completed. ASA Class: ASA Class:: Patient with mild systemic disease Examination indicates no changes. AIRWAY: Airway Visualization of [place]vula: Yes Mouth opening greater than 2 fingerbreadths: Yes Neck Full Range of Motion: Yes LUNGS: Lungs clear to auscultation CARDIAC: Regular rhythm,Regular rate Provisional Diagnosis/Treatment Plan: dysphagia - EGD SEDATION GOAL: Moderate This H&P can be found in the attached. SIGNATURE: Vijay Alvarez MD PATIENT NAME: Orin Canseco DATE: November 28, 2023 TIME: 1:33 PM Source Note - Vijay Alvarez MD - 11/28/2023 12:45 PM EDT HISTORY AND PHYSICAL Orin Canseco 1945 REFERRING PHYSICIAN: No ref. provider found CHIEF COMPLAINT: EGD Consult HPI: The patient is a 78 year old male referred for endoscopy. Orin notes no history of colon complaints. The patient notes the following upper complaints: Orin denies abdominal pain.. Orin notes heartburn. Orin notes dysphagia. Orin notes a history of ulcers/ peptic ulcer disease. Orin has undergone prior endoscopy. I performed upper and lower endoscopy on July 24, 2018. Upper endoscopy demonstrated: Impression: - Normal examined jejunum. - Normal examined duodenum. - Normal antrum. Biopsied. - Multiple gastric polyps. Resected and retrieved. - Normal esophagus. - Non-severe reflux esophagitis. Biopsied. Lower endoscopy demonstrated: Impression: - The entire examined colon is normal on direct and retroflexion views. - No specimens collected. Pathology demonstrated: FINAL DIAGNOSIS 1. Stomach, antrum, biopsy (A) - Oxyntic type gastric mucosa with no diagnostic abnormalities. 2. Stomach, polyp in the fundus, biopsy (B) - Fundic gland polyp, negative for dysplasia. 3. Esophagogastric junction, biopsy (C) - Inflamed oxyntic type gastric mucosa, negative for intestinal metaplasia. - Squamous mucosa with reactive epithelial changes. MC/rw 07/26/2018 The patient has been taking Prilosec 20 mg a day. Recently he has seen Dr. Meneses. The patient underwent an esophagram 2 years previously but I understand was unremarkable. PAST MEDICAL HISTORY PAST MEDICAL HISTORY Diagnosis Date Aneurysm, thoracic aortic (HCC) Asthma Atrial fibrillation (HCC) BPH (benign prostatic hyperplasia) COVID-19 Esophageal reflux Gout Mixed hyperlipidemia Other and unspecified hyperlipidemia Prostate cancer (HCC) Recurrent sinusitis SVT (supraventricular tachycardia) (HCC) Testicular mass PAST SURGICAL HISTORY PAST SURGICAL HISTORY Procedure Laterality Date COLONOSCOPY FLX DX W/COLLJ SPEC WHEN PFRMD 05/27/2003 Normal colonoscopy COLONOSCOPY FLX DX W/COLLJ SPEC WHEN PFRMD 07/24/2018 Colonoscopy EGD TRANSORAL BIOPSY SINGLE/MULTIPLE 05/27/2003 Gastric ulcers and hiatal hernia ESOPHAGOGASTRODUODENOSCOPY TRANSORAL DIAGNOSTIC 07/24/2018 EGD HOLTER MONITOR 24 HOUR 10/2000 PAST SURGICAL HISTORY OF Excision cyst bilateral wrist, left PAST SURGICAL HISTORY OF Deviated septum nasal surgery PROSTATE BIOPSY PULMONARY FUNCTION TEST 12/2002 REMV CATARACT EXTRACAP,INSERT LENS SVT ABLATION 07/15/2014 CURRENT MEDICATIONS Current Outpatient Medications Medication Sig metoprolol succinate ER (TOPROL XL) 50 mg 24 hr tablet .COMPLEX warfarin (COUMADIN) 1 mg tablet .COMPLEX warfarin (COUMADIN) 5 mg tablet DAILY multivit-minerals/ferrous fum (MULTI VITAMIN ORAL) Take by mouth. flecainide (TAMBOCOR) 100 mg tablet Take by mouth. Take two tablets if atrial fibrillation persistslonger than one hour (Patient taking differently: Take 50 mg by mouth two times a day.) omeprazole(PRILOSEC 20 MG CAP) Take one(1) tablet daily on empty stomach codeine-guaiFENesin (ROBITUSSIN AC) 10-100 mg/5 mL syrup EVERY 8 HOURS NEEDED (Patient not taking: Reported on 10/27/2023) montelukast (SINGULAIR) 10 mg tablet AT BEDTIME (Patient not taking: Reported on 10/27/2023) tamsulosin ER (FLOMAX) 0.4 mg cp24 Take 0.4 mg by mouth. (Patient not taking: Reported on 06/07/2021 ) metoprolol tartrate, short acting, (LOPRESSOR) 50 mg tablet Take 1 tablet by mouth. At onset of fibrillation aspirin 81 mg ORAL chewable tablet Take 1 tablet by mouth every other day. (Patient not taking: Reported on 06/07/2021 ) No current facility-administered medications for this visit. ALLERGIES: Patient has no known allergies. PERSONAL HISTORY: SOCIAL HISTORY Social History Tobacco Use Smoking status: Never Smokeless tobacco: Never Substance Use Topics Alcohol use: Yes Alcohol/week: 4.0 standard drinks of alcohol Types: 4 Glasses of wine per week Drug use: No FAMILY HISTORY: FAMILY HISTORY FAMILY HISTORY Problem Relation Age of Onset None Mother old age Alzheimer's Disease Father None Sister COPD Brother Alcohol/Drug Brother None Brother None Brother None Brother REVIEW OF SYMPTOMS: The review of systems data was entered by the nurse and reviewed by oh Nursing Notes: Jackelyn Hernandez MA 10/27/2023 9:21 AM Signed REVIEW OF SYSTEMS: General: The patient denies fatigue, denies weight loss, NOTES weight gain, denies feeling hot, anddenies feelings of cold. Eyes: The patient denies glaucoma, NOTES eye injury/surgery, does not wear glasses or contacts. Ear/Nose/Throat: The patient NOTES allergies, denies hayfever, denies ear infections, and denies bloody noses. Cardiovascular: The patient denies chest pain, NOTES heart disease, denies high blood pressure,denies cardiac stent, denies prior heart attack, NOTES irregular heart beat, denies high cholesterol, denies poor circulation, denies heart failure, other cardiac issues, denies claudication, denies cold feet, denies peripheral arterial stent. Respiratory: The patient denies tuberculosis, denies pneumonia, NOTES frequent cough, denies pulmonary embolism, denies shortness of breath, and denies coughing up blood. Gastrointestinal: The patient NOTES difficulty swallowing, denies acid reflux, denies ulcers, denies vomiting, denies jaundice/hepatitis, denies gallbladder problems, denies black or tarry stools, denies hemorrhoids, denies bleeding from rectum, denies diverticulitis, denies constipation, denies diarrhea, denies loss of stool control, and denies hernias. Kidney/Bladder: The patient denies kidney stones, denies urine infections, and denies bloody urine. Skin: The patient denies a history of skin cancer, denies bleeding/changing moles, and denies a history of skin rash. Neurologic: The patient denies a history of epilepsy/convulsions, NOTES headaches, denies head/spinal injuries, and denies stroke/TIA. Psychiatric: The patient denies psychiatric medications, denies depression, and denies voices, denies substance abuse. Endocrine: The patient denies thyroid disorders, denies diabetes, and denies hormonal problems. Hematologic: The patient denies a history of bruising, denies bleeding, and denies anemia, denies blood clots. Infections: The patient NOTES a history of measles and mumps, denies rheumatic fever, and denies sexually transmitted diseases. Musculoskeletal: The patient denies back pain/injury, denies back problems, denies sciatica, deniesknee/foot trouble, denies arthritis, or denies gout. When was patient's last Mammogram screening? N/A Last Colonoscopy: 07/24/2018 Jackelyn Hernandez MA PHYSICAL EXAMINATION: General: The patient is 78 year old male, well nourished, well hydrated in no acute distress. The patient is oriented to time, place, and person. VITALS: Blood pressure 122/62, pulse 61, temperature 36.2 C (97.1 F), weight 89.4 kg (197 lb), [id number] Body mass index is 27.48 kg/m . HEENT: Normal cephalic, ataumatic, pupils are equally round, sclera are anicteric, mucous membranesare moist, oropharynx is clear. Neck has no masses, asymmetry or lymphadenopathy. Thyroid is unremarkable. Respiratory: Clear to auscultation and percussion. Normal respiratory excursion and pattern. Cardiac: Examination is regular rate and rhythm. Abdominal exam: Soft, nontender, with no palpable masses. No hepatosplenomegaly. No palpable hernias. Rectal exam: exam deferred Extremities: no clubbing, cyanosis or edema. No adenopathy. Other: LABORATORY VALUES: As Noted RADIOLOGIC STUDIES: As Noted Assessment IMPRESSION: Dysphagia and reflux symptoms while on proton pump inhibitor PLAN: I plan to perform upper endoscopy. We discussed the risks and benefits of the planned endoscopy. I have informed the patient that complications can occur including failure to complete the endoscopy and perforation. The patient had the opportunity to ask questions concerning the planned endoscopy. My staff has also explained the procedure to the patient in understandable terms and has given the patient printed material concerning the procedure. The patient freely consents to surgery. Diagnoses: (R13.10) Dysphagia, unspecified type (primary encounter diagnosis) A letter was sent to Dr. Meneses indicating the above finding for this patient. Return to Clinic: The patient is instructed to follow-up with me after the testing has been completed. Vijay Alvarez MD [facility] History and physical note* Vijay Alvarez MD - 11/28/2023 12:45 PM EDT HISTORY AND PHYSICAL Orin Bridges [place] 1945 REFERRING PHYSICIAN: No ref. provider found CHIEF COMPLAINT: EGD Consult HPI: The patient is a 78 year old male referred for endoscopy. Orin notes no history of colon complaints. The patient notes the following upper complaints: Orin denies abdominal pain.. Orin notes heartburn. Orin notes dysphagia. Orin notes a history of ulcers/ peptic ulcer disease. Orin has undergone prior endoscopy. I performed upper and lower endoscopy on July 24, 2018. Upper endoscopy demonstrated: Impression: - Normal examined jejunum. - Normal examined duodenum. - Normal antrum. Biopsied. - Multiple gastric polyps. Resected and retrieved. - Normal esophagus. - Non-severe reflux esophagitis. Biopsied. Lower endoscopy demonstrated: Impression: - The entire examined colon is normal on direct and retroflexion views. - No specimens collected. Pathology demonstrated: FINAL DIAGNOSIS 1. Stomach, antrum, biopsy (A) - Oxyntic type gastric mucosa with no diagnostic abnormalities. 2. Stomach, polyp in the fundus, biopsy (B) - Fundic gland polyp, negative for dysplasia. 3. Esophagogastric junction, biopsy (C) - Inflamed oxyntic type gastric mucosa, negative for intestinal metaplasia. - Squamous mucosa with reactive epithelial changes. GUILLERMO/alex 07/26/2018 The patient has been taking Prilosec 20 mg a day. Recently he has seen Dr. Meneses. The patient underwent an esophagram 2 years previously but I understand was unremarkable. PAST MEDICAL HISTORY PAST MEDICAL HISTORY Diagnosis Date Aneurysm, thoracic aortic (HCC) Asthma Atrial fibrillation (HCC) BPH (benign prostatic hyperplasia) COVID-19 Esophageal reflux Gout Mixed hyperlipidemia Other and unspecified hyperlipidemia Prostate cancer (HCC) Recurrent sinusitis SVT (supraventricular tachycardia) (HCC) Testicular mass PAST SURGICAL HISTORY PAST SURGICAL HISTORY Procedure Laterality Date COLONOSCOPY FLX DX W/COLLJ SPEC WHEN PFRMD 05/27/2003 Normal colonoscopy COLONOSCOPY FLX DX W/COLLJ SPEC WHEN PFRMD 07/24/2018 Colonoscopy EGD TRANSORAL BIOPSY SINGLE/MULTIPLE 05/27/2003 Gastric ulcers and hiatal hernia ESOPHAGOGASTRODUODENOSCOPY TRANSORAL DIAGNOSTIC 07/24/2018 EGD HOLTER MONITOR 24 HOUR 10/2000 PAST SURGICAL HISTORY OF Excision cyst bilateral wrist, left PAST SURGICAL HISTORY OF Deviated septum nasal surgery PROSTATE BIOPSY PULMONARY FUNCTION TEST 12/2002 REMV CATARACT EXTRACAP,INSERT LENS SVT ABLATION 07/15/2014 CURRENT MEDICATIONS Current Outpatient Medications Medication Sig metoprolol succinate ER (TOPROL XL) 50 mg 24 hr tablet .COMPLEX warfarin (COUMADIN) 1 mg tablet .COMPLEX warfarin (COUMADIN) 5 mg tablet DAILY multivit-minerals/ferrous fum (MULTI VITAMIN ORAL) Take by mouth. flecainide (TAMBOCOR) 100 mg tablet Take by mouth. Take two tablets if atrial fibrillation persistslonger than one hour (Patient taking differently: Take 50 mg by mouth two times a day.) omeprazole(PRILOSEC 20 MG CAP) Take one(1) tablet daily on empty stomach codeine-guaiFENesin (ROBITUSSIN AC) 10-100 mg/5 mL syrup EVERY 8 HOURS NEEDED (Patient not taking: Reported on 10/27/2023) montelukast (SINGULAIR) 10 mg tablet AT BEDTIME (Patient not taking: Reported on 10/27/2023) tamsulosin ER (FLOMAX) 0.4 mg cp24 Take 0.4 mg by mouth. (Patient not taking: Reported on 06/07/2021 ) metoprolol tartrate, short acting, (LOPRESSOR) 50 mg tablet Take 1 tablet by mouth. At onset of fibrillation aspirin 81 mg ORAL chewable tablet Take 1 tablet by mouth every other day. (Patient not taking: Reported on 06/07/2021 ) No current facility-administered medications for this visit. ALLERGIES: Patient has no known allergies. PERSONAL HISTORY: SOCIAL HISTORY Social History Tobacco Use Smoking status: Never Smokeless tobacco: Never Substance Use Topics Alcohol use: Yes Alcohol/week: 4.0 standard drinks of alcohol Types: 4 Glasses of wine per week Drug use: No FAMILY HISTORY: FAMILY HISTORY FAMILY HISTORY Problem Relation Age of Onset None Mother old age Alzheimer's Disease Father None Sister COPD Brother Alcohol/Drug Brother None Brother None Brother None Brother REVIEW OF SYMPTOMS: The review of systems data was entered by the nurse and reviewed by oh Nursing Notes: Jackelyn Hernandez MA 10/27/2023 9:21 AM Signed REVIEW OF SYSTEMS: General: The patient denies fatigue, denies weight loss, NOTES weight gain, denies feeling hot, anddenies feelings of cold. Eyes: The patient denies glaucoma, NOTES eye injury/surgery, does not wear glasses or contacts. Ear/Nose/Throat: The patient NOTES allergies, denies hayfever, denies ear infections, and denies bloody noses. Cardiovascular: The patient denies chest pain, NOTES heart disease, denies high blood pressure,denies cardiac stent, denies prior heart attack, NOTES irregular heart beat, denies high cholesterol, denies poor circulation, denies heart failure, other cardiac issues, denies claudication, denies cold feet, denies peripheral arterial stent. Respiratory: The patient denies tuberculosis, denies pneumonia, NOTES frequent cough, denies pulmonary embolism, denies shortness of breath, and denies coughing up blood. Gastrointestinal: The patient NOTES difficulty swallowing, denies acid reflux, denies ulcers, denies vomiting, denies jaundice/hepatitis, denies gallbladder problems, denies black or tarry stools, denies hemorrhoids, denies bleeding from rectum, denies diverticulitis, denies constipation, denies diarrhea, denies loss of stool control, and denies hernias. Kidney/Bladder: The patient denies kidney stones, denies urine infections, and denies bloody urine. Skin: The patient denies a history of skin cancer, denies bleeding/changing moles, and denies a history of skin rash. Neurologic: The patient denies a history of epilepsy/convulsions, NOTES headaches, denies head/spinal injuries, and denies stroke/TIA. Psychiatric: The patient denies psychiatric medications, denies depression, and denies voices, denies substance abuse. Endocrine: The patient denies thyroid disorders, denies diabetes, and denies hormonal problems. Hematologic: The patient denies a history of bruising, denies bleeding, and denies anemia, denies blood clots. Infections: The patient NOTES a history of measles and mumps, denies rheumatic fever, and denies sexually transmitted diseases. Musculoskeletal: The patient denies back pain/injury, denies back problems, denies sciatica, deniesknee/foot trouble, denies arthritis, or denies gout. When was patient's last Mammogram screening? N/A Last Colonoscopy: 07/24/2018 Jackelyn Hernandez MA PHYSICAL EXAMINATION: General: The patient is 78 year old male, well nourished, well hydrated in no acute distress. The patient is oriented to time, place, and person. VITALS: Blood pressure 122/62, pulse 61, temperature 36.2 C (97.1 F), weight 89.4 kg (197 lb), [id number] Body mass index is 27.48 kg/m . HEENT: Normal cephalic, ataumatic, pupils are equally round, sclera are anicteric, mucous membranesare moist, oropharynx is clear. Neck has no masses, asymmetry or lymphadenopathy. Thyroid is unremarkable. Respiratory: Clear to auscultation and percussion. Normal respiratory excursion and pattern. Cardiac: Examination is regular rate and rhythm. Abdominal exam: Soft, nontender, with no palpable masses. No hepatosplenomegaly. No palpable hernias. Rectal exam: exam deferred Extremities: no clubbing, cyanosis or edema. No adenopathy. Other: LABORATORY VALUES: As Noted RADIOLOGIC STUDIES: As Noted Assessment IMPRESSION: Dysphagia and reflux symptoms while on proton pump inhibitor PLAN: I plan to perform upper endoscopy. We discussed the risks and benefits of the planned endoscopy. I have informed the patient that complications can occur including failure to complete the endoscopy and perforation. The patient had the opportunity to ask questions concerning the planned endoscopy. My staff has also explained the procedure to the patient in understandable terms and has given the patient printed material concerning the procedure. The patient freely consents to surgery. Diagnoses: (R13.10) Dysphagia, unspecified type (primary encounter diagnosis) A letter was sent to Dr. Meneses indicating the above finding for this patient. Return to Clinic: The patient is instructed to follow-up with me after the testing has been completed. Vijay Alvarez MD [facility]05-21-2024 History and physical note* Vijay Alvarez MD - 11/28/2023 12:45 PM EDT UPDATED PROCEDURAL SEDATION HISTORY AND PHYSICAL EXAMINATION SERVICE DATE: 11/28/2023 SERVICE TIME: 1:33 PM PHYSICAL EXAM MUST BE COMPLETED ON ADMISSION PROCEDURE: Procedure Indications: The History and Physical (completed in the past 30 days) has been reviewed and the patient has beenexamined. The contents accurately reflect the patient's condition with the following additions or revisions since the H&P was completed. ASA Class: ASA Class:: Patient with mild systemic disease Examination indicates no changes. AIRWAY: Airway Visualization of [place]: Yes Mouth opening greater than 2 fingerbreadths: Yes Neck Full Range of Motion: Yes LUNGS: Lungs clear to auscultation CARDIAC: Regular rhythm,Regular rate Provisional Diagnosis/Treatment Plan: dysphagia - EGD SEDATION GOAL: Moderate This H&P can be found in the attached. SIGNATURE: Vijay Alvarez MD PATIENT NAME: Orin Canseco DATE: November 28, 2023 TIME: 1:33 PM Source Note - Vijay Alvarez MD - 11/28/2023 12:45 PM EDT HISTORY AND PHYSICAL Orin Canseco 1945 REFERRING PHYSICIAN: No ref. provider found CHIEF COMPLAINT: EGD Consult HPI: The patient is a 78 year old male referred for endoscopy. Orin notes no history of colon complaints. The patient notes the following upper complaints: Orin denies abdominal pain.. Orin notes heartburn. Orin notes dysphagia. Orin notes a history of ulcers/ peptic ulcer disease. Orin has undergone prior endoscopy. I performed upper and lower endoscopy on July 24, 2018. Upper endoscopy demonstrated: Impression: - Normal examined jejunum. - Normal examined duodenum. - Normal antrum. Biopsied. - Multiple gastric polyps. Resected and retrieved. - Normal esophagus. - Non-severe reflux esophagitis. Biopsied. Lower endoscopy demonstrated: Impression: - The entire examined colon is normal on direct and retroflexion views. - No specimens collected. Pathology demonstrated: FINAL DIAGNOSIS 1. Stomach, antrum, biopsy (A) - Oxyntic type gastric mucosa with no diagnostic abnormalities. 2. Stomach, polyp in the fundus, biopsy (B) - Fundic gland polyp, negative for dysplasia. 3. Esophagogastric junction, biopsy (C) - Inflamed oxyntic type gastric mucosa, negative for intestinal metaplasia. - Squamous mucosa with reactive epithelial changes. MC/rw 07/26/2018 The patient has been taking Prilosec 20 mg a day. Recently he has seen Dr. Meneses. The patient underwent an esophagram 2 years previously but I understand was unremarkable. PAST MEDICAL HISTORY PAST MEDICAL HISTORY Diagnosis Date Aneurysm, thoracic aortic (HCC) Asthma Atrial fibrillation (HCC) BPH (benign prostatic hyperplasia) COVID-19 Esophageal reflux Gout Mixed hyperlipidemia Other and unspecified hyperlipidemia Prostate cancer (HCC) Recurrent sinusitis SVT (supraventricular tachycardia) (HCC) Testicular mass PAST SURGICAL HISTORY PAST SURGICAL HISTORY Procedure Laterality Date COLONOSCOPY FLX DX W/COLLJ SPEC WHEN PFRMD 05/27/2003 Normal colonoscopy COLONOSCOPY FLX DX W/COLLJ SPEC WHEN PFRMD 07/24/2018 Colonoscopy EGD TRANSORAL BIOPSY SINGLE/MULTIPLE 05/27/2003 Gastric ulcers and hiatal hernia ESOPHAGOGASTRODUODENOSCOPY TRANSORAL DIAGNOSTIC 07/24/2018 EGD HOLTER MONITOR 24 HOUR 10/2000 PAST SURGICAL HISTORY OF Excision cyst bilateral wrist, left PAST SURGICAL HISTORY OF Deviated septum nasal surgery PROSTATE BIOPSY PULMONARY FUNCTION TEST 12/2002 REMV CATARACT EXTRACAP,INSERT LENS SVT ABLATION 07/15/2014 CURRENT MEDICATIONS Current Outpatient Medications Medication Sig metoprolol succinate ER (TOPROL XL) 50 mg 24 hr tablet .COMPLEX warfarin (COUMADIN) 1 mg tablet .COMPLEX warfarin (COUMADIN) 5 mg tablet DAILY multivit-minerals/ferrous fum (MULTI VITAMIN ORAL) Take by mouth. flecainide (TAMBOCOR) 100 mg tablet Take by mouth. Take two tablets if atrial fibrillation persistslonger than one hour (Patient taking differently: Take 50 mg by mouth two times a day.) omeprazole(PRILOSEC 20 MG CAP) Take one(1) tablet daily on empty stomach codeine-guaiFENesin (ROBITUSSIN AC) 10-100 mg/5 mL syrup EVERY 8 HOURS NEEDED (Patient not taking: Reported on 10/27/2023) montelukast (SINGULAIR) 10 mg tablet AT BEDTIME (Patient not taking: Reported on 10/27/2023) tamsulosin ER (FLOMAX) 0.4 mg cp24 Take 0.4 mg by mouth. (Patient not taking: Reported on 06/07/2021 ) metoprolol tartrate, short acting, (LOPRESSOR) 50 mg tablet Take 1 tablet by mouth. At onset of fibrillation aspirin 81 mg ORAL chewable tablet Take 1 tablet by mouth every other day. (Patient not taking: Reported on 06/07/2021 ) No current facility-administered medications for this visit. ALLERGIES: Patient has no known allergies. PERSONAL HISTORY: SOCIAL HISTORY Social History Tobacco Use Smoking status: Never Smokeless tobacco: Never Substance Use Topics Alcohol use: Yes Alcohol/week: 4.0 standard drinks of alcohol Types: 4 Glasses of wine per week Drug use: No FAMILY HISTORY: FAMILY HISTORY FAMILY HISTORY Problem Relation Age of Onset None Mother old age Alzheimer's Disease Father None Sister COPD Brother Alcohol/Drug Brother None Brother None Brother None Brother REVIEW OF SYMPTOMS: The review of systems data was entered by the nurse and reviewed by oh Nursing Notes: Jackelyn Hernandez MA 10/27/2023 9:21 AM Signed REVIEW OF SYSTEMS: General: The patient denies fatigue, denies weight loss, NOTES weight gain, denies feeling hot, anddenies feelings of cold. Eyes: The patient denies glaucoma, NOTES eye injury/surgery, does not wear glasses or contacts. Ear/Nose/Throat: The patient NOTES allergies, denies hayfever, denies ear infections, and denies bloody noses. Cardiovascular: The patient denies chest pain, NOTES heart disease, denies high blood pressure,denies cardiac stent, denies prior heart attack, NOTES irregular heart beat, denies high cholesterol, denies poor circulation, denies heart failure, other cardiac issues, denies claudication, denies cold feet, denies peripheral arterial stent. Respiratory: The patient denies tuberculosis, denies pneumonia, NOTES frequent cough, denies pulmonary embolism, denies shortness of breath, and denies coughing up blood. Gastrointestinal: The patient NOTES difficulty swallowing, denies acid reflux, denies ulcers, denies vomiting, denies jaundice/hepatitis, denies gallbladder problems, denies black or tarry stools, denies hemorrhoids, denies bleeding from rectum, denies diverticulitis, denies constipation, denies diarrhea, denies loss of stool control, and denies hernias. Kidney/Bladder: The patient denies kidney stones, denies urine infections, and denies bloody urine. Skin: The patient denies a history of skin cancer, denies bleeding/changing moles, and denies a history of skin rash. Neurologic: The patient denies a history of epilepsy/convulsions, NOTES headaches, denies head/spinal injuries, and denies stroke/TIA. Psychiatric: The patient denies psychiatric medications, denies depression, and denies voices, denies substance abuse. Endocrine: The patient denies thyroid disorders, denies diabetes, and denies hormonal problems. Hematologic: The patient denies a history of bruising, denies bleeding, and denies anemia, denies blood clots. Infections: The patient NOTES a history of measles and mumps, denies rheumatic fever, and denies sexually transmitted diseases. Musculoskeletal: The patient denies back pain/injury, denies back problems, denies sciatica, deniesknee/foot trouble, denies arthritis, or denies gout. When was patient's last Mammogram screening? N/A Last Colonoscopy: 07/24/2018 Jackelyn Hernandez MA PHYSICAL EXAMINATION: General: The patient is 78 year old male, well nourished, well hydrated in no acute distress. The patient is oriented to time, place, and person. VITALS: Blood pressure 122/62, pulse 61, temperature 36.2 C (97.1 F), weight 89.4 kg (197 lb), [id number] Body mass index is 27.48 kg/m . HEENT: Normal cephalic, ataumatic, pupils are equally round, sclera are anicteric, mucous membranesare moist, oropharynx is clear. Neck has no masses, asymmetry or lymphadenopathy. Thyroid is unremarkable. Respiratory: Clear to auscultation and percussion. Normal respiratory excursion and pattern. Cardiac: Examination is regular rate and rhythm. Abdominal exam: Soft, nontender, with no palpable masses. No hepatosplenomegaly. No palpable hernias. Rectal exam: exam deferred Extremities: no clubbing, cyanosis or edema. No adenopathy. Other: LABORATORY VALUES: As Noted RADIOLOGIC STUDIES: As Noted Assessment IMPRESSION: Dysphagia and reflux symptoms while on proton pump inhibitor PLAN: I plan to perform upper endoscopy. We discussed the risks and benefits of the planned endoscopy. I have informed the patient that complications can occur including failure to complete the endoscopy and perforation. The patient had the opportunity to ask questions concerning the planned endoscopy. My staff has also explained the procedure to the patient in understandable terms and has given the patient printed material concerning the procedure. The patient freely consents to surgery. Diagnoses: (R13.10) Dysphagia, unspecified type (primary encounter diagnosis) A letter was sent to Dr. Meneses indicating the above finding for this patient. Return to Clinic: The patient is instructed to follow-up with me after the testing has been completed. Vijay Alvarez MD * Vijay Alvarez MD - 11/28/2023 12:45 PM EDT HISTORY AND PHYSICAL Orin Bridges [place] 1945 REFERRING PHYSICIAN: No ref. provider found CHIEF COMPLAINT: EGD Consult HPI: The patient is a 78 year old male referred for endoscopy. Orin notes no history of colon complaints. The patient notes the following upper complaints: Orin denies abdominal pain.. Orin notes heartburn. Orin notes dysphagia. Orin notes a history of ulcers/ peptic ulcer disease. Orin has undergone prior endoscopy. I performed upper and lower endoscopy on July 24, 2018. Upper endoscopy demonstrated: Impression: - Normal examined jejunum. - Normal examined duodenum. - Normal antrum. Biopsied. - Multiple gastric polyps. Resected and retrieved. - Normal esophagus. - Non-severe reflux esophagitis. Biopsied. Lower endoscopy demonstrated: Impression: - The entire examined colon is normal on direct and retroflexion views. - No specimens collected. Pathology demonstrated: FINAL DIAGNOSIS 1. Stomach, antrum, biopsy (A) - Oxyntic type gastric mucosa with no diagnostic abnormalities. 2. Stomach, polyp in the fundus, biopsy (B) - Fundic gland polyp, negative for dysplasia. 3. Esophagogastric junction, biopsy (C) - Inflamed oxyntic type gastric mucosa, negative for intestinal metaplasia. - Squamous mucosa with reactive epithelial changes. MC/rw 07/26/2018 The patient has been taking Prilosec 20 mg a day. Recently he has seen Dr. Meneses. The patient underwent an esophagram 2 years previously but I understand was unremarkable. PAST MEDICAL HISTORY PAST MEDICAL HISTORY Diagnosis Date Aneurysm, thoracic aortic (HCC) Asthma Atrial fibrillation (HCC) BPH (benign prostatic hyperplasia) COVID-19 Esophageal reflux Gout Mixed hyperlipidemia Other and unspecified hyperlipidemia Prostate cancer (HCC) Recurrent sinusitis SVT (supraventricular tachycardia) (HCC) Testicular mass PAST SURGICAL HISTORY PAST SURGICAL HISTORY Procedure Laterality Date COLONOSCOPY FLX DX W/COLLJ SPEC WHEN PFRMD 05/27/2003 Normal colonoscopy COLONOSCOPY FLX DX W/COLLJ SPEC WHEN PFRMD 07/24/2018 Colonoscopy EGD TRANSORAL BIOPSY SINGLE/MULTIPLE 05/27/2003 Gastric ulcers and hiatal hernia ESOPHAGOGASTRODUODENOSCOPY TRANSORAL DIAGNOSTIC 07/24/2018 EGD HOLTER MONITOR 24 HOUR 10/2000 PAST SURGICAL HISTORY OF Excision cyst bilateral wrist, left PAST SURGICAL HISTORY OF Deviated septum nasal surgery PROSTATE BIOPSY PULMONARY FUNCTION TEST 12/2002 REMV CATARACT EXTRACAP,INSERT LENS SVT ABLATION 07/15/2014 CURRENT MEDICATIONS Current Outpatient Medications Medication Sig metoprolol succinate ER (TOPROL XL) 50 mg 24 hr tablet .COMPLEX warfarin (COUMADIN) 1 mg tablet .COMPLEX warfarin (COUMADIN) 5 mg tablet DAILY multivit-minerals/ferrous fum (MULTI VITAMIN ORAL) Take by mouth. flecainide (TAMBOCOR) 100 mg tablet Take by mouth. Take two tablets if atrial fibrillation persistslonger than one hour (Patient taking differently: Take 50 mg by mouth two times a day.) omeprazole(PRILOSEC 20 MG CAP) Take one(1) tablet daily on empty stomach codeine-guaiFENesin (ROBITUSSIN AC) 10-100 mg/5 mL syrup EVERY 8 HOURS NEEDED (Patient not taking: Reported on 10/27/2023) montelukast (SINGULAIR) 10 mg tablet AT BEDTIME (Patient not taking: Reported on 10/27/2023) tamsulosin ER (FLOMAX) 0.4 mg cp24 Take 0.4 mg by mouth. (Patient not taking: Reported on 06/07/2021 ) metoprolol tartrate, short acting, (LOPRESSOR) 50 mg tablet Take 1 tablet by mouth. At onset of fibrillation aspirin 81 mg ORAL chewable tablet Take 1 tablet by mouth every other day. (Patient not taking: Reported on 06/07/2021 ) No current facility-administered medications for this visit. ALLERGIES: Patient has no known allergies. PERSONAL HISTORY: SOCIAL HISTORY Social History Tobacco Use Smoking status: Never Smokeless tobacco: Never Substance Use Topics Alcohol use: Yes Alcohol/week: 4.0 standard drinks of alcohol Types: 4 Glasses of wine per week Drug use: No FAMILY HISTORY: FAMILY HISTORY FAMILY HISTORY Problem Relation Age of Onset None Mother old age Alzheimer's Disease Father None Sister COPD Brother Alcohol/Drug Brother None Brother None Brother None Brother REVIEW OF SYMPTOMS: The review of systems data was entered by the nurse and reviewed by oh Nursing Notes: Jackelyn Hernandez MA 10/27/2023 9:21 AM Signed REVIEW OF SYSTEMS: General: The patient denies fatigue, denies weight loss, NOTES weight gain, denies feeling hot, anddenies feelings of cold. Eyes: The patient denies glaucoma, NOTES eye injury/surgery, does not wear glasses or contacts. Ear/Nose/Throat: The patient NOTES allergies, denies hayfever, denies ear infections, and denies bloody noses. Cardiovascular: The patient denies chest pain, NOTES heart disease, denies high blood pressure,denies cardiac stent, denies prior heart attack, NOTES irregular heart beat, denies high cholesterol, denies poor circulation, denies heart failure, other cardiac issues, denies claudication, denies cold feet, denies peripheral arterial stent. Respiratory: The patient denies tuberculosis, denies pneumonia, NOTES frequent cough, denies pulmonary embolism, denies shortness of breath, and denies coughing up blood. Gastrointestinal: The patient NOTES difficulty swallowing, denies acid reflux, denies ulcers, denies vomiting, denies jaundice/hepatitis, denies gallbladder problems, denies black or tarry stools, denies hemorrhoids, denies bleeding from rectum, denies diverticulitis, denies constipation, denies diarrhea, denies loss of stool control, and denies hernias. Kidney/Bladder: The patient denies kidney stones, denies urine infections, and denies bloody urine. Skin: The patient denies a history of skin cancer, denies bleeding/changing moles, and denies a history of skin rash. Neurologic: The patient denies a history of epilepsy/convulsions, NOTES headaches, denies head/spinal injuries, and denies stroke/TIA. Psychiatric: The patient denies psychiatric medications, denies depression, and denies voices, denies substance abuse. Endocrine: The patient denies thyroid disorders, denies diabetes, and denies hormonal problems. Hematologic: The patient denies a history of bruising, denies bleeding, and denies anemia, denies blood clots. Infections: The patient NOTES a history of measles and mumps, denies rheumatic fever, and denies sexually transmitted diseases. Musculoskeletal: The patient denies back pain/injury, denies back problems, denies sciatica, deniesknee/foot trouble, denies arthritis, or denies gout. When was patient's last Mammogram screening? N/A Last Colonoscopy: 07/24/2018 Jackelyn Hernandez MA PHYSICAL EXAMINATION: General: The patient is 78 year old male, well nourished, well hydrated in no acute distress. The patient is oriented to time, place, and person. VITALS: Blood pressure 122/62, pulse 61, temperature 36.2 C (97.1 F), weight 89.4 kg (197 lb), [id number]%. Body mass index is 27.48 kg/m . HEENT: Normal cephalic, ataumatic, pupils are equally round, sclera are anicteric, mucous membranesare moist, oropharynx is clear. Neck has no masses, asymmetry or lymphadenopathy. Thyroid is unremarkable. Respiratory: Clear to auscultation and percussion. Normal respiratory excursion and pattern. Cardiac: Examination is regular rate and rhythm. Abdominal exam: Soft, nontender, with no palpable masses. No hepatosplenomegaly. No palpable hernias. Rectal exam: exam deferred Extremities: no clubbing, cyanosis or edema. No adenopathy. Other: LABORATORY VALUES: As Noted RADIOLOGIC STUDIES: As Noted Assessment IMPRESSION: Dysphagia and reflux symptoms while on proton pump inhibitor PLAN: I plan to perform upper endoscopy. We discussed the risks and benefits of the planned endoscopy. I have informed the patient that complications can occur including failure to complete the endoscopy and perforation. The patient had the opportunity to ask questions concerning the planned endoscopy. My staff has also explained the procedure to the patient in understandable terms and has given the patient printed material concerning the procedure. The patient freely consents to surgery. Diagnoses: (R13.10) Dysphagia, unspecified type (primary encounter diagnosis) A letter was sent to Dr. Meneses indicating the above finding for this patient. Return to Clinic: The patient is instructed to follow-up with me after the testing has been completed. Vijay Alvarez MD documented [facility] encounter[facility] Telephone encounter Note * Telephone Encounter - Mary Napier - 11/20/2023 10:47 AM EDT Attempted to reach patient to schedule sooner procedure date with Janett in [facility] on 11/28/2023. Leftvoicemail to call office back Mary Napier Electroless Plater ' [facility]05-13-[facility] Miscellaneous Notes* Telephone Encounter - Mary Napier - 11/20/2023 10:47 AM EDT Attempted to reach patient to schedule sooner procedure date with [facility] in [facility] on 11/28/2023. Leftvoicemail to call office back Mary Napier Electroless Plater ' * Telephone Encounter - Mary Napier - 10/27/2023 9:40 AM EDT 12/12/2023 EGD [facility] Patient asking to be on waitlist for Janett ONLY documented in this encounter[facility] Telephone encounter Note * Telephone Encounter - Jackelyn Hernandez MA - 11/01/2023 11:[address] Alvarez requesting records from [facility] for patients esophagram. Thank you Mary Napier Electroless Plater Barium Swallow from [facility] is as follows: Scanned into EPIC. Scan on 11/01/2023 11:12 AM by ProviderMckayla PA-C: Miscellaneous Imaging [facility]04-24-[facility]24 Miscellaneous Notes* Telephone Encounter - Jackelyn Hernandez MA - 11/01/2023 11:[address] Alvarez requesting records from [facility] for patients esophagram. Thank you Mary Napier Electroless Plater Barium Swallow from [facility] is as follows: Scanned into EPIC. Scan on 11/01/2023 11:12 AM by ProviderMckayla PA-C: Miscellaneous Imaging documented in this encounterTri[facility]04-[facility] History of Present illness Narrative* Vijay Alvarez MD - 10/27/2023 9:49 AM EDT HISTORY AND PHYSICAL Orin Canseco 1945 REFERRING PHYSICIAN: No ref. provider found CHIEF COMPLAINT: EGD Consult HPI: The patient is a 78 year old male referred for endoscopy. Orin notes no history of colon complaints. The patient notes the following upper complaints: Orin denies abdominal pain.. Orin notes heartburn. Orin notes dysphagia. Orin notes a history of ulcers/ peptic ulcer disease. Orin has undergone prior endoscopy. I performed upper and lower endoscopy on July 24, 2018. Upper endoscopy demonstrated: Impression: - Normal examined jejunum. - Normal examined duodenum. - Normal antrum. Biopsied. - Multiple gastric polyps. Resected and retrieved. - Normal esophagus. - Non-severe reflux esophagitis. Biopsied. Lower endoscopy demonstrated: Impression: - The entire examined colon is normal on direct and retroflexion views. - No specimens collected. Pathology demonstrated: FINAL DIAGNOSIS 1. Stomach, antrum, biopsy (A) - Oxyntic type gastric mucosa with no diagnostic abnormalities. 2. Stomach, polyp in the fundus, biopsy (B) - Fundic gland polyp, negative for dysplasia. 3. Esophagogastric junction, biopsy (C) - Inflamed oxyntic type gastric mucosa, negative for intestinal metaplasia. - Squamous mucosa with reactive epithelial changes. MC/rw 07/26/2018 The patient has been taking Prilosec 20 mg a day. Recently he has seen Dr. Meneses. The patient underwent an esophagram 2 years previously but I understand was unremarkable. PAST MEDICAL HISTORY Diagnosis Date Aneurysm, thoracic aortic (HCC) Asthma Atrial fibrillation (HCC) BPH (benign prostatic hyperplasia) COVID-19 Esophageal reflux Gout Mixed hyperlipidemia Other and unspecified hyperlipidemia Prostate cancer (HCC) Recurrent sinusitis SVT (supraventricular tachycardia) (HCC) Testicular mass PAST SURGICAL HISTORY Procedure Laterality Date COLONOSCOPY FLX DX W/COLLJ SPEC WHEN PFRMD 05/27/2003 Normal colonoscopy COLONOSCOPY FLX DX W/COLLJ SPEC WHEN PFRMD 07/24/2018 Colonoscopy EGD TRANSORAL BIOPSY SINGLE/MULTIPLE 05/27/2003 Gastric ulcers and hiatal hernia ESOPHAGOGASTRODUODENOSCOPY TRANSORAL DIAGNOSTIC 07/24/2018 EGD HOLTER MONITOR 24 HOUR 10/2000 PAST SURGICAL HISTORY OF Excision cyst bilateral wrist, left PAST SURGICAL HISTORY OF Deviated septum nasal surgery PROSTATE BIOPSY PULMONARY FUNCTION TEST 12/2002 REMV CATARACT EXTRACAP,INSERT LENS SVT ABLATION 07/15/2014 Current Outpatient Medications Medication Sig metoprolol succinate ER (TOPROL XL) 50 mg 24 hr tablet .COMPLEX warfarin (COUMADIN) 1 mg tablet .COMPLEX warfarin (COUMADIN) 5 mg tablet DAILY multivit-minerals/ferrous fum (MULTI VITAMIN ORAL) Take by mouth. flecainide (TAMBOCOR) 100 mg tablet Take by mouth. Take two tablets if atrial fibrillation persistslonger than one hour (Patient taking differently: Take 50 mg by mouth two times a day.) omeprazole(PRILOSEC 20 MG CAP) Take one(1) tablet daily on empty stomach codeine-guaiFENesin (ROBITUSSIN AC) 10-100 mg/5 mL syrup EVERY 8 HOURS NEEDED (Patient not taking: Reported on 10/27/2023) montelukast (SINGULAIR) 10 mg tablet AT BEDTIME (Patient not taking: Reported on 10/27/2023) tamsulosin ER (FLOMAX) 0.4 mg cp24 Take 0.4 mg by mouth. (Patient not taking: Reported on 06/07/2021 ) metoprolol tartrate, short acting, (LOPRESSOR) 50 mg tablet Take 1 tablet by mouth. At onset of fibrillation aspirin 81 mg ORAL chewable tablet Take 1 tablet by mouth every other day. (Patient not taking: Reported on 06/07/2021 ) No current facility-administered medications for this visit. ALLERGIES: Patient has no known allergies. PERSONAL HISTORY: Social History Tobacco Use Smoking status: Never Smokeless tobacco: Never Substance Use Topics Alcohol use: Yes Alcohol/week: 4.0 standard drinks of alcohol Types: 4 Glasses of wine per week Drug use: No FAMILY HISTORY: FAMILY HISTORY Problem Relation Age of Onset None Mother old age Alzheimer's Disease Father None Sister COPD Brother Alcohol/Drug Brother None Brother None Brother None Brother REVIEW OF SYMPTOMS: The review of systems data was entered by the nurse and reviewed by oh Nursing Notes: Jackelyn Hernandez MA 10/27/2023 9:21 AM Signed REVIEW OF SYSTEMS: General: The patient denies fatigue, denies weight loss, NOTES weight gain, denies feeling hot, anddenies feelings of cold. Eyes: The patient denies glaucoma, NOTES eye injury/surgery, does not wear glasses or contacts. Ear/Nose/Throat: The patient NOTES allergies, denies hayfever, denies ear infections, and denies bloody noses. Cardiovascular: The patient denies chest pain, NOTES heart disease, denies high blood pressure,denies cardiac stent, denies prior heart attack, NOTES irregular heart beat, denies high cholesterol, denies poor circulation, denies heart failure, other cardiac issues, denies claudication, denies cold feet, denies peripheral arterial stent. Respiratory: The patient denies tuberculosis, denies pneumonia, NOTES frequent cough, denies pulmonary embolism, denies shortness of breath, and denies coughing up blood. Gastrointestinal: The patient NOTES difficulty swallowing, denies acid reflux, denies ulcers, denies vomiting, denies jaundice/hepatitis, denies gallbladder problems, denies black or tarry stools, denies hemorrhoids, denies bleeding from rectum, denies diverticulitis, denies constipation, denies diarrhea, denies loss of stool control, and denies hernias. Kidney/Bladder: The patient denies kidney stones, denies urine infections, and denies bloody urine. Skin: The patient denies a history of skin cancer, denies bleeding/changing moles, and denies a history of skin rash. Neurologic: The patient denies a history of epilepsy/convulsions, NOTES headaches, denies head/spinal injuries, and denies stroke/TIA. Psychiatric: The patient denies psychiatric medications, denies depression, and denies voices, denies substance abuse. Endocrine: The patient denies thyroid disorders, denies diabetes, and denies hormonal problems. Hematologic: The patient denies a history of bruising, denies bleeding, and denies anemia, denies blood clots. Infections: The patient NOTES a history of measles and mumps, denies rheumatic fever, and denies sexually transmitted diseases. Musculoskeletal: The patient denies back pain/injury, denies back problems, denies sciatica, deniesknee/foot trouble, denies arthritis, or denies gout. When was patient's last Mammogram screening? N/A Last Colonoscopy: 07/24/2018 Jackelyn Hernandez MA PHYSICAL EXAMINATION: General: The patient is 78 year old male, well nourished, well hydrated in no acute distress. The patient is oriented to time, place, and person. VITALS: Blood pressure 122/62, pulse 61, temperature 36.2 C (97.1 F), weight 89.4 kg (197 lb), [id number]%. Body mass index is 27.48 kg/m . HEENT: Normal cephalic, ataumatic, pupils are equally round, sclera are anicteric, mucous membranesare moist, oropharynx is clear. Neck has no masses, asymmetry or lymphadenopathy. Thyroid is unremarkable. Respiratory: Clear to auscultation and percussion. Normal respiratory excursion and pattern. Cardiac: Examination is regular rate and rhythm. Abdominal exam: Soft, nontender, with no palpable masses. No hepatosplenomegaly. No palpable hernias. Rectal exam: exam deferred Extremities: no clubbing, cyanosis or edema. No adenopathy. Other: LABORATORY VALUES: As Noted RADIOLOGIC STUDIES: As Noted Assessment IMPRESSION: Dysphagia and reflux symptoms while on proton pump inhibitor PLAN: I plan to perform upper endoscopy. We discussed the risks and benefits of the planned endoscopy. I have informed the patient that complications can occur including failure to complete the endoscopy and perforation. The patient had the opportunity to ask questions concerning the planned endoscopy. My staff has also explained the procedure to the patient in understandable terms and has given the patient printed material concerning the procedure. The patient freely consents to surgery. Diagnoses: (R13.10) Dysphagia, unspecified type (primary encounter diagnosis) A letter was sent to Dr. Meneses indicating the above finding for this patient. Return to Clinic: The patient is instructed to follow-up with me after the testing has been completed. Vijay Alvarez MD documented in this encounterTri[facility]04-[facility] Telephone encounter Note * Telephone Encounter - Mary Napier - 10/27/2023 9:40 AM EDT 12/12/2023 EGD [facility] Patient asking to be on waitlist for Janett ONLY [facility]04-[facility] Nurse Note* Jackelyn Hernandez MA - 10/27/2023 9:18 AM EDT REVIEW OF SYSTEMS: General: The patient denies fatigue, denies weight loss, NOTES weight gain, denies feeling hot, anddenies feelings of cold. Eyes: The patient denies glaucoma, NOTES eye injury/surgery, does not wear glasses or contacts. Ear/Nose/Throat: The patient NOTES allergies, denies hayfever, denies ear infections, and denies bloody noses. Cardiovascular: The patient denies chest pain, NOTES heart disease, denies high blood pressure,denies cardiac stent, denies prior heart attack, NOTES irregular heart beat, denies high cholesterol, denies poor circulation, denies heart failure, other cardiac issues, denies claudication, denies cold feet, denies peripheral arterial stent. Respiratory: The patient denies tuberculosis, denies pneumonia, NOTES frequent cough, denies pulmonary embolism, denies shortness of breath, and denies coughing up blood. Gastrointestinal: The patient NOTES difficulty swallowing, denies acid reflux, denies ulcers, denies vomiting, denies jaundice/hepatitis, denies gallbladder problems, denies black or tarry stools, denies hemorrhoids, denies bleeding from rectum, denies diverticulitis, denies constipation, denies diarrhea, denies loss of stool control, and denies hernias. Kidney/Bladder: The patient denies kidney stones, denies urine infections, and denies bloody urine. Skin: The patient denies a history of skin cancer, denies bleeding/changing moles, and denies a history of skin rash. Neurologic: The patient denies a history of epilepsy/convulsions, NOTES headaches, denies head/spinal injuries, and denies stroke/TIA. Psychiatric: The patient denies psychiatric medications, denies depression, and denies voices, denies substance abuse. Endocrine: The patient denies thyroid disorders, denies diabetes, and denies hormonal problems. Hematologic: The patient denies a history of bruising, denies bleeding, and denies anemia, denies blood clots. Infections: The patient NOTES a history of measles and mumps, denies rheumatic fever, and denies sexually transmitted diseases. Musculoskeletal: The patient denies back pain/injury, denies back problems, denies sciatica, deniesknee/foot trouble, denies arthritis, or denies gout. When was patient's last Mammogram screening? N/A Last Colonoscopy: 07/24/2018 Jackelyn Hernandez MA documented in this encounterTri[facility] History of Past illness Narrative* Problem Noted Date Diagnosed Date Resolved Date Cellulitis and abscess of toe, unspecified 01/30/2009 10/20/2009 Other specified viral warts 12/03/2008 10/20/2009 documented as of this encounter (statuses as of 10/29/2023) [facility]Reason for visit Narrative* Chief Complaint [employer] Reason for Visit Paroxysmal atrial fi brillation Immunization declined History of prostate cancer Skin change Establishing care with new doctor, encounter for Actinic keratosis Well adult exam GERD (gastroesophageal reflux disease) [facility] Work Phone: Evaluation noteNo assessment information available [facility] Work Phone: Evaluation note* Diagnosis Onset Date Resolution Status Hyperlipidemia chronic Paroxysmal atrial fibrillation chronic SVT (supraventricular tachycardia) chronic [facility] Work Phone: Evaluation note* Diagnosis Onset Date Resolution Status Paroxysmal atrial fibrillation chronic Immunization declined noneac tive History of prostate cancer n oneactive Skin change noneactive Establishing care with new doctor, encounter for noneactive Actinic keratosis noneactive Well adult exam noneactive GERD (gastroesophageal reflux disease) noneactive [facility] Work Phone: Evaluation note* Diagnosis Onset Date Resolution Status Acute right otitis media acu te Dysfunction of right eustachian tube acute [facility] Work Phone: Evaluation note* Diagnosis Onset Date Resolution Status Hyperlipidemia chronic Paroxysmal atrial fibrillation chronic SVT (supraventricular tachycardia) chronic Dysfunction of right eustachian tube acute [facility] Work Phone: Evaluation note* Diagnosis Onset Date Resolution Status Dysfunction of right eustachian tube acute Recurrent sinusitis acute Chronic sinus complaints non eactive Cough noneactive COVID-19 acute [facility] Work Phone: Evaluation note* Diagnosis Onset Date Resolution Status Recurrent sinusitis acute Chronic sinus complaints non eactive Cough noneactive Paroxysmal atrial fibrillation chronic Chronic sinus complaints non eactive History of COVID-19 noneacti ve History of prostate cancer n oneactive Immunization due noneactive Dysphagia noneactive Cyst in hand noneactive GERD (gastroesophageal reflux disease) noneactive [facility] Work Phone: Evaluation note* Diagnosis Dysphagia, unspecified type- Primary documented in this encounter [facility]* Diagnosis Onset Date Resolution Status Chronic sinus complaints non eactive Cough noneactive Paroxysmal atrial fibrillation chronic Chronic sinus complaints non eactive History of COVID-19 noneacti ve History of prostate cancer n oneactive Immunization due noneactive Dysphagia noneactive Cyst in hand noneactive GERD (gastroesophageal reflux disease) noneactive [facility] Work Phone: Evaluation note* Diagnosis Gastroesophageal reflux disease, unspecified whether esophagitis present- Primary Dysphagia, unspecified type documented in this encounter [facility]* Diagnosis Esophagitis Esophagitis, unspecified Gastroesophageal reflux disease without esophagitis Esophageal reflux Encounter for follow-up examination after completed treatment for conditions other than malignant neoplasm documented in this encounter [facility]* Diagnosis Onychodystrophy- Primary Other specified disease of nail Diminished pulses in lower extremity Other symptoms involving cardiovascular system [facility] Discharge instructionsAmbulatory Orders* General Surgery Location: None Selected [facility] Work Phone: Hospital Discharge instructionsAmbulatory Orders* Dermatology Location: None Selected [facility] Work Phone: Reason for referral (narrative)* Outpatient Procedure (Routine) - Pending Review Specialty Diagnoses / Procedures Referred By Dong vaca Referred To Contact [facility] Diagnoses Dysphagia, unspecified type Procedures EGD DIAGNOSTIC ESOPHAGOGASTRODUODENOSC OPY TRANSORAL DIAGNOSTIC Vijay Alvarez MD [address] [address] [id number] [place] [address] Referral ID Status Reason Start Date Expiration Date Visits Requested Visits Authorized [id number] Pending Review Auto-Generat ed Referral 10/27/2023 10/26/2024 1 [facility] Outpatient Procedure (Routine) - Closed Specialty Diagnoses / Procedures Referred By Dong vaca Referred To Contact [facility] Diagnoses Dysphagia, unspecified type Procedures EGD DIAGNOSTIC ESOPHAGOGASTRODUODENOSC OPY TRANSORAL DIAGNOSTIC Vijay Alvarez MD [address] [address] [address] [place] [address] [place] [address] Referral ID Status Reason Start Date Expiration Date V isits Requested Visits Authorized [id number] Closed Auto-Generate d Referral 10/27/2023 10/26/2024 1 [facility] Procedure (Routine) - Closed Specialty Diagnoses / Procedures Referred By Dong vaca Referred To Contact [facility] Diagnoses Dysphagia, unspecified type Procedures EGD DIAGNOSTIC ESOPHAGOGASTRODUODENOSC OPY TRANSORAL DIAGNOSTIC Vijay Alvarez MD [address] [address] [facility] [place] [address] [place] [address] Referral ID Status Reason Start Date Expiration Date V isits Requested Visits Authorized [id number] Closed Auto-Generate d Referral 10/27/2023 10/26/2024 1 1 [facility] Chief Complaint and Reason for Visit Chief Complaint DYSPHAGIA CP Chief Complaint DYSPHAGIA CP CHEST PAIN Chief Complaint DYSPHAGIA CP CHEST PAIN 6 M FU E ORDERS Reason for Visit Hyperlipidemia Paroxysmal atrial fibrillation SVT (supraventricular tachycardia) Chief Complaint SORE THROAT Reason for Visit Acute right otitis m edia Dysfunction of right eustachian tube Chief Complaint 1 y fu RT SIDE EAR PAIN Reason for Visit Hyperlipidemia Paroxysmal atrial fibrillation SVT (supraventricular tachycardia) Dysfunction of right eustachian tube Chief Complaint RT SIDE EAR PAIN RIGHT EAR DISCOMFORT/SINUS DISCOMFORT COUGHING INR COLD/ FLU SX Cough/congestion xray INR Reason for Visit Dysfunction of right eustachian tube Recurrent sinusitis Chronic sinus complaints Cough COVID-19 Chief Complaint RIGHT EAR DISCOMFORT /SINUS DISCOMFORT COUGHING INR COLD/ FLU SX Cough/congestion xray INR INR 1 Y FU DYSPHAGIA Reason for Visit Recurrent sinusitis Chronic sinus complaints Cough Paroxysmal atrial fibrillation Chronic sinus complaints History of COVID-19 History of prostate cancer Immunization due Dysphagia Cyst in hand GERD (gastroesophageal reflux disease) Chief Complaint RIGHT EAR DISCOMFORT /SINUS DISCOMFORT COUGHING INR COLD/ FLU SX Cough/congestion xray INR 1 Y FU DYSPHAGIA INR Reason for Visit Recurrent sinusitis Chronic sinus complaints Cough Paroxysmal atrial fibrillation Chronic sinus complaints History of COVID-19 History of prostate cancer Immunization due Dysphagia Cyst in hand GERD (gastroesophageal reflux disease) Chief Complaint COUGHING INR COLD/ FLU SX Cough/congestion xray INR 1 Y FU DYSPHAGIA INR INR Reason for Visit Chronic sinus compla ints Cough Paroxysmal atrial fibrillation Chronic sinus complaints History of COVID-19 History of prostate cancer Immunization due Dysphagia Cyst in hand GERD (gastroesophageal reflux disease) Chief Complaint Admit Date INR June 04, 2024 6:54am INR June 24, 2024 6:49am INR July 16, 2024 6: 48am YEARLY September 25, 2024 7:5 2am Reason for Visit Admit Date CKD (chronic kidney disease) stage 3, GF R 30-59 ml/min September 25, 2024 7:52am Paroxysmal atrial fibrillation September 7:52am Chronic sinus complaints September 25 7:52am History of prostate cancer September 25, 2 025 7:52am Dysphagia September 25, 2024 7:5 2am Well adult exam September 25, 2024 7:5 2am GERD (gastroesophageal reflux disease) M 2024 7:52am Chief Complaint Admit Date ITCHY PATCH ON BACK OF HEAD February 24, 2025 7:56am Chief Complaint Admit Date ITCHY PATCH ON BACK OF HEAD February 24, 2025 7:56am DYSPHONIA March 26, 2025 8:05am Reason for Visit Admit Date Atopic dermatitis February 24, 2025 7: 56am Advance Directives No Advanced Directives Records Found Advance Directive Response Recorded Date/ Time Living Will No January 31, 2022 10:27am Power of Automotive Paint Technician No January 31 10:27am Advance Directive Response Recorded Date/ Time Living Will No January 31, 2022 9:27am Power of Automotive Paint Technician No January 31 9:27am Documents on File Type Date 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 No January 31, 2022 10:27am Living Will No June 09 2:21am Do you have a Healthcare Power of Automotive Paint Technician? No June 09, 2024 2:21am Living Will No July 10 5:45am Do you have a Healthcare Power of Automotive Paint Technician? No July 10, 2024 5:45am Family History No Family History Records Found Relationship Condition Age at Onset Recorded Date/T teddy father Alzheimer's disease Unknown brother Chronic obstructive pulmonary disease Unk nown Alcoholism Unknown Summary Purpose Additional Source Comments Goals (unrecognized section and content) Goals may be documented in a n alternate sectionGoals may be documented in an alternate sectionGoals may be documented in an alternate sectionGoals may be documented in an alternate sectionGoals may be documented in an alternate sectionGoals may be documented in an alternate sectionGoals may be documented in an alternate sectionGoals may be documented in an alternate sectionGoals may be documented in an alternate sectionGoals may be documented in an alternate sectionGoals may be documented in an alternate sectionGoals may be documented in an alternate sectionGoals may be documented in an alternate sectionGoals may be documented in an alternate sectionGoals may be documented in an alternate sectionGoals may be documented in an alternate sectionGoals may be documented in an alternate sectionGoals may be documented in an alternate sectionGoals may be documented in an alternate section Care Teams (unrecognized sec tion and content) Team Status: Active Member Role Status Dates Dr. Vega Ochoa MD Family Provider Active Dr. Negra Meneses MD Primary Care Provider Active Team Status: Inactive Member Role Status Dates Dr. Vega Ochoa MD Primary Care Provider, Referring Provider Active Dr. Negra Meneses MD Attending Provider Active Team Status: Inactive Member Role Status Dates Dr. Negra Meneses MD Primary Care Provider Active Bea Pan CASINO SHIFT MANAGER, CASINO SHIFT MANAGER-C Attending Provider, Referring Pro vider Active Team Status: Inactive Member Role Status Dates Dr. Negra Meneses MD Primary Care Provider Active Dr. Galindo Fournier MD Attending Provider, Referr ing Provider Active Team Status: Inactive Member Role Status Dates Dr. Negra Meneses MD Primary Care Provider, Referri ng Provider Active Danny JIN, PA Attending Provider Active Team Status: Inactive Member Role Status Dates Dr. Negra Meneses MD Primary Care Provider, Referri ng Provider Active Dr. Anuj Velasquez MD Attending Provider Active Team Status: Inactive Member Role Status Dates Dr. Negra Meneses MD Primary Care Provider Active Bea Pan CASINO SHIFT MANAGER, CASINO SHIFT MANAGER-C Attending Provider, Referring Pro vider Active Dr. Anuj Velasquez MD Other Provider Active Team Status: Inactive Member Role Status Dates Dr. Negra Meneses MD Primary Care Provider, Referri ng Provider Active Garret Poole PA, PA Attending Provider Active Team Status: Inactive Member Role Status Dates Dr. Negra Meneses MD Primary Care Pro vider, Attending Provider, Referring Provider Active Team Status: Inactive Member Role Status Dates Dr. Negra Meneses MD Primary Care Provider, Referri ng Provider Active Sukhdev JIN, PA Attending Provider Active Team Status: Inactive Member Role Status Dates Dr. Negra Meneses MD Primary Care Provider Active Dr. Anuj Velasquez MD Attending Provider Active Team Status: Inactive Member Role Status Dates Dr. Vega Ochoa MD Referring Provider Active Dr. Negra Meneses MD Primary Care Provider, Attendi ng Provider Active Team Status: Active Member Role Status Dates Dr. Negra Meneses MD Primary Care Provider Active Bea Pan CASINO SHIFT MANAGER, CASINO SHIFT MANAGER-C Attending Provider, Referring Pro vider Active Dr. Anuj Velasquez MD Other Provider Active Team Status: Active Member Role Status Dates Dr. Negra Meneses MD Primary Care Pro vider, Attending Provider, Referring Provider Active Field Irrigation Worker Relationship Specialty Start Date End Date Vega Ochoa MD PCP - General Family Medicine 03/28/11 Field Irrigation Worker Relationship Specialty Start Date End Date Vega Ochoa MD PCP - General Family Medicine 03/28/11 Field Irrigation Worker Relationship Specialty Start Date End Date Vega Ochoa MD PCP - General Family Medicine 03/28/11 Field Irrigation Worker Relationship Specialty Start Date End Date Vega Ochoa MD PCP - General Family Medicine 03/28/11 Field Irrigation Worker Relationship Specialty Start Date End Date Vega Ochoa MD PCP - General Family Medicine 03/28/11 Field Irrigation Worker Relationship Specialty Start Date End Date Vega Ochoa MD PCP - General Family Medicine 03/28/11 Team Status: Active Member Role Status Dates Dr. Negra Meneses MD Primary Care Provider Active Team Status: Inactive Member Role Status Dates Dr. Negra Meneses MD Primary Care Provider Active Start: June 04, 2024 End: June 08, 2024 Bea Pan CASINO SHIFT MANAGER, CASINO SHIFT MANAGER-C Attending Provider Active S tart: June 04, 2024 End: June 08, 2024 Bea H Maxim CASINO SHIFT MANAGER, CASINO SHIFT MANAGER-C Referring Provider Active S tart: June 04, 2024 End: June 08, 2024 Dr. Anuj Velasquez MD Other Provider Active Start : June 04, 2024 End: June 08, 2024 Team Status: Inactive Member Role Status Dates Dr. Negra Meneses MD Primary Care Provider Active Start: June 24, 2024 End: June 24, 2024 Bea Pan CASINO SHIFT MANAGER, CASINO SHIFT MANAGER-C Attending Provider Active S tart: June 24, 2024 End: June 24, 2024 Bea H Maxim CASINO SHIFT MANAGER, CASINO SHIFT MANAGER-C Referring Provider Active S tart: June 24, 2024 End: June 24, 2024 Dr. Anuj Velasquez MD Other Provider Active Start : June 24, 2024 End: June 24, 2024 Team Status: Inactive Member Role Status Dates Dr. Negra Meneses MD Primary Care Provider Active Start: July 16, 2024 End: July 16, 2024 Bea aPn CASINO SHIFT MANAGER, CASINO SHIFT MANAGER-C Attending Provider Active S tart: July 16, 2024 End: July 16, 2024 Bea H Maxim CASINO SHIFT MANAGER, CASINO SHIFT MANAGER-C Referring Provider Active S tart: July 16, 2024 End: July 16, 2024 Dr. Anuj Velasquez MD Other Provider Active Start : July 16, 2024 End: July 16, 2024 Team Status: Inactive Member Role Status Dates Dr. Negra Meneses MD Primary Care Provider Active Start: September 25, 2024 End: September 25, 2024 Dr. Negra Meneses MD Attending Provider Active Start: September 25, 2024 End: September 25, 2024 Dr. Negra Mneeses MD Referring Provider Active Start: September 25, 2024 End: September 25, 2024 Field Irrigation Worker Relationship Specialty Start Date End Date Vega Ochoa MD [facility] 03/28/11 Team Status: Active Member Role/Relationship Status Dates Dr. Negra Meneses MD Primary Care Provider Active Team Status: Inactive Member Role/Relationship Status Dates Dr. Negra Meneses MD Primary Care Provider Active Start: February 24, 2025 End: February 24, 2025 Dr. Negra Meneses MD Referring Provider Active Start: February 24, 2025 End: February 24, 2025 Garret JIN PA Attending Provider Active Start: February 24, 2025 End: February 24, 2025 Field Irrigation Worker Relationship Specialty Start Date End Date Vega Ochoa MD [facility] 03/28/11 Team Status: Active Member Role/Relationship Status Dates Dr. Negra Meneses MD Primary care physician Active Team Status: Inactive Member Role/Relationship Status Dates Dr. Negra Meneses MD Primary care physician Active Start: February 24, 2025 End: February 24, 2025 Dr. Negra Meneses MD Referring Provider Active Start: February 24, 2025 End: February 24, 2025 DAVIN Rouse Attending physician Active Start: February 24, 2025 End: February 24, 2025 Team Status: Inactive Member Role/Relationship Status Dates Dr. Negra Meneses MD Primary care physician Active Start: March 26, 2025 End: March 26, 2025 Dr. Nito Cardenas MD Attending physician Acti ve Start: March 26, 2025 End: March 26, 2025 Dr. Nito Cardenas MD Referring Provider Activ e Start: March 26, 2025 End: March 26, 2025 Source Comments (unrecognize d section and content) In the event this informatio n is protected by the [facility] Confidentiality of Alcohol and Drug Abuse Patient Records regulations: The Federal rules restrict any use of the information to criminally investigate or prosecute any alcohol or drug abuse patient.[facility] the event this information is protected by the Federal Confidentiality of Alcohol and Drug Abuse Patient Records regulations: The Federal rules restrict any use of the information to criminally investigate or prosecute any alcohol or drug abuse patient.[facility] the event this information is protected by the Federal Confidentiality of Alcohol and Drug Abuse Patient Records regulations: The Federal rules restrict any use of the information to criminally investigate or prosecute any alcohol or drug abuse patient.[facility] the event this information is protected by the Federal Confidentiality of Alcohol and Drug Abuse Patient Records regulations: The Federal rules restrict any use of the information to criminally investigate or prosecute any alcohol or drug abuse patient.[facility] the event this information is protected by the Federal Confidentiality of Alcohol and Drug Abuse Patient Records regulations: The Federal rules restrict any use of the information to criminally investigate or prosecute any alcohol or drug abuse patient.[facility] the event this information is protected by the Federal Confidentiality of Alcohol and Drug Abuse Patient Records regulations: The Federal rules restrict any use of the information to criminally investigate or prosecute any alcohol or drug abuse patient.[facility] the event this information is protected by the Federal Confidentiality of Alcohol and Drug Abuse Patient Records regulations: The Federal rules restrict any use of the information to criminally investigate or prosecute any alcohol or drug abuse patient.[facility] the event this information is protected by the Federal Confidentiality of Alcohol and Drug Abuse Patient Records regulations: The Federal rules restrict any use of the information to criminally investigate or prosecute any alcohol or drug abuse patient.[facility] the event this information is protected by the Federal Confidentiality of Alcohol and Drug Abuse Patient Records regulations: The Federal rules restrict any use of the information to criminally investigate or prosecute any alcohol or drug abuse patient.[facility] the event this information is protected by the Federal Confidentiality of Alcohol and Drug Abuse Patient Records regulations: The Federal rules restrict any use of the information to criminally investigate or prosecute any alcohol or drug abuse patient.[facility] Reason for Visit (unrecogniz ed section and content) Reason Comments EGD Consult Reason Comments Results Barium Swallow Reason Comments Results Reason Comments Results Endoscopy results Reason Comments Med Change Request Reason Comments 12/12/2023 [facility] waitlist Release Of Medical Records Reason Comments Established Patient Reason Comments New Nail Check (unrecognized sect ion and content) No Status Records FoundNo Status Records Found INFORMATION SOURCE (unrecogn ized section and content) DATE CREATED AUTHOR 02/08/2025 [facility] DATE CREATED AUTHOR AUTHOR'S DULCE NAPIER 05/04/2025 [facility] FOR RECORDS PERTAINING TO PATIENTS WHO ARE OR HAVE BEEN ENROLLED IN A CHEMICAL DEPENDENCY/SUBSTANCEABUSE PROGRAM, SOME INFORMATION MAY BE OMITTED. This clinical summary was aggregated from multiple sources. Caution should be exercised in using it in the provision of clinical care. This summary normalizes information from multiple sources, and as a consequence, information in this document may materially change the coding, format and clinical context of patient data. In addition, data may be omitted in some cases. CLINICAL DECISIONS SHOULD BE BASED ON THE PRIMARY CLINICAL RECORDS. [facility]. provides no warranty or guarantee of the accuracy or completeness of information in this document.
== END | disposition home or self-care (01) ==
LOC: CVS 13:52
PROVIDERS: PCP Internal Medicine; Referring Provider Internal Medicine Cardiovascular Disease; Visit Provider Internal Medicine Cardiovascular Disease
DX: I48.0 Paroxysmal atrial fibrillation (principal)
CPT/HCPCS: 93306